=== PATIENT | female | born 1930 | race Caucasian/White ===

== ENCOUNTER → 2016-10-05 | Outpatient (CLI) | payer MEDICARE, MEDICAID ==
[~2016-10-05] MED LIST: ATRV10T PO; DABI150C5 PO; DABI75CA3 PO; DIGO125T PO; DILT60TA PO; DLT120CCR PO; DLT180CCR PO; DLT240CCR PO; ENAL20TA PO; ENAL5TAB PO; EZET10TA5 PO; FURO40TA4 PO; LVT.05T PO; LVT.088T PO; METO-272 PO; METO-333 PO; METO50TA7 PO; POTA10CA43 PO; RIVA20TA2 PO
[2016-10-05 17:17] LABS: BASOPHILS % (AUTO) 0 % (0-10); EOSINOPHILS % (AUTO) 0 % (0-10); LYMPHOCYTES # (AUTO) 3.6 X 10^3 (1.0-4.0); LYMPHOCYTES % (AUTO) 20 % (12-44); MEAN CORPUSCULAR HEMOGLOBIN 32 PG (25-34); MEAN CORPUSCULAR HGB CONC 34 G/DL (32-36); MEAN CORPUSCULAR VOLUME 95 FL (80-99); MEAN PLATELET VOLUME 10.5 FL (7.4-10.4); MONOCYTES # (AUTO) 2.1 X 10^3 (0.0-1.0); MONOCYTES % (AUTO) 12 % (0-12); NEUTROPHILS % (AUTO) 68 % (42-75); PLATELET COUNT 252 10^3/uL (130-400); RED BLOOD COUNT 4.32 10^6/uL (4.35-5.85); RED CELL DISTRIBUTION WIDTH 13.4 % (10.0-14.5); WHITE BLOOD COUNT 17.7 10^3/uL (4.3-11.0)
[2016-10-05 17:40] LABS: BAND NEUTROPHILS 0 %; BASOPHILS % (MANUAL) 0 %; EOSINOPHILS % (MANUAL) 1 %; LYMPHOCYTES % (MANUAL) 34 %; NEUTROPHILS % (MANUAL) 65 %
[2016-10-05 17:43] LABS: ANION GAP 8 MMOL/L (5-14); BLOOD UREA NITROGEN 22 MG/DL (7-18); BUN/CREATININE RATIO 25; CALCIUM 8.6 MG/DL (8.5-10.1); CARBON DIOXIDE 23 MMOL/L (21-32); CHLORIDE 105 MMOL/L (98-107); CREATININE SERUM 0.88 MG/DL (0.60-1.30); GFR ESTIMATED > 60; GLUCOSE 71 MG/DL (70-105); POTASSIUM 4.3 MMOL/L (3.6-5.0); SODIUM 136 MMOL/L (135-145)
[2016-10-05 17:50] LABS: DIGOXIN 0.49 NG/ML (0.80-2.00)
== END ==
LOC: HH 17:10
PROVIDERS: ATTEND Family Medicine
DX: I50.9 Heart failure, unspecified (principal); I10 Essential (primary) hypertension
CPT/HCPCS: 80048; 80162; 85007; 85027

== ENCOUNTER 2016-12-06 09:05 | Outpatient (CLI) | payer MEDICARE, MEDICAID ==
[~2016-12-06] VITALS: Ht 154.9 cm; Wt 70.0 kg
[2016-12-06 09:09] VITALS: BP 128/73
[2016-12-06] MEDS ORDERED: FURO40TA4 PO (09:45)
[2016-12-06] MEDS ORDERED: RIVA20TA PO (09:45)
[2016-12-06] MEDS ORDERED: EZET10TA27 PO (09:45)
[2016-12-06] MEDS ORDERED: ATOR10TA66 PO (09:45)
[2016-12-06] MEDS ORDERED: DIGO125T PO (09:45)
[2016-12-06] MEDS ORDERED: LEVO88TA54 PO (09:45)
[2016-12-06] MEDS ORDERED: POTA10TA10 PO (09:45)
[2016-12-06] MEDS ORDERED: CLIN300C11 PO (09:48)
[2016-12-06] MEDS ORDERED: DILT120C53 PO (09:48)
[2016-12-06] MEDS ORDERED: ACID1TAB5 PO (09:48)
[2016-12-06] MEDS ORDERED: METO-270 PO (09:48)
[2016-12-06] MEDS ORDERED: RANI150T15 PO (09:48)
[2016-12-06 10:10] LABS: CALCIUM 9.6 MG/DL (8.5-10.1); CREATININE SERUM 1.09 MG/DL (0.60-1.30); POTASSIUM 4.5 MMOL/L (3.6-5.0)
[2016-12-06 10:18] LABS: DIGOXIN 1.67 NG/ML (0.80-2.00)
== END 2016-12-06 09:35 | disposition home or self-care (01) ==
LOC: PREOP 09:05
PROVIDERS: ATTEND Specialist
DX: Z01.812 Encounter for preprocedural laboratory examination (principal); K04.7 Periapical abscess without sinus
CPT/HCPCS: 36415; 80048; 80162; 87081

== ENCOUNTER 2021-02-11 10:49 | Emergency (ER) | payer MEDICARE, MEDICAID ==
[~2021-02-11] VITALS: Ht 162 cm; Wt 68.0 kg
[~2021-02-11 10:49] MED LIST changes: +ACID1TAB5 PO; +ATOR10TA66 PO; +CLIN-144 PO; +DIGO125T3 PO; +DILT120C53 PO; +EZET10TA49 PO; +LEVO88TA54 PO; +MTP25TSR PO; +POTA10TA10 PO; +RANI-613 PO
--- NOTE | 2021-02-11 11:04 | ED General ---
General Stated Complaint: GENERLIZED PROBLEMS Source of Information: EMS, Family Exam Limitations: No Limitations History of Present Illness Date Seen by Provider: Feb 11, 2021 Time Seen by Provider: 11:00 Initial Comments To ER by EMS from [facility] with reports of transient hypotension, increased ankle edema, and of unknown significance staff reports that she slept in her bed rather than recliner last night for the first time in 8 years. 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 Hx CHF & a-fib on digoxin, cardizem, xarelto, lasix. DNR status Timing/Duration: 12-24 Hours Severity: Moderate Associated Systoms: Denies Symptoms Allergies and Home Medications Allergies Coded Allergies: Penicillins (Unverified Allergy, Unknown, 06/04/14) codeine (Unverified Adverse Reaction, Unknown, NAUSEA, 09/29/10) Patient Home Medication List Home Medication List Reviewed: Yes Atorvastatin Calcium (Atorvastatin Calcium) 10 Mg Tablet, 10 MG PO HS, (Reported) Entered as Reported by: EVY ROBLERO on 12/06/16944 Clindamycin HCl (Clindamycin HCl) 300 Mg Capsule, 300 MG PO TID, (Reported) Entered as Reported by: EVY ROBLERO on 12/06/16947 Digoxin (Digoxin) 125 Mcg Tablet, 125 MCG PO DAILY, (Reported) Entered as Reported by: EVY ROBLERO on 12/06/16944 Diltiazem HCl (Cartia Xt) 120 Mg Cap.er.24h, 120 MG PO HS, (Reported) Entered as Reported by: EVY ROBLERO on 12/06/16947 Ezetimibe (Ezetimibe) 10 Mg Tablet, 10 MG PO DAILY, (Reported) Entered as Reported by: EVY ROBLERO on 12/06/16944 Furosemide (Furosemide) 40 Mg Tablet, 40 MG PO DAILY, (Reported) Entered as Reported by: EVY ROBLERO on 12/06/16944 L. Acidophilus/Bulgaricus (Lactinex Chewable Tablet) 1 Each Tab.chew, 1 EACH PO QID, (Reported) Entered as Reported by: EVY ROBLERO on 12/06/16947 Levothyroxine Sodium (Levothyroxine Sodium) 88 Mcg Tablet, 88 MCG PO DAILY, (Reported) Entered as Reported by: EVY ROBLERO on 12/06/16944 Metoprolol Succinate (Metoprolol Succinate) 25 Mg Tab.er.24h, 12.5 MG PO DAILY, (Reported) Entered as Reported by: EVY ROBLERO on 12/06/16947 Potassium Chloride (Potassium Chloride) 10 Meq Tablet.er, 10 MEQ PO DAILY, (Reported) Entered as Reported by: EVY ROBLERO on 12/06/16944 Ranitidine HCl (Zantac) 150 Mg Tablet, 150 MG PO DAILY, (Reported) Entered as Reported by: EVY ROBLERO on 12/06/16947 Rivaroxaban (Xarelto Tablet) 20 Mg Tablet, 20 MG PO HS, (Reported) Entered as Reported by: EVY ROBLERO on 12/06/16944 Review of Systems Review of Systems Constitutional: see HPI; No chills, No fever, No malaise EENTM: see HPI Respiratory: no symptoms reported; No cough, No dyspnea on exertion, No hemoptysis, No orthopnea, No phlegm, No short of breath Cardiovascular: see HPI, edema Genitourinary: no symptoms reported Musculoskeletal: no symptoms reported Skin: no symptoms reported Psychiatric/Neurological: No Symptoms Reported Hematologic/Lymphatic: No Symptoms Reported Immunological/Allergic: no symptoms reported Past Bdjixdh-Pigxki-Buafcp Hx Seasonal Allergies Seasonal Allergies: No Past Medical History Hysterectomy COPD Atrial Fibrillation, Hypertension Stroke Reproductive Disorders: 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 5.0oz. 69.094104kt; 29.2 BMI Method: General Appearance: No Apparent Distress, WD/WN, Chronically ill, Other (alert hemodynamically stable with HR a fib 70s-80s and BP for EMS on arrival of 112/80 and for us 116/75. ) Eyes: Bilateral Eye Normal Inspection, Bilateral Eye PERRL HEENT: PERRL/EOMI, TMs Normal Neck: Full Range of Motion, Normal Inspection Respiratory: No Accessory Muscle Use, No Respiratory Distress, Other (crackles LLL) Cardiovascular: Normal Peripheral Pulses, Irregularly Irregular Gastrointestinal: Normal Bowel Sounds, Non Tender, Soft Extremity: Normal Capillary Refill, No Calf Tenderness, Other (3+ pitting edema up to mid tibia bilat. ) Neurologic/Psychiatric: Alert Skin: Normal Color, Warm/Dry Focused Exam Lactate Level 02/11/21 11:30: Lactic Acid Level 1.07 Lactic Acid Level Laboratory Tests Test 02/11/21 11:30 Lactic Acid Level 1.07 MMOL/L (0.50-2.00) Progress/Results/Core Measures Suspected Sepsis SIRS Temperature: Pulse: Respiratory Rate: Laboratory Tests 02/11/21 11:05: White Blood Count 9.3 Blood Pressure / Mean: 02/11/21 11:30: Lactic Acid Level 1.07 Laboratory Tests 02/11/21 11:05: Creatinine 1.55H, INR Comment 1.8H, Platelet Count 225, Total Bilirubin 0.7 Results/Orders Lab Results Laboratory Tests Test 02/11/21 11:05 02/11/21 11:30 02/11/21 14:03 Range/Units White Blood Count 9.3 4.3-11.0 10^3/uL Red Blood Count 3.59 L 3.80-5.11 10^6/uL Hemoglobin 11.8 11.5-16.0 g/dL Hematocrit 36 35-52 % Mean Corpuscular Volume 101 H 80-99 fL Mean Corpuscular Hemoglobin 33 25-34 pg Mean Corpuscular Hemoglobin Concent 33 32-36 g/dL Red Cell Distribution Width 13.2 10.0-14.5 % Platelet Count 225 130-400 10^3/uL Mean Platelet Volume 10.4 9.0-12.2 fL Immature Granulocyte % (Auto) 0 % Neutrophils (%) (Auto) 54 42-75 % Lymphocytes (%) (Auto) 34 12-44 % Monocytes (%) (Auto) 10 0-12 % Eosinophils (%) (Auto) 2 0-10 % Basophils (%) (Auto) 1 0-10 % Neutrophils # (Auto) 5.0 1.8-7.8 10^3/uL Lymphocytes # (Auto) 3.1 1.0-4.0 10^3/uL Monocytes # (Auto) 0.9 0.0-1.0 10^3/uL Eosinophils # (Auto) 0.2 0.0-0.3 10^3/uL Basophils # (Auto) 0.1 0.0-0.1 10^3/uL Immature Granulocyte # (Auto) 0.0 0.0-0.1 10^3/uL Prothrombin Time 20.9 H 12.2-14.7 SEC INR Comment 1.8 H 0.8-1.4 Activated Partial Thromboplast Time 32 24-35 SEC Sodium Level 145 135-145 MMOL/L Potassium Level 4.9 3.6-5.0 MMOL/L Chloride Level 110 H 98-107 MMOL/L Carbon Dioxide Level 25 21-32 MMOL/L Anion Gap 10 5-14 MMOL/L Blood Urea Nitrogen 26 H 7-18 MG/DL Creatinine 1.55 H 0.60-1.30 MG/DL Estimat Glomerular Filtration Rate 32 BUN/Creatinine Ratio 17 Glucose Level 93 70-105 MG/DL Calcium Level 9.8 8.5-10.1 MG/DL Corrected Calcium 10.0 8.5-10.1 MG/DL Total Bilirubin 0.7 0.1-1.0 MG/DL Aspartate Amino Transf (AST/SGOT) 13 5-34 U/L Alanine Aminotransferase (ALT/SGPT) 7 0-55 U/L Alkaline Phosphatase 75 40-136 U/L B-Type Natriuretic Peptide 247.5 H <100.0 PG/ML Total Protein 8.1 6.4-8.2 GM/DL Albumin 3.7 3.2-4.5 GM/DL Procalcitonin 0.10 H <0.10 NG/ML Digoxin Level 1.83 0.80-2.00 NG/ML Lactic Acid Level 1.07 0.50-2.00 MMOL/L Urine Color YELLOW Urine Clarity CLEAR Urine pH 5.5 5-9 Urine Specific [place] 1.020 1.016-1.022 Urine Protein NEGATIVE NEGATIVE Urine Glucose (UA) NEGATIVE NEGATIVE Urine Ketones NEGATIVE NEGATIVE Urine Nitrite NEGATIVE NEGATIVE Urine Bilirubin NEGATIVE NEGATIVE Urine Urobilinogen 0.2 < = 1.0 MG/DL Urine Leukocyte Esterase NEGATIVE NEGATIVE Urine RBC (Auto) NEGATIVE NEGATIVE Urine RBC NONE /HPF Urine WBC NONE /HPF Urine Squamous Epithelial Cells 0-2 /HPF Urine Crystals PRESENT H /LPF Urine Amorphous Sediment MOD TAMIKO URATES H /LPF Urine Bacteria NEGATIVE /HPF Urine Casts NONE /LPF Urine Mucus NEGATIVE /LPF Urine Culture Indicated NO My Orders Orders - PHILIPPE HIDALGO APRN Cbc With Automated Diff (02/11/21 10:59) Comprehensive Metabolic Panel (02/11/21 10:59) Blood Culture (02/11/21 10:59) Sputum Culture (02/11/21 10:59) Urinalysis (02/11/21 10:59) Urine Culture (02/11/21 10:59) Protime With Inr (02/11/21 10:59) Partial Thromboplastin Time (02/11/21 10:59) Chest 1 View, Ap/Pa Only (02/11/21 10:59) Ed Iv/Invasive Line Start (02/11/21 10:59) Vital Signs Adult Sepsis Patie Q15M (02/11/21 10:59) O2 (02/11/21 10:59) Remove Rings In Anticipation O (02/11/21 10:59) Lactic Acid Analyzer (02/11/21 10:59) BNP (02/11/21 10:59) Straight Cath (Urinary) (02/11/21 10:59) Ct Chest Wo (02/11/21 12:08) Procalcitonin (Pct) (02/11/21 12:09) Ns Iv 500 Ml (Sodium Chloride 0.9%) (02/11/21 14:00) Digoxin (02/11/21 14:36) Vital Signs/I&O 02/11/21 10:49 Temp 36.3 Pulse 84 Resp 12 B/P (MAP) 116/64 (81) Pulse Ox 97 O2 Delivery Room Air Capillary Refill : Diagnostic Imaging Diagonstic Imaging: CT Comments NAME: [facility] REC#: [id number] PT STATUS: REG ER : 1930 PHYSICIAN: PHILIPPE HIDALGO APRN ADMIT DATE: 02/11/21/ER Draft Date of Exam:02/11/21 CT CHEST WO EXAMINATION: CT chest without contrast. TECHNIQUE: Multiple contiguous axial images were obtained through the chest without the use of intravenous contrast. All CT scans use one or more of the following dose optimizing techniques: automated exposure control, MA and/or KvP adjustment based on patient size and exam type or iterative reconstruction. HISTORY: pneumothorax COMPARISON: 02/11/2021. FINDINGS: Thyroid: There is asymmetric enlargement of the right lobe of the thyroid gland. Mediastinum: Heart size is enlarged with a small pericardial effusion. Calcifications of the aorta and coronary vessels. Thoracic aorta is normal in caliber. No suspicious lymphadenopathy. Lungs and airways: There is mild biapical scarring. Linear scarring or atelectasis is seen within the lingula and left lower lobe. No pleural effusion, pneumothorax, or consolidation. No suspicious pulmonary lesion. The airways are normal. Upper abdomen: There is a hyperdense right renal sinus lesion measuring up to 1.5 cm. Musculoskeletal: Compression fracture of the T11 vertebral body. Multilevel degenerative changes of the spine. No suspicious osseous lesion. IMPRESSION: 1. No pneumothorax. Finding on prior radiograph may represent artifact from patient positioning or external device. 2. Asymmetric enlargement of the right lobe of the thyroid gland. Consider thyroid ultrasound for baseline characterization. 3. Hyperdense right renal sinus lesion measuring up to 1.5 cm. Consider follow-up with renal ultrasound. 4. Age-indeterminate compression fracture of the T11 vertebral body. 4. Cardiomegaly with small pericardial effusion. Dictated on workstation # [id number] Dict: 02/11/21 1320 Trans: 02/11/21 1334 [id number] [id number] Interpreted by: DEL PEREA DO Electronically signed by: Departure Communication (Admissions) Family Conversation 1407-blood pressure 93/60. We will give 500 mL normal saline. 1535-blood pressure 107/63. Normal saline bolus still infusing. Plan to transfer back to the detention. Given the dry mucous membranes, the elevated BUN and creatinine suspect she may be a little dry from her Lasix use. NAME: [facility] REC#: [id number] PT STATUS: REG ER : 1930 PHYSICIAN: PHILIPPE HIDALGO APRN ADMIT DATE: 02/11/21/ER Draft Date of Exam:02/11/21 CHEST 1 VIEW, AP/PA ONLY INDICATION: Sepsis. COMPARISON: 02/20/2012. FINDINGS: There is blunting of the left costophrenic angle. Increased interstitial infiltrates are noted throughout both lungs. A small pneumothorax has developed on the left. The heart is enlarged. Pulmonary vasculature does not appear increased. IMPRESSION: 1. There is a small pneumothorax now present on the left. 2. There is left basilar pleural effusion. Interstitial infiltrates throughout suggest some pulmonary edema. Dictated on workstation # [id number] Dict: 02/11/21 1132 Trans: 02/11/21 1135 CV [id number] Interpreted by: MARVIN OSBORN MD Electronically signed by: Impression Primary Impression: Hypotension Disposition: ADMITTED INPATIENT Condition: Stable Departure-Patient Inst. Decision time for Depature: 15:34 Referrals: CARTER KINNEY MD (PCP/Family) Primary Care Physician Patient Instructions: Low Blood Pressure (DC) Add. Discharge Instructions: . Follow-up with Dr. Kinney next week 2. Return ER for any concerns. PHILIPPE HIDALGO WRAPPER SIZER Feb 11, 2021 11:04
[2021-02-11 11:13] LABS: BASOPHILS # (AUTO) 0.1 10^3/uL (0.0-0.1); BASOPHILS % (AUTO) 1 % (0-10); EOSINOPHILS # (AUTO) 0.2 10^3/uL (0.0-0.3); EOSINOPHILS % (AUTO) 2 % (0-10); HEMATOCRIT 36 % (35-52); HEMOGLOBIN 11.8 g/dL (11.5-16.0); LYMPHOCYTES # (AUTO) 3.1 10^3/uL (1.0-4.0); LYMPHOCYTES % (AUTO) 34 % (12-44); MEAN CORPUSCULAR HEMOGLOBIN 33 pg (25-34); MEAN CORPUSCULAR HGB CONC 33 g/dL (32-36); MEAN CORPUSCULAR VOLUME 101 fL (80-99); MEAN PLATELET VOLUME 10.4 fL (9.0-12.2); MONOCYTES # (AUTO) 0.9 10^3/uL (0.0-1.0); MONOCYTES % (AUTO) 10 % (0-12); NEUTROPHILS % (AUTO) 54 % (42-75); PLATELET COUNT 225 10^3/uL (130-400); WHITE BLOOD COUNT 9.3 10^3/uL (4.3-11.0)
[2021-02-11 11:28] LABS: ALBUMIN 3.7 GM/DL (3.2-4.5); INR 1.8 (0.8-1.4); POTASSIUM 4.9 MMOL/L (3.6-5.0); PROTHROMBIN TIME PATIENT 20.9 SEC (12.2-14.7)
[2021-02-11 11:30] LABS: CALCIUM 9.8 MG/DL (8.5-10.1)
[2021-02-11 11:31] LABS: TOTAL PROTEIN 8.1 GM/DL (6.4-8.2)
[2021-02-11 11:33] LABS: BILIRUBIN,TOTAL 0.7 MG/DL (0.1-1.0)
[2021-02-11 11:34] LABS: CREATININE SERUM 1.55 MG/DL (0.60-1.30)
--- NOTE | 2021-02-11 11:35 | Diagnostic Imaging Report ---
INDICATION: Sepsis. COMPARISON: 02/20/2012. FINDINGS: There is blunting of the left costophrenic angle. Increased interstitial infiltrates are noted throughout both lungs. A small pneumothorax has developed on the left. The heart is enlarged. Pulmonary vasculature does not appear increased. IMPRESSION: 1. There is a small pneumothorax now present on the left. 2. There is left basilar pleural effusion. Interstitial infiltrates throughout suggest some pulmonary edema. Dictated by: Dictated on workstation # [id number]
--- NOTE | 2021-02-11 13:34 | Diagnostic Imaging Report ---
EXAMINATION: CT chest without contrast. TECHNIQUE: Multiple contiguous axial images were obtained through the chest without the use of intravenous contrast. All CT scans use one or more of the following dose optimizing techniques: automated exposure control, MA and/or KvP adjustment based on patient size and exam type or iterative reconstruction. HISTORY: pneumothorax COMPARISON: 02/11/2021. FINDINGS: Thyroid: There is asymmetric enlargement of the right lobe of the thyroid gland. Mediastinum: Heart size is enlarged with a small pericardial effusion. Calcifications of the aorta and coronary vessels. Thoracic aorta is normal in caliber. No suspicious lymphadenopathy. Lungs and airways: There is mild biapical scarring. Linear scarring or atelectasis is seen within the lingula and left lower lobe. No pleural effusion, pneumothorax, or consolidation. No suspicious pulmonary lesion. The airways are normal. Upper abdomen: There is a hyperdense right renal sinus lesion measuring up to 1.5 cm. Musculoskeletal: Compression fracture of the T11 vertebral body. Multilevel degenerative changes of the spine. No suspicious osseous lesion. IMPRESSION: 1. No pneumothorax. Finding on prior radiograph may represent artifact from patient positioning or external device. 2. Asymmetric enlargement of the right lobe of the thyroid gland. Consider thyroid ultrasound for baseline characterization. 3. Hyperdense right renal sinus lesion measuring up to 1.5 cm. Consider follow-up with renal ultrasound. 4. Age-indeterminate compression fracture of the T11 vertebral body. 4. Cardiomegaly with small pericardial effusion. Dictated by: Dictated on workstation # [id number]
[2021-02-11] MEDS ORDERED: NS IV 500 ML 500 ML IV SCH (14:00)
[2021-02-11 14:11] LABS: BILIRUBIN,URINE NEGATIVE (NEGATIVE); CLARITY,URINE CLEAR; COLOR,URINE YELLOW; GLUCOSE, URINE (UA) NEGATIVE (NEGATIVE); KETONES,URINE NEGATIVE (NEGATIVE); LEUKOCYTE ESTERASE ,URINE NEGATIVE (NEGATIVE); NITRITE,URINE NEGATIVE (NEGATIVE); PH,URINE 5.5 (5-9); PROTEIN,URINE NEGATIVE (NEGATIVE)
[2021-02-11 14:25] LABS: AMORPHOUS SEDIMENT,UR MOD AMOR URATES /LPF; BACTERIA,URINE NEGATIVE /HPF; SQUAMOUS EPITHELIAL CELL,UR 0-2 /HPF
[2021-02-11 16:31] VITALS: BP 107/71
== END 2021-02-11 15:55 | disposition other institution (70) ==
LOC: EDUNIT# 10:49 → ER 10:50
DX: I95.9 Hypotension, unspecified (principal); J44.9 Chronic obstructive pulmonary disease, unspecified; I10 Essential (primary) hypertension; K21.9 Gastro-esophageal reflux disease without esophagitis; I48.91 Unspecified atrial fibrillation; Z86.73 Personal history of transient ischemic attack (TIA), and cerebral infarction without residual deficits; Z79.01 Long term (current) use of anticoagulants; Z79.899 Other long term (current) drug therapy
CPT/HCPCS: 36415; 71045; 71250; 80053; 80162; 81000; 83605; 83880; 84145; 85025; 85610; 85730; 87040; 87088

== ENCOUNTER 2022-05-26 05:38 | Outpatient (CLI) | payer MEDICARE, MEDICAID ==
[~2022-05-26] VITALS: Ht 152.4 cm; Wt 61.1 kg
[2022-05-31] MEDS ORDERED: FURO20TA4 PO ×2 (09:19)
[2022-05-31] MEDS ORDERED: NYST15PO4 TP (09:19)
[2022-05-31] MEDS ORDERED: CHOL125C7 PO (09:19)
[2022-05-31] MEDS ORDERED: LACTINEX PO (09:19)
[2022-05-31] MEDS ORDERED: NYST15CR35 TP (09:19)
[2022-05-31] MEDS ORDERED: FAMO-144 PO (09:19)
[2022-05-31] MEDS ORDERED: MECO10005 PO (09:19)
[2022-05-31] MEDS ORDERED: COLE1TAB PO (09:19)
== END 2022-05-31 15:55 | disposition home or self-care (01) ==
LOC: PREOP 05:38
PROVIDERS: ATTEND Surgery
DX: Z01.818 Encounter for other preprocedural examination (principal)

== ENCOUNTER 2022-06-02 11:00 | Day surgery (SDC) | payer MEDICARE, MEDICAID ==
[2022-06-02] VITALS (11 sets, daily range): BP systolic 119–133; BP diastolic 56–86
[~2022-06-02] VITALS: Ht 152 cm; Wt 61.1 kg
[~2022-06-02 11:00] MED LIST changes: +CHOL125C7 PO; +COLE1TAB PO; +FAMO-144 PO; +FURO20TA4 PO; +LACTINEX PO; +MECO10005 PO; +NYST15CR35 TP; +NYST15PO4 TP
[2022-06-02] MEDS ORDERED: CLINDAMYCIN 600 MG/50 ML IVPB 50 ML IV ONE (11:15)
[2022-06-02] MEDS ORDERED: LACTATED RINGERS 1,000 ML IV PRN (11:15)
[2022-06-02] MEDS ORDERED: proPOfol 200 MG/20 ML (DIPRIVAN) VIAL IV ONE (11:43)
[2022-06-02] MEDS ORDERED: ONDANSETRON 4 MG/2 ML (SDV) Z0FRAN ONE (11:43)
[2022-06-02] MEDS ORDERED: LIDOCAINE PF 2% 5 ML (XYLOCAINE) VIAL ONE (11:43)
[2022-06-02] MEDS ORDERED: SEVOFLURANE (ULTANE) 15 ML INHAL SOLN ONE ×2 (11:43→12:34)
[2022-06-02] MEDS ORDERED: fentaNYL INJ 100 MCG/2 ML AMP ONE (11:43)
--- NOTE | 2022-06-02 11:47 | Progress Note-Pre Operative ---
Pre-Operative Progress Note Date H&P Reviewed: Jun 02, 2022 Time H&P Reviewed: 11:46 History & Physical: H&P Reviewed, Patient Examed, No changes noted Pre-Operative Diagnosis: left skin lesion AMANDA STEVEN DO Jun 02, 2022 11:47
[2022-06-02] MEDS ORDERED: PHENYLEPHRINE 100 MCG/ML 10 ML (ANESTHESIA) SYR ONE (12:13)
[2022-06-02] MEDS ORDERED: BUP/EPI 0.5% 1:200,000 (SENSORCAINE) 30 ML VIAL INJ ONE (12:29)
--- NOTE | 2022-06-02 12:42 | Anesthesia-General Post-Op ---
General Patient Condition Mental Status/LOC: Same as Preop Cardiovascular: Satisfactory Nausea/Vomiting: Absent Respiratory: Satisfactory Pain: Controlled Complications: Absent Post Op Complications Complications None Follow Up Care/Instructions Patient Instructions None needed. Anesthesia/Patient Condition Patient Condition Patient is doing well, no complaints, stable vital signs, no apparent adverse anesthesia problems. No complications reported per nursing. GEOVANNA FORD CRNA Jun 02, 2022 12:41
[2022-06-02] MEDS ORDERED: fentaNYL INJ 100 MCG/2 ML AMP IVP ONE (12:45)
[2022-06-02] MEDS ORDERED: MEPERIDINE (DEMEROL) INJ 50 MG/ML IVP ONE (12:45)
[2022-06-02] MEDS ORDERED: ONDANSETRON 4 MG/2 ML (SDV) Z0FRAN IVP PRN (12:45)
--- NOTE | 2022-06-02 12:52 | Discharge Inst-Simple/Standard ---
Discharge Inst-Standard Patient Instructions/Follow Up Plan of Care/Instructions/FU: 1 WEEK MAURIZIO Activity as Tolerated: No Discharge Diet: Regular Diet Other Inst to Patient Follow up Appt: Make appointment for 1 week. Instructions: No lifting greater than 10 pounds. No strenuous activity. May shower in 24 hours, no tub bath or soaking. Use incentive spirometer at home as directed. No Smoking Skin/Wound Care: DRESSING CHANGES NEED TO BE DONE DAILY AND IF DRESSING IS SATURATED. REMOVE OLD DRESSING, IRRIGATE WITH STERILE WATER OR SALINE, PAT DRY, PACK WOUND TO LEFT LEG WITH KERLEX AND WRAP THEN SECURE DRESSING. Symptoms to Report: Appetite Changes, Extremity Discoloration, Numbness/Tingling, Swelling Increased, Bleeding Excessive, Eyesight Changes, Pain Increased, Urine Color Change, Constipation(Persistent), Fever over 101 degree F, Pain/Pressure in chest, Urinating Difficulty, Cough Up/Vomit Blood, Heart Beat Irreg/Pounding, Pain/Pressure in jaw, Vaginal Bleeding Increase, Cramps in feet or legs, Lightheadedness, Pain/Pressure in shoulder, Diarrhea(Persistent), Memory Changes Suddenly, Questions/Concerns, Weight gain consecutive days, Dizziness/Fainting, Nausea/Vomiting, Shortness of Breath, Weight gain over 2 pounds If questions or concerns contact your physician Or seek help at emergency department. AMANDA STEVEN DO Jun 02, 2022 12:51
--- NOTE | 2022-06-02 12:53 | Progress Note-Post Operative ---
Post-Operative Progess Note Surgeon (s)/Software Engineer Mobile (s) Surgeon AMANDA STEVEN DO Software Engineer Mobile: NA Pre-Operative Diagnosis left skin lesion Post-Operative Diagnosis SAME Procedure & Operative Findings Date of Procedure 06/02/22 Procedure Performed/Findings EXCISION OF SKIN LESION LEFT LOWER EXTREMITY 5.5X4CM. Anesthesia Type GENERAL Estimated Blood Loss Estimated blood loss (mL): MINIMAL Specimens/Packing Specimens Removed LEFT LOWER LEG EXTREMITY. Packing: KERLEX AMANAD STEVEN DO Jun 02, 2022 12:53
[2022-06-02] MEDS ORDERED: APIX2.5T PO (13:19)
--- NOTE | 2022-06-04 00:23 | OPERATIVE REPORT ---
DATE OF SERVICE: 06/02/2022 PREOPERATIVE DIAGNOSIS: Left leg skin lesion. POSTOPERATIVE DIAGNOSIS: Left leg skin lesion. PROCEDURE: Excision of left leg skin lesion, 5.5 x 4 cm. SURGEON: Amanda Parker DO ANESTHESIA: General. ESTIMATED BLOOD LOSS: Minimal. COMPLICATIONS: None. INDICATIONS: The patient is an 89-year-old female with a growing mass to the left lower extremity. Her and family wished to have it removed. They understand the need to keep this open due to the size and location and will have the healing from the bottom out, which may be more complicated due to her lower extremity swelling. They understand and wished to proceed. Consent was signed in the chart. DESCRIPTION OF PROCEDURE: The patient was taken to the operating suite. She was prepped and draped in sterile fashion. Timeout was performed. Local anesthetic was infiltrated around the lesion. A circular incision was made around the lesion measuring 5.5 x 4 cm. Skin and subcutaneous tissue was then removed using cautery. Hemostasis was achieved. Lots of edema throughout the tissue. The specimen was labeled long suture lateral, short suture superiorly. The wound was then packed with Kerlix and sterile bandage was applied. The patient tolerated the procedure well without complications, taken to recovery room in stable condition. Job ID: [id number] DocumentID: [id number] Dictated Date: 06/03/2022 22:01:29 Grounds Maintenance Supervisor Date: 06/04/2022 00:21:00 Dictated By: AMANDA PARKER DO
== END 2022-06-02 14:50 ==
LOC: SDC 11:00
PROVIDERS: ATTEND Surgery
DX: C44.712 Basal cell carcinoma of skin of right lower limb, including hip (principal); Z87.891 Personal history of nicotine dependence
CPT/HCPCS: 87081

== ENCOUNTER 2022-06-04 11:27 | Emergency (ER) | payer MEDICARE, MEDICAID ==
[~2022-06-04] VITALS: Ht 157.5 cm; Wt 50.0 kg
[~2022-06-04 11:27] MED LIST changes: +APIX2.5T PO
[2022-06-04] MEDS ORDERED: ACETAMINOPHEN 500 MG TAB (TYLENOL) PO ONE (11:45)
--- NOTE | 2022-06-04 11:56 | ED Integumentary General ---
General Chief Complaint: Skin/Wound Problems Stated Complaint: LEG WOUND Nursing Triage Note: PT TO ED BY EMS FROM [facility] WITH C/O L LEG WOUND. EMS REPORTS PT HAD BASAL CELL CARCINOMA REMOVED FROM LLE ON MONDAY BY DR. STEVEN. [facility] STAFF CALLED EMS BECAUSE THEY WERE CONCERNED ABOUT REMOVING THE GAUZE BECAUSE PT IS ON BLOOD THINNER. REDNESS NOTED AROUND WOUND. Source: family Exam Limitations: no limitations History of Present Illness Date Seen by Provider: Jun 04, 2022 Time Seen by Provider: 11:35 Initial Comments 89-year-old female presents to ER via EMS from assisted living. Patient unable to contribute to assessment. History obtained from daughter. Daughter states that patient had a basal cell carcinoma removed from her right lower leg on . States that she is post to do daily dressing changes, and today she was unable to pull the dressing off due to it being stuck to the wound, states she was concerned about pulling it off due to blood thinners. Daughter also reports new redness around the wound that was not there yesterday. Denies fevers. Allergies and Home Medications Allergies Coded Allergies: Penicillins (Verified Allergy, Unknown, 06/02/22) codeine (Verified Adverse Reaction, Unknown, NAUSEA, 06/02/22) Patient Home Medication List Home Medication List Reviewed: Yes Apixaban (Eliquis) Unknown Strength Tablet, Unknown Dose PO BID, (Reported) Entered as Reported by: MICAH SMITH on 06/02/22 1319 Atorvastatin Calcium (Atorvastatin Calcium) 10 Mg Tablet, 10 MG PO HS, (Reported) Entered as Reported by: EVY ROBLERO on 12/06/16944 Cholecalciferol (Vitamin D3) (D3-5000) 125 Mcg (5000 Unit) Capsule, 125 MCG PO WEEK, (Reported) Entered as Reported by: Sosa Tolbert on 05/31/22918 Colestipol HCl (Colestipol HCl) 1 Gram Tablet, 1 GM PO HS, (Reported) Entered as Reported by: Sosa Tolbert on 05/31/22918 Digoxin (Digoxin) 125 Mcg Tablet, 125 MCG PO DAILY, (Reported) Entered as Reported by: EVY ROBLERO on 12/06/16944 Diltiazem HCl (Cartia Xt) 120 Mg Cap.er.24h, 120 MG PO HS, (Reported) Entered as Reported by: EVY ROBLERO on 12/06/16947 Famotidine (Acid Vp Respiratory (FAMOTIDINE)) 10 Mg Tablet, 10 MG PO BID, (Reported) Entered as Reported by: Sosa Tolbert on 05/31/22918 Furosemide (Furosemide) 20 Mg Tablet, 20 MG PO DAILY, (Reported) Entered as Reported by: Sosa Tolbert on 05/31/22918 Furosemide (Furosemide) 20 Mg Tablet, 20 MG PO NOON PRN for SBP>115, (Reported) Entered as Reported by: Sosa Tolbert on 05/31/22918 Levothyroxine Sodium (Levothyroxine Sodium) 88 Mcg Tablet, 88 MCG PO DAILY, (Reported) Entered as Reported by: EVY ROBLERO on 12/06/16944 Mecobalamin (B12 Active) 1,000 Mcg Tab.chew, 500 MCG PO DAILY, (Reported) Entered as Reported by: Sosa Tolbert on 05/31/22918 Metoprolol Succinate (Metoprolol Succinate) 25 Mg Tab.er.24h, 12.5 MG PO DAILY, (Reported) Entered as Reported by: EVY ROBLERO on 12/06/16947 Nystatin (Nystatin) 100,000 Unit/Gram Cream..g., 15 GM TP BID, (Reported) Entered as Reported by: Sosa Tolbert on 05/31/22918 Nystatin (Nystatin) 100,000 Unit/Gram Powder, 15 GM TP BID, (Reported) Entered as Reported by: Sosa Tolbert on 05/31/22918 Rivaroxaban (Xarelto Tablet) 20 Mg Tablet, 20 MG PO HS, (Reported) Entered as Reported by: EVY ROBLERO on 12/06/16944 [Lactinex] , 1 TAB PO BID, (Reported) Entered as Reported by: Sosa Tolbert on 05/31/22918 Discontinued Medications Clindamycin HCl (Clindamycin HCl) 300 Mg Capsule, 300 MG PO TID, (Reported) Discontinued Reason: No Longer Taking Entered as Reported by: EVY ROBLERO on 12/06/16947 Ezetimibe (Ezetimibe) 10 Mg Tablet, 10 MG PO DAILY, (Reported) Discontinued Reason: No Longer Taking Entered as Reported by: EVY ROBLERO on 12/06/16 0945 Furosemide (Furosemide) 40 Mg Tablet, 40 MG PO DAILY, (Reported) Discontinued Reason: New Order Entered as Reported by: EVY ROBLERO on 12/06/16 0945 L. Acidophilus/Bulgaricus (Lactinex Chewable Tablet) 1 Each Tab.chew, 1 EACH PO QID, (Reported) Discontinued Reason: No Longer Taking Entered as Reported by: EVY ROBLERO on 12/06/16 0948 Potassium Chloride (Potassium Chloride) 10 Meq Tablet.er, 10 MEQ PO DAILY, (Reported) Discontinued Reason: No Longer Taking Entered as Reported by: EVY ROBLERO on 12/06/1645 Ranitidine HCl (Zantac) 150 Mg Tablet, 150 MG PO DAILY, (Reported) Discontinued Reason: No Longer Taking Entered as Reported by: EVY ROBLERO on 12/06/1648 Review of Systems Review of Systems Constitutional: no symptoms reported Respiratory: no symptoms reported Cardiovascular: no symptoms reported Skin: change in color, other (Surgical wound, erythema) Past [id number]-[id number]-[id number] Hx Patient Social History Tobacco Use?: No Smoking Status: Former Smoker Use of E-Cig and/or Vaping dev: No Substance use?: No Alcohol Use?: No Pt feels they are or have been: No Immunizations Up To Date Tetanus Booster (TDap): Unknown Influenza Vaccine Up-to-Date: Yes; Up-to-Date First/Initial COVID19 Vaccinat: X4 Second COVID19 Vaccination Sonu: X4 Third COVID19 Vaccination Date: X4 Seasonal Allergies Seasonal Allergies: Yes Past Medical History Surgery/Hospitalization HX: COPD, CHF, DYSPHASIA AND APHASIA R/T STROKE Surgeries: Yes (SKIN CANCER) Hysterectomy Respiratory: Yes COPD Currently Using CPAP: No Currently Using BIPAP: No Cardiac: Yes Atrial Fibrillation, Hypertension Neurological: Yes Dementia, Stroke Reproductive Disorders: No [employer] History: Hysterectomy Sexually Transmitted Disease: No Genitourinary: No Gastrointestinal: No Gastroesophageal Reflux, Diverticulosis, Chronic Diarrhea Musculoskeletal: Yes Osteoporosis, Rheumatoid Arthritis Endocrine: No HEENT: Yes Cataract Loss of Vision: Right Hearing Impairment: Hard of Hearing Cancer: Yes Skin Did You Recieve Any Treatments: Yes What Type of Treatment Did You: Surgical Intervention Psychosocial: No Integumentary: No Blood Disorders: No Adverse Reaction/Blood Tranf: No Physical Exam Vital Signs Vital Signs - First Documented 06/04/22 11:30 Pulse 116 Resp 16 B/P (MAP) 107/87 (94) Pulse Ox 98 O2 Delivery Room Air Capillary Refill : General Appearance: WD/WN, no apparent distress Neck: supple, normal inspection Cardiovascular: no gallop, no JVD, no murmur, irregularly irregular, other (Pitting edema in bilateral lower extremities) Respiratory: lungs clear, normal breath sounds, no respiratory distress, no accessory muscle use Extremities: pedal edema, other (Wound to left lower leg) Neurologic/Psychiatric: alert, disoriented x 3 Skin Problem Location: lower extremities (Left lower leg) Skin Problem Character: erythema, other (Surgical wound, areas of granulation, areas of slough, surrounding erythema to the skin ) Progress/Results/Core Measures Results/Orders Lab Results Laboratory Tests Test 06/04/22 12:05 Range/Units White Blood Count 9.4 4.3-11.0 10^3/uL Red Blood Count 3.33 L 3.80-5.11 10^6/uL Hemoglobin 10.7 L 11.5-16.0 g/dL Hematocrit 33 L 35-52 % Mean Corpuscular Volume 99 80-99 fL Mean Corpuscular Hemoglobin 32 25-34 pg Mean Corpuscular Hemoglobin Concent 33 32-36 g/dL Red Cell Distribution Width 13.2 10.0-14.5 % Platelet Count 203 130-400 10^3/uL Mean Platelet Volume 10.2 9.0-12.2 fL Immature Granulocyte % (Auto) 0 % Neutrophils (%) (Auto) 66 42-75 % Lymphocytes (%) (Auto) 23 12-44 % Monocytes (%) (Auto) 10 0-12 % Eosinophils (%) (Auto) 1 0-10 % Basophils (%) (Auto) 0 0-10 % Neutrophils # (Auto) 6.2 1.8-7.8 10^3/uL Lymphocytes # (Auto) 2.1 1.0-4.0 10^3/uL Monocytes # (Auto) 0.9 0.0-1.0 10^3/uL Eosinophils # (Auto) 0.1 0.0-0.3 10^3/uL Basophils # (Auto) 0.0 0.0-0.1 10^3/uL Immature Granulocyte # (Auto) 0.0 0.0-0.1 10^3/uL Prothrombin Time 27.6 H 12.2-14.7 SEC INR Comment 2.5 H 0.8-1.4 Activated Partial Thromboplast Time 38 H 24-35 SEC Sodium Level 140 135-145 MMOL/L Potassium Level 3.8 3.6-5.0 MMOL/L Chloride Level 105 98-107 MMOL/L Carbon Dioxide Level 26 21-32 MMOL/L Anion Gap 9 5-14 MMOL/L Blood Urea Nitrogen 21 H 7-18 MG/DL Creatinine 1.56 H 0.60-1.30 MG/DL Estimat Glomerular Filtration Rate 32 BUN/Creatinine Ratio 13 Glucose Level 102 70-105 MG/DL Lactic Acid Level 1.04 0.50-2.00 MMOL/L Calcium Level 9.3 8.5-10.1 MG/DL Corrected Calcium 9.5 8.5-10.1 MG/DL Total Bilirubin 0.5 0.1-1.0 MG/DL Aspartate Amino Transf (AST/SGOT) 11 5-34 U/L Alanine Aminotransferase (ALT/SGPT) 6 0-55 U/L Alkaline Phosphatase 76 40-136 U/L Total Protein 8.9 H 6.4-8.2 GM/DL Albumin 3.7 3.2-4.5 GM/DL My Orders Orders - XAVIER DOYLE APRN Acetaminophen Tablet (Tylenol Tablet) (06/04/22 11:45) Cbc With Automated Diff (06/04/22 11:45) Comprehensive Metabolic Panel (06/04/22 11:45) Blood Culture (06/04/22 11:45) Protime With Inr (06/04/22 11:45) Partial Thromboplastin Time (06/04/22 11:45) Ed Iv/Invasive Line Start (06/04/22 11:45) Vital Signs Adult Sepsis Patie Q15M (06/04/22 11:45) Remove Rings In Anticipation O (06/04/22 11:45) Lactic Acid Analyzer (06/04/22 11:45) Ekg Tracing (06/04/22 11:46) Ns Iv 1000 Ml (Sodium Chloride 0.9%) (06/04/22 12:00) Wound Culture (06/04/22 12:03) Medications Given in ED Current Medications Medications Dose Ordered Sig/Kiki Route Start Time Stop Time Status Last Admin Dose Admin Acetaminophen 1,000 mg ONCE ONCE PO 06/04/22 11:45 06/04/22 11:46 DC 06/04/22 12:14 1,000 MG Vital Signs/I&O 06/04/22 11:30 Pulse 116 Resp 16 B/P (MAP) 107/87 (94) Pulse Ox 98 O2 Delivery Room Air Blood Pressure Mean: 94 Progress Progress Note #1: Time: 12:01 Progress Note Patient seen and evaluated, resting comfortably bed, no acute distress. Based on exam and symptoms, concern for sepsis due to wound of left lower leg. Also concern for A-fib RVR, currently takes metoprolol 12.5 mg daily, digoxin 125 mcg daily, diltiazem ER 120 mg daily, and Xarelto 20 mg daily. Work-up initiated including CBC, CMP, coags, lactic acid, blood cultures x2, wound culture. Tylenol and fluids ordered. We will only order 1 L of fluid at this time due to bilateral lower extremity edema and patient takes Lasix. Progress Note #2: Time: 12:49 Progress Note Labs reviewed. CBC shows normal WBC 9.4, decreased RBC 3.33, decreased hemoglobin 10.7, decreased hematocrit 33. CMP shows elevated BUN 21, elevated creatinine 1.56, decreased GFR 32, similar to previous labs. Lactic acid normal 1.04. Coags show elevated PT 27.6, elevated INR 2.5, elevated APTT 38. Heart rate ranging from low 100s to mid 120s, mostly staying in the 100-teens. Will finish out bolus of IV fluids and reevaluate. Progress Note #3: Time: 13:14 Progress Note Heart rate improved to the low 100s to mid 100-teens after IV fluids. Will have nurse dressed wound with Xeroform and provide Xeroform to daughter for dressing changes. Instructed to have patient follow-up with Dr. Steven as scheduled on June 13. Discharge instructions and return precautions provided. Initial ECG Impression Date: Jun 04, 2022 Initial ECG Impression Time: 12:13 Initial ECG Rate: 119 Initial ECG Rhythm: A Fib/Flutter Initial ECG Intervals: Normal Initial ECG Impression: Atrial Fibrillation w/RVR Initial ECG Comparisson: Unchanged Departure Communication (Admissions) Time/Spoke to Consulting Phy: 12:20 Dr. Hendrickson in the ED at this time. He saw patient. He does not think the wound appears infected. Impression Primary Impression: Encounter for evaluation of wound Disposition: HOME, SELF-CARE Condition: Stable Departure-Patient Inst. Decision time for Depature: 13:15 Referrals: CARTER KINNEY MD (PCP/Family) Primary Care Physician Patient Instructions: Wound Care (DC) Add. Discharge Instructions: Continue daily dressing changes, use Xeroform to help prevent dressing from sticking and prevent bacterial infection. The wound has been cultured, if bacteria grows, an antibiotic will be prescribed at that time. Follow-up with Dr. Steven as scheduled on June 13. Return for worsening pain, fever, increased redness, discolored odorous drainage, or any other new, concerning, or worsening symptoms. All discharge instructions reviewed with patient and/or family. Voiced understanding. XAVIER DOYLE APRN Jun 04, 2022 11:56
[2022-06-04] MEDS ORDERED: NS IV 1000 ML 1,000 ML IV SCH (12:00)
[2022-06-04 12:19] LABS: BASOPHILS % (AUTO) 0 % (0-10); EOSINOPHILS # (AUTO) 0.1 10^3/uL (0.0-0.3); EOSINOPHILS % (AUTO) 1 % (0-10); HEMATOCRIT 33 % (35-52); HEMOGLOBIN 10.7 g/dL (11.5-16.0); LYMPHOCYTES # (AUTO) 2.1 10^3/uL (1.0-4.0); LYMPHOCYTES % (AUTO) 23 % (12-44); MEAN CORPUSCULAR HEMOGLOBIN 32 pg (25-34); MEAN CORPUSCULAR HGB CONC 33 g/dL (32-36); MEAN CORPUSCULAR VOLUME 99 fL (80-99); MEAN PLATELET VOLUME 10.2 fL (9.0-12.2); MONOCYTES # (AUTO) 0.9 10^3/uL (0.0-1.0); MONOCYTES % (AUTO) 10 % (0-12); NEUTROPHILS # (AUTO) 6.2 10^3/uL (1.8-7.8); NEUTROPHILS % (AUTO) 66 % (42-75); PLATELET COUNT 203 10^3/uL (130-400); WHITE BLOOD COUNT 9.4 10^3/uL (4.3-11.0)
[2022-06-04 12:29] LABS: ALBUMIN 3.7 GM/DL (3.2-4.5); POTASSIUM 3.8 MMOL/L (3.6-5.0)
[2022-06-04 12:30] LABS: CALCIUM 9.3 MG/DL (8.5-10.1)
[2022-06-04 12:31] LABS: INR 2.5 (0.8-1.4); PROTHROMBIN TIME PATIENT 27.6 SEC (12.2-14.7); TOTAL PROTEIN 8.9 GM/DL (6.4-8.2)
[2022-06-04 12:33] LABS: BILIRUBIN,TOTAL 0.5 MG/DL (0.1-1.0)
[2022-06-04 12:35] LABS: CREATININE SERUM 1.56 MG/DL (0.60-1.30)
[2022-06-04 13:42] VITALS: BP 106/72
== END 2022-06-04 13:42 | disposition home or self-care (01) ==
LOC: EDUNIT# 11:27 → ER 11:30
DX: Z48.01 Encounter for change or removal of surgical wound dressing (principal); I48.91 Unspecified atrial fibrillation; D64.9 Anemia, unspecified; Z79.01 Long term (current) use of anticoagulants; Z79.899 Other long term (current) drug therapy; Z87.891 Personal history of nicotine dependence; Z90.49 Acquired absence of other specified parts of digestive tract
CPT/HCPCS: 36415; 80053; 83605; 85025; 85610; 85730; 87040; 87070; 87077; 87186; 87205; 93005

== ENCOUNTER → 2022-06-16 | Outpatient (CLI) | payer MEDICARE, MEDICAID | LOC: WOUNDCARE 09:19 | PROVIDERS: ATTEND Family Medicine | DX: T81.31XA Disruption of external operation (surgical) wound, not elsewhere classified, initial encounter (principal); I89.0 Lymphedema, not elsewhere classified; I25.10 Atherosclerotic heart disease of native coronary artery without angina pectoris; D51.9 Vitamin B12 deficiency anemia, unspecified; E55.9 Vitamin D deficiency, unspecified; N18.30 Chronic kidney disease, stage 3 unspecified; I69.920 Aphasia following unspecified cerebrovascular disease; B96.5 Pseudomonas (aeruginosa) (mallei) (pseudomallei) as the cause of diseases classified elsewhere; Z79.01 Long term (current) use of anticoagulants | CPT/HCPCS: 87070; 87077; 87186; 87205; 97597; 97598; A6197; G0463 ==

== ENCOUNTER → 2022-06-22 | Outpatient (CLI) | payer MEDICARE, MEDICAID | LOC: WOUNDCARE 10:26 | PROVIDERS: ATTEND Family Medicine | DX: T81.31XA Disruption of external operation (surgical) wound, not elsewhere classified, initial encounter (principal); I89.0 Lymphedema, not elsewhere classified; I25.10 Atherosclerotic heart disease of native coronary artery without angina pectoris; D51.9 Vitamin B12 deficiency anemia, unspecified; E55.9 Vitamin D deficiency, unspecified; E11.22 Type 2 diabetes mellitus with diabetic chronic kidney disease; N18.30 Chronic kidney disease, stage 3 unspecified; Z79.01 Long term (current) use of anticoagulants; I69.920 Aphasia following unspecified cerebrovascular disease; Z22.322 Carrier or suspected carrier of Methicillin resistant Staphylococcus aureus; E11.52 Type 2 diabetes mellitus with diabetic peripheral angiopathy with gangrene; I96 Gangrene, not elsewhere classified | CPT/HCPCS: 11042; 11045; G0463 ==

== ENCOUNTER → 2022-06-29 | Outpatient (CLI) | payer MEDICARE, MEDICAID | LOC: WOUNDCARE 10:20 | PROVIDERS: ATTEND Family Medicine | DX: T81.31XA Disruption of external operation (surgical) wound, not elsewhere classified, initial encounter (principal); I89.0 Lymphedema, not elsewhere classified; I25.10 Atherosclerotic heart disease of native coronary artery without angina pectoris; D51.9 Vitamin B12 deficiency anemia, unspecified; E55.9 Vitamin D deficiency, unspecified; N18.30 Chronic kidney disease, stage 3 unspecified; D63.1 Anemia in chronic kidney disease; I69.920 Aphasia following unspecified cerebrovascular disease; B95.62 Methicillin resistant Staphylococcus aureus infection as the cause of diseases classified elsewhere; I96 Gangrene, not elsewhere classified; Z79.01 Long term (current) use of anticoagulants | CPT/HCPCS: 11042; G0463 ==

== ENCOUNTER → 2022-07-06 | Outpatient (CLI) | payer MEDICARE, MEDICAID | LOC: WOUNDCARE 10:23 | PROVIDERS: ATTEND Family Medicine | DX: T81.31XA Disruption of external operation (surgical) wound, not elsewhere classified, initial encounter (principal); I89.0 Lymphedema, not elsewhere classified; I25.10 Atherosclerotic heart disease of native coronary artery without angina pectoris; E55.9 Vitamin D deficiency, unspecified; N18.30 Chronic kidney disease, stage 3 unspecified; Z79.01 Long term (current) use of anticoagulants; D51.9 Vitamin B12 deficiency anemia, unspecified; I69.820 Aphasia following other cerebrovascular disease; I96 Gangrene, not elsewhere classified | CPT/HCPCS: 11042; G0463 ==

== ENCOUNTER → 2022-07-13 | Outpatient (CLI) | payer MEDICARE, MEDICAID | LOC: WOUNDCARE 10:13 | PROVIDERS: ATTEND Family Medicine | DX: T81.31XA Disruption of external operation (surgical) wound, not elsewhere classified, initial encounter (principal); I89.0 Lymphedema, not elsewhere classified; I25.10 Atherosclerotic heart disease of native coronary artery without angina pectoris; D51.9 Vitamin B12 deficiency anemia, unspecified; E55.9 Vitamin D deficiency, unspecified; N18.30 Chronic kidney disease, stage 3 unspecified; Z79.01 Long term (current) use of anticoagulants; I69.920 Aphasia following unspecified cerebrovascular disease; I96 Gangrene, not elsewhere classified | CPT/HCPCS: 11042; G0463 ==

== ENCOUNTER → 2022-07-20 | Outpatient (CLI) | payer MEDICARE, MEDICAID | LOC: WOUNDCARE 10:20 | PROVIDERS: ATTEND Family Medicine | DX: T81.31XA Disruption of external operation (surgical) wound, not elsewhere classified, initial encounter (principal); I89.0 Lymphedema, not elsewhere classified; I25.10 Atherosclerotic heart disease of native coronary artery without angina pectoris; D51.9 Vitamin B12 deficiency anemia, unspecified; N18.30 Chronic kidney disease, stage 3 unspecified; Z79.01 Long term (current) use of anticoagulants; I69.320 Aphasia following cerebral infarction; I96 Gangrene, not elsewhere classified | CPT/HCPCS: 11042; G0463 ==

== ENCOUNTER → 2022-07-27 | Outpatient (CLI) | payer MEDICARE, MEDICAID | LOC: WOUNDCARE 14:42 | PROVIDERS: ATTEND Family Medicine | DX: T81.31XA Disruption of external operation (surgical) wound, not elsewhere classified, initial encounter (principal); I96 Gangrene, not elsewhere classified; I69.920 Aphasia following unspecified cerebrovascular disease; I25.10 Atherosclerotic heart disease of native coronary artery without angina pectoris; I89.0 Lymphedema, not elsewhere classified; D51.9 Vitamin B12 deficiency anemia, unspecified; E55.9 Vitamin D deficiency, unspecified; N18.30 Chronic kidney disease, stage 3 unspecified; Z79.01 Long term (current) use of anticoagulants | CPT/HCPCS: 11042; G0463 ==

== ENCOUNTER → 2022-08-03 | Outpatient (CLI) | payer MEDICARE, MEDICAID | LOC: WOUNDCARE 10:21 | PROVIDERS: ATTEND Family Medicine | DX: T81.31XA Disruption of external operation (surgical) wound, not elsewhere classified, initial encounter (principal); I96 Gangrene, not elsewhere classified; I89.0 Lymphedema, not elsewhere classified; I25.10 Atherosclerotic heart disease of native coronary artery without angina pectoris; D51.9 Vitamin B12 deficiency anemia, unspecified; E55.9 Vitamin D deficiency, unspecified; N18.30 Chronic kidney disease, stage 3 unspecified; I69.920 Aphasia following unspecified cerebrovascular disease; Z79.01 Long term (current) use of anticoagulants | CPT/HCPCS: 11042; G0463 ==

== ENCOUNTER → 2022-08-10 | Outpatient (CLI) | payer MEDICARE, MEDICAID | LOC: WOUNDCARE 10:21 | PROVIDERS: ATTEND Family Medicine | DX: T81.31XA Disruption of external operation (surgical) wound, not elsewhere classified, initial encounter (principal); I89.0 Lymphedema, not elsewhere classified; I25.10 Atherosclerotic heart disease of native coronary artery without angina pectoris; D51.9 Vitamin B12 deficiency anemia, unspecified; E55.9 Vitamin D deficiency, unspecified; N18.30 Chronic kidney disease, stage 3 unspecified; Z79.01 Long term (current) use of anticoagulants; I69.820 Aphasia following other cerebrovascular disease; I96 Gangrene, not elsewhere classified | CPT/HCPCS: 11042; A6021; A6212; G0463 ==

== ENCOUNTER → 2022-08-17 | Outpatient (CLI) | payer MEDICARE, MEDICAID | LOC: WOUNDCARE 10:15 | PROVIDERS: ATTEND Family Medicine | DX: T81.31XA Disruption of external operation (surgical) wound, not elsewhere classified, initial encounter (principal); I89.0 Lymphedema, not elsewhere classified; I25.10 Atherosclerotic heart disease of native coronary artery without angina pectoris; D51.9 Vitamin B12 deficiency anemia, unspecified; E55.9 Vitamin D deficiency, unspecified; N18.30 Chronic kidney disease, stage 3 unspecified; Z79.01 Long term (current) use of anticoagulants; I69.920 Aphasia following unspecified cerebrovascular disease | CPT/HCPCS: 99213 ==

== ENCOUNTER 2022-08-20 17:49 | Inpatient (IN) | payer MEDICARE, MEDICAID ==
[~2022-08-20] VITALS: Ht 154 cm; Wt 63.8 kg
[2022-08-20] MEDS ORDERED: NS IV 1000 ML 1,000 ML IV SCH (18:00)
[2022-08-20] MEDS ORDERED: LIDOCAINE UROJET 2% GEL 10 ML PKG TOP ONE (18:00)
[2022-08-20] MEDS ORDERED: ACETAMINOPHEN 500 MG TAB (TYLENOL) PO PRN (18:00)
[2022-08-20] MEDS ORDERED: RT-ALBUTEROL/IPRATROPIUM 3 ML (DUONEB) VIAL INH ONE (18:00)
[2022-08-20] MEDS ORDERED: CEFEPIME INJECTION 1,000 MG in NS (IVPB) 50 ML IV ONE (18:00)
--- NOTE | 2022-08-20 18:10 | ED General ---
General Chief Complaint: Respiratory Problems Stated Complaint: FEVER Nursing Triage Note: PT PRESSENTS TO ED VIA EMS FROM [facility] WITH COMPLAINTS OF FEVER, COUGH, CHEST CONGESTION. Source of Information: Patient (POOR HISTORIAN, UNABLE TO ANSWER MOST QUESTIONS), Prison Records History of Present Illness Date Seen by Provider: August 20, 2022 Time Seen by Provider: 17:50 Initial Comments PT ARRIVES VIA EMS FROM [facility] PT HAS BEEN SICK SINCE MONDAY WITH FEVER, COUGH AND CONGESTION NO OTHER INFORMATION IS KNOWN AT THIS TIME PT ANSWERS A FEW QUESTIONS WITH "I DON'T KNOW" SOME QUESTIONS SHE SIMPLY DOES NOT GIVE ANY REPLY ONCE WHEN ASKED IF HER CHEST HURT, SHE BRIEFLY SHAKES HER HEAD NO UNABLE TO OBTAIN ANY OTHER INFORMATION THAN THAT PER OLD RECORDS, 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 EMS REPORT PT WAS HYPOXIC IN THE 80'S ON THEIR ARRIVAL O2 SATS IN MID 70'S ON O2 AT 5L/NC ON ARRIVAL. PT IS DNR PCP: DR. KINNEY Allergies and Home Medications Allergies Coded Allergies: Penicillins (Verified Allergy, Unknown, 06/02/22) codeine (Verified Adverse Reaction, Unknown, NAUSEA, 06/02/22) Patient Home Medication List Home Medication List Reviewed: Yes Apixaban (Eliquis) Unknown Strength Tablet, Unknown Dose PO BID, (Reported) Entered as Reported by: MICAH SMITH on 06/02/22 1319 Atorvastatin Calcium (Atorvastatin Calcium) 10 Mg Tablet, 10 MG PO HS, (Reported) Entered as Reported by: EVY ROBLERO on 12/06/16944 Cholecalciferol (Vitamin D3) (D3-5000) 125 Mcg (5000 Unit) Capsule, 125 MCG PO WEEK, (Reported) Entered as Reported by: Sosa Tolbert on 05/31/22918 Colestipol HCl (Colestipol HCl) 1 Gram Tablet, 1 GM PO HS, (Reported) Entered as Reported by: Sosa Tolbert on 05/31/22918 Digoxin (Digoxin) 125 Mcg Tablet, 125 MCG PO DAILY, (Reported) Entered as Reported by: EVY ROBLERO on 12/06/16944 Diltiazem HCl (Cartia Xt) 120 Mg Cap.er.24h, 120 MG PO HS, (Reported) Entered as Reported by: EVY ROBLERO on 12/06/16947 Famotidine (Acid Domestic Cleaner (FAMOTIDINE)) 10 Mg Tablet, 10 MG PO BID, (Reported) Entered as Reported by: Sosa Tolbert on 05/31/22918 Furosemide (Furosemide) 20 Mg Tablet, 20 MG PO DAILY, (Reported) Entered as Reported by: Sosa Tolbert on 05/31/22918 Furosemide (Furosemide) 20 Mg Tablet, 20 MG PO NOON PRN for SBP>115, (Reported) Entered as Reported by: Sosa Tolbert on 05/31/22918 Levothyroxine Sodium (Levothyroxine Sodium) 88 Mcg Tablet, 88 MCG PO DAILY, (Reported) Entered as Reported by: EVY ROBLERO on 12/06/16944 Mecobalamin (B12 Active) 1,000 Mcg Tab.chew, 500 MCG PO DAILY, (Reported) Entered as Reported by: Sosa Tolbert on 05/31/22918 Metoprolol Succinate (Metoprolol Succinate) 25 Mg Tab.er.24h, 12.5 MG PO DAILY, (Reported) Entered as Reported by: EVY ROBLERO on 12/06/16947 Nystatin (Nystatin) 100,000 Unit/Gram Cream..g., 15 GM TP BID, (Reported) Entered as Reported by: Sosa Tolbert on 05/31/22918 Nystatin (Nystatin) 100,000 Unit/Gram Powder, 15 GM TP BID, (Reported) Entered as Reported by: Sosa Tolbert on 05/31/22918 Rivaroxaban (Xarelto Tablet) 20 Mg Tablet, 20 MG PO HS, (Reported) Entered as Reported by: EVY ROBLERO on 12/06/16944 [Lactinex] , 1 TAB PO BID, (Reported) Entered as Reported by: Sosa Tolbert on 05/31/22918 Review of Systems Review of Systems Constitutional: see HPI Respiratory: see HPI Past Hoxrsfj-Ymekho-Oduxqa Hx Patient Social History Tobacco Use?: No Substance use?: No Alcohol Use?: No Pt feels they are or have been: No Immunizations Up To Date Tetanus Booster (TDap): Unknown First/Initial COVID19 Vaccinat: X4 Second COVID19 Vaccination Sonu: X4 Third COVID19 Vaccination Date: X4 Seasonal Allergies Seasonal Allergies: Yes Past Medical History Surgery/Hospitalization HX: COPD, CHF, DYSPHASIA AND APHASIA R/T STROKE Surgeries: Yes (SKIN CANCER REMOVED LEFT LOWER LEG; COLONOSCOPY) Hysterectomy Respiratory: Yes COPD Currently Using CPAP: No Currently Using BIPAP: No Cardiac: Yes (CHF) Atrial Fibrillation, Chronic Edema/Swelling, Hypertension Neurological: Yes (APHASIA AND DYSPHAGIA) Dementia, Stroke Reproductive Disorders: Yes INSIDE METER TESTER History: Hysterectomy Sexually Transmitted Disease: No Genitourinary: No Gastrointestinal: Yes Gastroesophageal Reflux, Diverticulosis, Chronic Diarrhea Musculoskeletal: Yes Osteoporosis, Rheumatoid Arthritis Endocrine: No HEENT: Yes Cataract Loss of Vision: Right Hearing Impairment: Hard of Hearing Cancer: Yes Skin Did You Recieve Any Treatments: Yes What Type of Treatment Did You: Surgical Intervention Psychosocial: No Integumentary: No Blood Disorders: No Adverse Reaction/Blood Tranf: No Physical Exam Vital Signs Vital Signs - First Documented 08/20/22 08/20/22 08/20/22 17:58 17:59 18:15 Temp 36.9 Pulse 98 Resp 30 Pulse Ox 92 O2 Delivery OxyMask O2 Flow Rate 10.00 FiO2 60 Capillary Refill : Height, Weight, BMI Height: 5'1.00" Weight: 154lbs. 5.0oz. 69.128253cf; 24.00 BMI Method: General Appearance: WD/WN, Mild Distress (DYSPNEIC ON ARRIVAL WITH AUDIBLE RHON CHI / UPPER AIRWAY NOISE), Other (LETHARGIC; DYSPNEIC) HEENT: PERRL/EOMI Neck: JVD Respiratory: Accessory Muscle Use, Decreased Breath Sounds, Rales, Respiratory Distress (MILD), Rhonci, Other (AUDIBLE RHONCHI, DECREASED AERATION IN ALL LUNG DIAZ, FAINT EXPIRATORY WHEEZING ON RIGHT) Cardiovascular: Irregularly Irregular, JVD, Tachycardia Gastrointestinal: Other (LARGE VENTRAL HERNIA THAT INVOLVES MOST OF ABDOMEN) Genital/Rectal: Other (RIGHT LABIA WITH WHAT APPEARS TO BE A BARTHOLIN'S CYST, OVERLYING SKIN IS NOT INFLAMED, THERE IS NO POINTING OR DRAINAGE. THE AREA DOES NOT APPEAR TO BE TENDER ON PALPATION. ) Back: Other (KYPHOSIS) Extremity: Normal Capillary Refill, Pedal Edema (4+ EDEMA WITH CHRONIC VENOUS STASIS CHANGES, GOOD CAPILLARY REFILL. NO OVERT CELLULITIS) Neurologic/Psychiatric: Alert, Other (MENTATION AND VERBAL RESPONSE NOTED. SHE IS NOT FOLLOWING COMMANDS. MENTATION IS NORMAL FOR PT, PER DAUGHTER. RESTING HAND TREMORS. ) Skin: Normal Color, Warm/Dry Focused Exam Sepsis Stage: Sepsis Possible Source: Pulmonary Lactate Level Time of Focused Exam: 18:50 Respiratory: Other (INCREASED AERATION, DECREASED RHONCHI AND WHEEZING IS RESOLVED) Cardiovascular: Irregularly Irregular, Tachycardia (110'S) Capillary Refill: Less Than 3 Seconds Skin: normal color, warm/dry Lactic Acid Level Laboratory Tests Test 08/20/22 01:52 08/20/22 18:00 08/20/22 20:18 Lactic Acid Level 2.62 MMOL/L (0.50-2.00) *H 2.88 MMOL/L (0.50-2.00) *H 2.66 MMOL/L (0.50-2.00) *H Within 3hrs of presentation: Admin fluids (BUT NOT BOLUSED DUE TO CHF/FLUID OVERLOAD), Admin ABX, Blood cultures prior to ABX's, Focus exam, Lactate level Progress/Results/Core Measures Suspected Sepsis SIRS Temperature: Pulse: 98 Respiratory Rate: 30 Laboratory Tests 08/20/22 18:00: White Blood Count 13.0H Blood Pressure / Mean: Laboratory Tests 08/20/22 18:00: Creatinine 2.10H, INR Comment 1.8H, Platelet Count 226, Total Bilirubin 0.4 Results/Orders Lab Results Laboratory Tests Test 08/20/22 01:52 08/20/22 18:00 08/20/22 18:08 08/20/22 18:30 Range/Units Lactic Acid Level 2.62 *H 2.88 *H 0.50-2.00 MMOL/L White Blood Count 13.0 H 4.3-11.0 10^3/uL Red Blood Count 3.02 L 3.80-5.11 10^6/uL Hemoglobin 9.6 L 11.5-16.0 g/dL Hematocrit 30 L 35-52 % Mean Corpuscular Volume 99 80-99 fL Mean Corpuscular Hemoglobin 32 25-34 pg Mean Corpuscular Hemoglobin Concent 32 32-36 g/dL Red Cell Distribution Width 15.0 H 10.0-14.5 % Platelet Count 226 130-400 10^3/uL Mean Platelet Volume 9.8 9.0-12.2 fL Immature Granulocyte % (Auto) 1 % Neutrophils (%) (Auto) 77 H 42-75 % Lymphocytes (%) (Auto) 15 12-44 % Monocytes (%) (Auto) 7 0-12 % Eosinophils (%) (Auto) 0 0-10 % Basophils (%) (Auto) 0 0-10 % Neutrophils # (Auto) 10.1 H 1.8-7.8 10^3/uL Lymphocytes # (Auto) 1.9 1.0-4.0 10^3/uL Monocytes # (Auto) 0.9 0.0-1.0 10^3/uL Eosinophils # (Auto) 0.0 0.0-0.3 10^3/uL Basophils # (Auto) 0.0 0.0-0.1 10^3/uL Immature Granulocyte # (Auto) 0.1 0.0-0.1 10^3/uL Prothrombin Time 21.0 H 12.2-14.7 SEC INR Comment 1.8 H 0.8-1.4 Activated Partial Thromboplast Time 33 24-35 SEC Sodium Level 141 135-145 MMOL/L Potassium Level 4.1 3.6-5.0 MMOL/L Chloride Level 106 98-107 MMOL/L Carbon Dioxide Level 22 21-32 MMOL/L Anion Gap 13 5-14 MMOL/L Blood Urea Nitrogen 25 H 7-18 MG/DL Creatinine 2.10 H 0.60-1.30 MG/DL Estimat Glomerular Filtration Rate 22 BUN/Creatinine Ratio 12 Glucose Level 184 H 70-105 MG/DL Calcium Level 9.3 8.5-10.1 MG/DL Corrected Calcium 9.8 8.5-10.1 MG/DL Magnesium Level 1.7 1.6-2.4 MG/DL Total Bilirubin 0.4 0.1-1.0 MG/DL Aspartate Amino Transf (AST/SGOT) 13 5-34 U/L Alanine Aminotransferase (ALT/SGPT) 9 0-55 U/L Alkaline Phosphatase 93 40-136 U/L Total Creatine Kinase 37 29-168 U/L Creatine Kinase MB 1.4 <6.6 NG/ML Myoglobin 82.3 10.0-92.0 NG/ML Troponin I < 0.028 <0.028 NG/ML C-Reactive Protein High Sensitivity 0.91 H 0.00-0.50 MG/DL B-Type Natriuretic Peptide 363.4 H <100.0 PG/ML Total Protein 8.9 H 6.4-8.2 GM/DL Albumin 3.4 3.2-4.5 GM/DL TSH [place] Testing 2.37 0.35-4.94 UIU/ML Digoxin Level 1.14 0.80-2.00 NG/ML Blood Gas Puncture Site LEFT WRIST Blood Gas Patient Temperature 36.8 Arterial Blood pH 7.38 7.37-7.43 Arterial Blood Partial Pressure CO2 45 35-45 MMHG Arterial Blood Partial Pressure O2 44 L 79-93 MMHG Arterial Blood HCO3 26 23-27 MMOL/L Arterial Blood Total CO2 27.7 21.0-31.0 MMOL/L Arterial Blood Oxygen Saturation 79 L 94-100 % Arterial Blood Base Excess 1.7 -2.5-2.5 MMOL/L Miguel Test YES-POS Blood Gas Ventilator Setting NO Blood Gas Inspired Oxygen 60% Influenza Type A (RT-PCR) Not Detected Not Detecte Influenza Type B (RT-PCR) Not Detected Not Detecte SARS-CoV-2 RNA (RT-PCR) Not Detected Not Detecte Urine Color YELLOW Urine Clarity CLOUDY Urine pH 5.5 5-9 Urine Specific [place] 1.015 L 1.016-1.022 Urine Protein 1+ H NEGATIVE Urine Glucose (UA) NEGATIVE NEGATIVE Urine Ketones NEGATIVE NEGATIVE Urine Nitrite POSITIVE H NEGATIVE Urine Bilirubin NEGATIVE NEGATIVE Urine Urobilinogen 0.2 < = 1.0 MG/DL Urine Leukocyte Esterase 3+ H NEGATIVE Urine RBC (Auto) 1+ H NEGATIVE Urine RBC 0-2 /HPF Urine WBC >100 H /HPF Urine Crystals NONE /LPF Urine Bacteria LARGE H /HPF Urine Casts NONE /LPF Urine Mucus SMALL H /LPF Urine Culture Indicated YES Test 08/20/22 18:52 08/20/22 20:18 Range/Units Erythrocyte Sedimentation Rate 85 H 0-30 MM/HR Lactic Acid Level 2.66 *H 0.50-2.00 MMOL/L My Orders Orders - CARTER HDEZ DO Ed Iv/Invasive Line Start (08/20/22 17:51) Monitor-Rhythm Ecg Trace Only (08/20/22 17:51) Chest 1 View, Ap/Pa Only (08/20/22 17:51) Magnesium (08/20/22 17:51) Covid 19 Inhouse Test (08/20/22 17:51) Cbc With Automated Diff (08/20/22 17:51) Comprehensive Metabolic Panel (08/20/22 17:51) Blood Culture (08/20/22 17:51) Urinalysis (08/20/22 17:51) Protime With Inr (08/20/22 17:51) Partial Thromboplastin Time (08/20/22 17:51) Acetaminophen Tablet (Tylenol Tablet) (08/20/22 18:00) Ed Iv/Invasive Line Start (08/20/22 17:51) Ed Iv/Invasive Line Start (08/20/22 17:51) O2 (08/20/22 17:51) Remove Rings In Anticipation O (08/20/22 17:51) Lactic Acid Analyzer (08/20/22 17:51) Cefepime Injection (Maxipime Injection) (08/20/22 18:00) Lidocaine 2% (Urojet) (Xylocaine Urojet) (08/20/22 18:00) Influenza A And B By Pcr (08/20/22 17:51) Isolation Central Supply Req (08/20/22 17:51) Ed Iv/Invasive Line Start (08/20/22 17:51) Ns Iv 1000 Ml (Sodium Chloride 0.9%) (08/20/22 18:00) Albuterol/Ipra Inhalation Soln (Duoneb I (08/20/22 18:00) Rt Request For Service (08/20/22 17:57) Dexamethasone Injection (Decadron Inje (08/20/22 18:00) Svn Small Volume Nebulizer (08/20/22 17:57) Arterial Blood Gas (08/20/22 17:57) Bnp Yates (08/20/22 17:57) Creatine Kinase (08/20/22 17:57) Creatine Kinase Mb (08/20/22 17:57) Hs C Reactive Protein (08/20/22 17:57) Thyroid Analyzer (08/20/22 17:57) Myoglobin Serum (08/20/22 17:57) Troponin I Vera (08/20/22 17:57) Digoxin (08/20/22 17:59) Erythrocyte Sedimentation Rate (08/20/22 18:23) Furosemide Injection (Lasix Injection) (08/20/22 18:45) Ekg Tracing (08/20/22 18:42) Urine Culture (08/20/22 18:30) Ed Admission (Communication) (08/20/22 18:58) Medications Given in ED Vital Signs/I&O 08/20/22 08/20/22 08/20/22 08/20/22 17:58 17:59 18:15 18:18 Temp 36.9 Pulse 98 98 Resp 30 32 B/P (MAP) Pulse Ox 92 97 O2 Delivery OxyMask OxyMask NIV Bilevel O2 Flow Rate 10.00 10.00 60.00 FiO2 60 08/21/22 00:00 Intake Total 1000 ml Balance 1000 ml Capillary Refill : Progress Note : Progress Note PPE WORN COVID AND FLU TESTING DONE SEPSIS PROTOCOL INITIATED LAB INCLUDING CBC, CMP, LACTIC ACID, BLOOD CULTURES, UA, TROPONIN, BNP, PT/PTT ORDERED, IN ADDITION TO EKG AND CXR. PERTINENT LAB FINDINGS: -WBC 13.0, HGB 9.6 -BUN / CR / GFR 25/ 2.1 / 22 -GLUCOSE 184 -LACTIC ACID 2.62 -UA WITH > 100 WBC, LARGE BACTERIA, 3+ LEUKOCYTES, + NITRITES TROPONIN IS NEGATIVE, BNP ELEVATED AT 363--BUT PT WITH ELEVATED CREATININE. EKG SHOWS RATE CONTROLLED ATRIAL FIB ( PT HAS CHRONIC ATRIAL FIB ) . NO STEMI. CXR SHOWS LIKELY MIXED INFILTRATES ALONG WITH SOME EDEMA/CHF GIVEN: -IV FLUIDS--GENTLY DUE TO PRESENCE OF CHF/FLUID OVERLOAD -DECADRON IV -CEFEPIME -NEB TREATMENTS -TYLENOL -LASIX O2 SATS IN MID 70'S ON O2 AT 5L/NC ON ARRIVAL PLACED ON OXIMASK AT 10 L--SATS UP TO THE 80'S PLACED ON BIPAP SHORTLY AFTER ARRIVAL, SATS UP TO 96-98-100%, AND PT IS TOLERA TING THE DEVICE AND NOT TRYING TO TAKE IT OFF, ETC. PT IS MORE ALERT, HOLDING HEAD UP, AND APPEARS LESS LETHARGIC, AFTER BEING PLACED ON BIPAP DAUGHTER IS LATER IN ROOM WITH PT, AND SHE AGREES THAT PT LOOKS MUCH BETTER AND MORE ALERT THAN SHE DID PRIOR TO ARRIVAL, AND IS AT NORMAL BASELINE MENTALLY. DAUGHTER STATES THAT PT HAD LAST APPOINTMENT WITH WOUND CARE ( FOR WOUND TO LEFT LOWER LEG / [place] AREA ) ON MONDAY, AND TEMP WAS 99 AT THAT VISIT. DAUGHTER STATES THAT PT WAS RELEASED FROM WOUND CARE AT THAT VISIT, THE WOUND APPEARS TO BE COMPLETELY HEALED NOW. DISCUSSED WITH DAUGHTER PT'S VERY FRAGILE CONDITION DUE TO MULTIPLE CO- MORBIDITIES DAUGHTER VERIFIED THAT PT IS DNR / DNI DISCUSSED TEST RESULTS, NEED FOR ADMIT, AND DAUGHTER IS AGREEABLE TO PLAN. REVIEWED PRISON RECORDS, PRIOR VISITS INCLUDING ER VISITS, ADMITS/H&P'S/CONSULTS/DISCHARGE SUMMARIES, TESTS/ PROCEDURES ECG Initial ECG Impression Date: August 20, 2022 Initial ECG Impression Time: 18:46 Initial ECG Rate: 108 Initial ECG Rhythm: A Fib/Flutter Initial ECG Impression: Nonspecific Changes, Atrial Fibrillation w/RVR Initial ECG Comparisson: Unchanged Diagnostic Imaging Comments CXR--PER RADIOLOGIST REPORT AT 1829 COMPARISON: Study of 02/11/2021. FINDINGS: There is generalized cardiomegaly and pulmonary venous congestion. There is probable mild perihilar edema and/or pneumonitis with blunting of the left costophrenic sulcus. No pneumothorax is identified. IMPRESSION: Cardiomegaly with probable mild perihilar edema and/or pneumonitis. There is associated mild left pleural fluid or thickening. Reviewed: Reviewed by Me Departure Communication (Admissions) 1851--SPOKE WITH DR. JHA, HOSPITALIST. ACCEPTS PT FOR ADMIT. HE WILL DO ADMIT ORDERS Impression Primary Impression: Acute respiratory failure with hypoxia Additional Impressions: Sepsis Acute CHF Acute kidney injury superimposed on chronic kidney disease Dementia UTI (urinary tract infection) Disposition: ADMITTED INPATIENT Condition: Improved Admissions Decision to Admit Reason: Admit from ER (General) Decision to Admit/Date: August 20, 2022 Time/Decision to Admit Time: 18:55 Departure-Patient Inst. Referrals: CARTER KINNEY MD (PCP/Family) Primary Care Physician CARTER HDEZ DO August 20, 2022 18:10
[2022-08-20 18:11] LABS: BASOPHILS % (AUTO) 0 % (0-10); EOSINOPHILS % (AUTO) 0 % (0-10); HEMATOCRIT 30 % (35-52); HEMOGLOBIN 9.6 g/dL (11.5-16.0); LYMPHOCYTES # (AUTO) 1.9 10^3/uL (1.0-4.0); LYMPHOCYTES % (AUTO) 15 % (12-44); MEAN CORPUSCULAR HEMOGLOBIN 32 pg (25-34); MEAN CORPUSCULAR HGB CONC 32 g/dL (32-36); MEAN CORPUSCULAR VOLUME 99 fL (80-99); MEAN PLATELET VOLUME 9.8 fL (9.0-12.2); MONOCYTES # (AUTO) 0.9 10^3/uL (0.0-1.0); MONOCYTES % (AUTO) 7 % (0-12); NEUTROPHILS # (AUTO) 10.1 10^3/uL (1.8-7.8); NEUTROPHILS % (AUTO) 77 % (42-75); PLATELET COUNT 226 10^3/uL (130-400)
[2022-08-20 18:18] VITALS: BP 114/79
[2022-08-20 18:23] LABS: ALBUMIN 3.4 GM/DL (3.2-4.5); CHLORIDE 106 MMOL/L (98-107); POTASSIUM 4.1 MMOL/L (3.6-5.0); SODIUM 141 MMOL/L (135-145)
[2022-08-20 18:24] LABS: INR 1.8 (0.8-1.4)
[2022-08-20 18:25] LABS: CALCIUM 9.3 MG/DL (8.5-10.1)
--- NOTE | 2022-08-20 18:25 | Diagnostic Imaging Report ---
INDICATION: Fever. EXAMINATION: AP view of the chest was obtained. COMPARISON: Study of 02/11/2021. FINDINGS: There is generalized cardiomegaly and pulmonary venous congestion. There is probable mild perihilar edema and/or pneumonitis with blunting of the left costophrenic sulcus. No pneumothorax is identified. IMPRESSION: Cardiomegaly with probable mild perihilar edema and/or pneumonitis. There is associated mild left pleural fluid or thickening. Dictated by: Dictated on workstation # [id number]
[2022-08-20 18:26] LABS: GLUCOSE 184 MG/DL (70-105); TOTAL PROTEIN 8.9 GM/DL (6.4-8.2)
[2022-08-20 18:27] LABS: CARBON DIOXIDE 22 MMOL/L (21-32)
[2022-08-20 18:27] LABS: ABG BASE EXCESS 1.7 MMOL/L (-2.5-2.5); ABG OXYGEN SATURATION 79 % (94-100); ABG PCO2 45 MMHG (35-45); ABG PH 7.38 (7.37-7.43); ABG PO2 44 MMHG (79-93); ABG TCO2 27.7 MMOL/L (21.0-31.0); ALLENS TEST YES-POS; INSPIRED O2 60%; PATIENT TEMP 36.8; VENTILATOR NO
[2022-08-20 18:28] LABS: BILIRUBIN,TOTAL 0.4 MG/DL (0.1-1.0)
[2022-08-20 18:29] LABS: ALKALINE PHOSPHATASE 93 U/L (40-136)
[2022-08-20 18:30] LABS: GFR ESTIMATED 22
[2022-08-20 18:31] LABS: BUN/CREATININE RATIO 12
[2022-08-20 18:32] LABS: ALANINE AMINOTRANSFERASE 9 U/L (0-55); MAGNESIUM 1.7 MG/DL (1.6-2.4)
[2022-08-20 18:33] LABS: CREATINE KINASE 37 U/L (29-168)
[2022-08-20 18:35] LABS: BILIRUBIN,URINE NEGATIVE (NEGATIVE); CLARITY,URINE CLOUDY; COLOR,URINE YELLOW; GLUCOSE, URINE (UA) NEGATIVE (NEGATIVE); KETONES,URINE NEGATIVE (NEGATIVE); LEUKOCYTE ESTERASE ,URINE 3+ (NEGATIVE); NITRITE,URINE POSITIVE (NEGATIVE); PH,URINE 5.5 (5-9); PROTEIN,URINE 1+ (NEGATIVE)
[2022-08-20 18:40] LABS: CREATINE KINASE MB 1.4 NG/ML (<6.6)
[2022-08-20] MEDS ORDERED: FUROSEMIDE 40 MG/4 ML INJ (LASIX) IVP ONE (18:45)
[2022-08-20 18:48] LABS: RBC,URINE 0-2 /HPF
[2022-08-20 18:49] LABS: BACTERIA,URINE LARGE /HPF; WBC,URINE >100 /HPF
[2022-08-20 18:52] LABS: TSH (THYROID ANALYZER) 2.37 UIU/ML (0.35-4.94)
[2022-08-20] MEDS ORDERED: ONDANSETRON 4 MG (ZOFRAN) ORAL DISSOLVE TAB PO PRN (20:30)
[2022-08-20] MEDS ORDERED: BISACODYL 10 MG SUPP (DULCOLAX) PR PRN (20:30)
[2022-08-20] MEDS ORDERED: ACETAMINOPHEN 325 MG TABLET PO PRN (20:30)
[2022-08-20] MEDS ORDERED: MILK OF MAGNESIA 400 MG/5 ML 30 ML UDC PO PRN (20:30)
[2022-08-20] MEDS ORDERED: MELATONIN 3 MG TABLET PO PRN (20:30)
[2022-08-20] MEDS ORDERED: polyethylene glycoL POWDER 17 GM (MIRALAX) PACK PO PRN (20:30)
[2022-08-20] MEDS ORDERED: ONDANSETRON 4 MG/2 ML (SDV) Z0FRAN IV PRN (20:30)
[2022-08-20] MEDS ORDERED: CALCIUM CARBONATE 500 MG (TUMS) TAB.CHEW PO PRN (20:30)
[2022-08-20] MEDS ORDERED: ANTACID SUSP 30 ML UDC (MYLANTA) PO PRN (20:30)
[2022-08-20] MEDS ORDERED: LACTULOSE SYRUP 10GM/15ML (ENULOSE) 30ML UDC PO PRN (20:30)
[2022-08-20 20:45] VITALS: BP 144/80
[2022-08-20 21:00] VITALS: BP 129/70
[2022-08-20] MEDS: SENNOSIDES 8.6 MG (SENOKOT) TAB PO SCH (21:00)
[2022-08-20] MEDS: AtorvaSTATin TABLET 10 MG TABLET PO SCH (21:00)
[2022-08-20] MEDS: DOCUSATE SODIUM 100 MG (COLACE) CAP PO SCH (21:00)
[2022-08-20 21:15] VITALS: BP 122/77
[2022-08-20] MEDS ORDERED: RT-ALBUTEROL/IPRATROPIUM 3 ML (DUONEB) VIAL INH PRN (21:30)
[2022-08-20] MEDS ORDERED: inSUlin ASPART (NovoLOG) 1 UNIT/0.01 ML (CHARGE PER UNIT) SC SCH (21:45)
--- NOTE | 2022-08-20 21:57 | Tele-ICU Progress Note ---
Progress Note 81F with CHF, COPD, aphasia, dysphagia, afib, CVA, dementia admitted with Sent from [facility]ter for fever, cough, congestion since monday. Patient is a poor historian, no additional info available. Per EMS, SpO2 in the 80s. On arrival to ED was 70s on 5L NC. Improved to 80s on 10L and 98-100% on BiPap. Also given gentle IVF, decadron, cefepime, nebs, APAP, BiPap and lasix. She was more alert and interactive after BiPap initiated. A/P: - ARF: hypoxic resp insufficiency, improved with NIPPV support. No hypercapnia on ABG. Some questionable perihilar fullness on CXR, but probably similar to last CXR when taking rotational artifact into account (by my interpretation). Reported history of CHF but only evidence of acute exacerbation is nonspecific LE edema. No discrete pna, but with upper resp symptoms. PE less likely given home xarelto, but would still consider given primary hypoxia without clear etiology. Will treat for sepsis and pneumonia vs tracheobronchitis, but even if present hypoxia would be out of proportion to infiltrate. V/Q in AM. - sepsis: meets criteria for sepsis without clear source. Broad spectrum abx initiated, cultures pending. Trend lactic. Add azithro for atypicals. - [place]: creatinine at 2.1, up from recent baseline 1.5. Continue gentle hydration. Monitor renal function. Avoid nephrotoxins. - hyperglycemia: not fasting, unsure whether before or after steroids. 184 on BMP. Will order low dose sliding scale. Patient assessed via real time audiovisual communication system CCT 20 min Focused Exam Lactate Level 08/20/22 18:00: Lactic Acid Level 2.88*H 08/20/22 20:18: Lactic Acid Level 2.66*H Height, Weight, BMI Height: 5'1.00" Weight: 154lbs. 5.0oz. 69.480279je; 28.41 BMI Method: Time of Focused Exam: 18:50 Lactic Acid Level Laboratory Tests Test 08/20/22 18:00 08/20/22 20:18 Lactic Acid Level 2.88 MMOL/L (0.50-2.00) *H 2.66 MMOL/L (0.50-2.00) *H KARIN ARRINGTON MD August 20, 2022 21:57
[2022-08-20] MEDS: RT-ALBUTEROL/IPRATROPIUM 3 ML (DUONEB) VIAL INH SCH (22:23)
[2022-08-20] MEDS: cefTRIAXone IV/IM 1,000 MG in NS (IVPB) 50 ML IV SCH (23:44)
[2022-08-21] MEDS: AZITHROMYCIN INJECTION 500 MG in NS (IVPB) 250 ML IV SCH ×2 (00:32→21:51)
[2022-08-21] MEDS: inSUlin ASPART (NovoLOG) 1 UNIT/0.01 ML (CHARGE PER UNIT) SC SCH ×4 (00:39→17:40)
[2022-08-21] MEDS: RT-ALBUTEROL/IPRATROPIUM 3 ML (DUONEB) VIAL INH SCH ×6 (02:16→21:19)
[2022-08-21 04:07] LABS: BASOPHILS % (AUTO) 0 % (0-10); EOSINOPHILS % (AUTO) 0 % (0-10); HEMATOCRIT 28 % (35-52); HEMOGLOBIN 8.9 g/dL (11.5-16.0); LYMPHOCYTES # (AUTO) 0.9 10^3/uL (1.0-4.0); LYMPHOCYTES % (AUTO) 4 % (12-44); MEAN CORPUSCULAR HEMOGLOBIN 31 pg (25-34); MEAN CORPUSCULAR HGB CONC 32 g/dL (32-36); MEAN CORPUSCULAR VOLUME 98 fL (80-99); MEAN PLATELET VOLUME 9.9 fL (9.0-12.2); MONOCYTES # (AUTO) 1.1 10^3/uL (0.0-1.0); MONOCYTES % (AUTO) 6 % (0-12); NEUTROPHILS # (AUTO) 17.3 10^3/uL (1.8-7.8); NEUTROPHILS % (AUTO) 90 % (42-75); PLATELET COUNT 202 10^3/uL (130-400); WHITE BLOOD COUNT 19.4 10^3/uL (4.3-11.0)
[2022-08-21 04:14] LABS: ALBUMIN 3.1 GM/DL (3.2-4.5)
[2022-08-21 04:15] LABS: POTASSIUM 4.1 MMOL/L (3.6-5.0)
[2022-08-21 04:16] LABS: CALCIUM 8.7 MG/DL (8.5-10.1)
[2022-08-21 04:17] LABS: TOTAL PROTEIN 7.8 GM/DL (6.4-8.2)
[2022-08-21 04:19] LABS: BILIRUBIN,TOTAL 0.3 MG/DL (0.1-1.0)
[2022-08-21 04:21] LABS: CREATININE SERUM 2.03 MG/DL (0.60-1.30)
[2022-08-21 04:36] LABS: LYMPHOCYTES % (MANUAL) 6 %; MONOCYTES % (MANUAL) 4 %; NEUTROPHILS % (MANUAL) 90 %; RBC MORPH NORMAL
[2022-08-21] MEDS: MAGNESIUM 1 GM/100 ML IVPB 100 ML IV SCH ×5 (05:48→08:15)
[2022-08-21] MEDS: POTASSIUM CL 10MEQ/50ML IVPB 50 ML IV SCH (05:49)
[2022-08-21] MEDS: KCL 20 MEQ TAB (K-DUR) PO SCH (05:49)
[2022-08-21] MEDS ORDERED: NS IV 500 ML 500 ML IV PRN (06:00)
[2022-08-21] MEDS: LEVOTHYROXINE 100 MCG (LEVOTHROID) TAB PO SCH (06:30)
--- NOTE | 2022-08-21 07:35 | Tele-ICU Progress Note ---
Subjective Date Seen by a Provider: August 21, 2022 Subjective/Events-last exam Admitted for sepsis, hypoxia, was on BiPAP 09/09, now on 4 lpm SpO2 93%, CXR from yesterday looks congested, Still on IV Rocephin and azithromycicn UA showing > 100 WBC, I don't see a urine culture Pt is DNR/DNI WBC has gone up to 19k, LA about same, was 2.77, now 2.63, will continue with present management, get urine culture Sepsis Event Evaluation Height, Weight, BMI Height: 5'1.00" Weight: 154lbs. 5.0oz. 69.493924qi; 28.16 BMI Method: Focused Exam Lactate Level 08/20/22 23:33: Lactic Acid Level 2.56*H 08/21/22 03:55: Lactic Acid Level 2.77*H 08/21/22 06:00: Lactic Acid Level 2.63*H Time of Focused Exam: 18:50 Lactic Acid Level Laboratory Tests Test 08/21/22 03:55 08/21/22 06:00 Lactic Acid Level 2.77 MMOL/L (0.50-2.00) *H 2.63 MMOL/L (0.50-2.00) *H Exam Exam Patient acknowledged, consented, and participated in this virtual visit which was conducted using real time audio/video Vital Signs Date Time Temp Pulse Resp B/P (MAP) Pulse Ox O2 Delivery O2 Flow Rate FiO2 08/21/22 06:39 91 25 99 40.00 08/21/22 06:00 101 24 132/74 (93) 99 NIV Bilevel 50.00 08/21/22 05:00 88 11 125/82 (96) 100 NIV Bilevel 50.00 08/21/22 04:00 98 27 126/69 (88) 100 NIV Bilevel 50.00 08/21/22 04:00 100 NIV Bilevel 50 08/21/22 03:10 36.6 08/21/22 03:00 106 25 116/77 (90) 95 NIV Bilevel 50.00 08/21/22 02:16 83 19 100 40.00 08/21/22 02:00 86 24 119/67 (84) 100 NIV Bilevel 50.00 08/21/22 01:00 91 21 123/78 (93) 100 NIV Bilevel 50.00 08/21/22 00:00 101 20 126/70 (88) 100 NIV Bilevel 50.00 08/21/22 00:00 101 08/20/22 23:59 99 NIV Bilevel 50 08/20/22 23:14 36.4 08/20/22 23:00 96 12 126/77 (93) 100 NIV Bilevel 50.00 08/20/22 22:23 86 20 100 50.00 08/20/22 22:15 93 21 121/67 (85) 98 NIV Bilevel 50.00 08/20/22 22:00 93 23 132/77 (95) 97 NIV Bilevel 50.00 08/20/22 21:45 100 24 120/63 (82) 97 NIV Bilevel 50.00 08/20/22 21:30 85 21 128/62 (84) 96 NIV Bilevel 50.00 08/20/22 21:18 36.9 98 96 60 08/20/22 21:15 92 20 122/77 (92) 94 NIV Bilevel 50.00 08/20/22 21:15 92 20 122/77 (92) 94 NIV Bilevel 50.00 08/20/22 21:00 103 25 129/70 (89) 94 NIV Bilevel 50.00 08/20/22 21:00 103 25 129/70 (89) 94 NIV Bilevel 50.00 08/20/22 20:52 98 08/20/22 20:50 96 NIV Bilevel 50 08/20/22 20:45 113 26 144/80 (101) 95 NIV Bilevel 50.00 08/20/22 20:45 113 26 144/80 (101) 95 NIV Bilevel 50.00 08/20/22 20:36 98 28 94 50.00 08/20/22 20:27 110 19 133/69 99 NIV Bilevel 08/20/22 18:18 98 32 97 60.00 08/20/22 18:15 NIV Bilevel 60 08/20/22 17:59 36.9 98 30 92 OxyMask 10.00 08/20/22 17:58 OxyMask 10.00 I & O 08/21/22 07:00 Intake Total 1400 ml Output Total 1800 ml Balance -400 ml Height & Weight Height: 5'1.00" Weight: 154lbs. 5.0oz. 69.839675pi; 28.16 BMI Method: General Appearance: WD/WN, Mild Distress (DYSPNEIC ON ARRIVAL WITH AUDIBLE RHONCHI / UPPER AIRWAY NOISE), Other (LETHARGIC; DYSPNEIC) HEENT: PERRL/EOMI Neck: JVD Respiratory: Other (INCREASED AERATION, DECREASED RHONCHI AND WHEEZING IS RESOLVED) Cardiovascular: Irregularly Irregular, Tachycardia (110'S), Other (V rate is in 80's) Capillary Refill: Less Than 3 Seconds Gastrointestinal: normal bowel sounds, non tender Extremity: Normal Capillary Refill, Pedal Edema (4+ EDEMA WITH CHRONIC VENOUS STASIS CHANGES, GOOD CAPILLARY REFILL. NO OVERT CELLULITIS) Neurologic/Psychiatric: Alert, Other (MENTATION AND VERBAL RESPONSE NOTED. SHE IS NOT FOLLOWING COMMANDS. MENTATION IS NORMAL FOR PT, PER DAUGHTER. RESTING HAND TREMORS. ) Skin: Normal Color, Warm/Dry Results Lab Laboratory Tests 08/20/22 18:00 08/21/22 03:55 Assessment/Plan Assessment/Plan Probable urosepsis, hypoxia is improved, keep on 4 lpm NC, some improvement in oxygenation, will continue abx,, pt is DNR Critical Care: Critically Ill Patient Time spent with patient (mins): 25 DEBBIE WILCOX MD August 21, 2022 07:35
[2022-08-21] MEDS: dilTIAZem120 MG (CARDIZEM CD) CAP PO SCH (08:43)
[2022-08-21] MEDS: DIGOXIN 0.125 MG (LANOXIN) TAB PO SCH (08:44)
[2022-08-21] MEDS: DOCUSATE SODIUM 100 MG (COLACE) CAP PO SCH ×2 (08:44→21:00)
[2022-08-21] MEDS: FAMOTIDINE 20 MG (PEPCID) TABLET PO SCH (08:44)
[2022-08-21] MEDS: SENNOSIDES 8.6 MG (SENOKOT) TAB PO SCH ×2 (08:44→21:00)
[2022-08-21] MEDS: dilTIAZem DRIP PRE-MIX 125 ML IV SCH (11:10)
--- NOTE | 2022-08-21 13:06 | History & Physical-Hospitalist ---
[facility] 08/21/22 1306: History of Present Illness HPI/Chief Complaint 89y F with PMH of Afib, CHF, COPD, CVA, dementia who arrived to ED via EMS from long-term facility presenting with 4 days of fever, cough, congestion. EMS reported O2 sats in the 80s, sats improved with BiPap. Patient is a poor historian and no family members are present at this time. Source: RN/MD Date Seen 08/21/22 Time Seen by a Provider: 09:20 Attending Physician Eileen Farmer MD PCP Admitting Physician: Rayo Jha MD Attending Physician: Rayo Jha MD Referring Physician Date of Admission August 20, 2022 at 20:26 Home Medications & Allergies Home Medications Reviewed patient Home Medication Reconciliation performed by pharmacy medication reconciliations cable installation technician and/or nursing. Patients Allergies have been reviewed. Allergies Allergies Coded Allergies Penicillins (Verified Allergy, Unknown, 06/02/22) codeine (Verified Adverse Reaction, Unknown, NAUSEA, 06/02/22) Past Ttsmjxa-Ppgbda-Rmertq Hx Patient Social History Tobacco Use?: No Substance use?: No Alcohol Use?: No Pt feels they are or have been: No Immunizations Up To Date Date of Influenza Vaccine: Jan 14, 2022 First/Initial COVID19 Vaccinat: X4 Second COVID19 Vaccination Sonu: X4 Tetanus Booster (TDap): Unknown Seasonal Allergies Seasonal Allergies: Yes Current Status Advance Directives: Yes Primary Language: [place] Citizen Preferred Spoken Language: [place] Citizen Past Medical History Surgeries: Hysterectomy COPD Currently Using CPAP: No Currently Using BIPAP: No Atrial Fibrillation, Chronic Edema/Swelling, Hypertension Dementia, 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 Sexually Transmitted Disease: No Gastroesophageal Reflux, Diverticulosis, Chronic Diarrhea Osteoporosis, Rheumatoid Arthritis Cataract Loss of Vision: Right Hearing Impairment: Hard of Hearing Skin Did You Recieve Any Treatments: Yes What Type of Treatment Did You: Surgical Intervention Blood Disorders: No Adverse Reaction/Blood Tranf: No Review of Systems ROS-Unable to Obtain: 2/2 pt condition Physical Exam Physical Exam Vital Signs Vital Signs - First Documented 08/20/22 08/20/22 08/20/22 08/20/22 17:58 17:59 18:15 20:27 Temp 36.9 Pulse 98 Resp 30 B/P (MAP) 133/69 Pulse Ox 92 O2 Delivery OxyMask O2 Flow Rate 10.00 FiO2 60 Capillary Refill : Less Than 3 Seconds Height, Weight, BMI Height: 5'1.00" Weight: 154lbs. 5.0oz. 69.640465zd; 28.16 BMI Method: General Appearance: No Apparent Distress, WD/WN Respiratory: Lungs Clear, Normal Breath Sounds, No Respiratory Distress Cardiovascular: Irregularly Irregular, Tachycardia Gastrointestinal: Normal Bowel Sounds, Soft Extremity: Normal Capillary Refill, Pedal Edema, Swelling Neurologic/Psychiatric: Alert, Disoriented Skin: Normal Color, Warm/Dry Results Results/Procedures Labs Laboratory Tests 08/20/22 18:00 08/21/22 03:55 Patient resulted labs reviewed. Imaging: Reviewed Imaging Films, Reviewed Imaging Report Assessment/Plan Admission Diagnosis Acute respiratory failure Sepsis [place] Admission Status: Inpatient Order (span 2 midnights) Reason for Inpatient Admission: IV antibiotics, oxygen supplementation Assessment and Plan Acute respiratory failure with hypoxia Severe sepsis Acute on chronic heart failure UTI [place] on CKD Afib with RVR CXR with pulmonary venous congestion, no discrete infiltrate Started on broad spectrum antibiotics, fluids held 2/2 acute CHF Lactic acid trending down UA with >100 wbc and +nitrites/leukocyte esterase, UClx preliminary gram negative likely e.coli Patient with chronic Afib, newly with RVR on exam - consulted cardio and pt was started on IV cardizem, plan to obtain echo Continue IV abx Continue to wean oxygen as tolerated RAYO JHA MD 08/21/22 1724: History of Present Illness Source: RN/MD Exam Limitations: clinical condition Time Seen by a Provider: 10:40 Past Qkiuiit-Knmnhg-Qdrxby Hx Family Medical History No Pertinent Family Hx Review of Systems Constitutional: see HPI Assessment/Plan Admission Diagnosis Severe sepsis due to UTI Admission Status: Inpatient Order (span 2 midnights) Reason for Inpatient Admission: IV antbiotics Assessment and Plan Admitted with severe sepsis due to UTI. Fluid bolus withheld due to hypervolemia, possible CHF. Started on antibiotics. Also found to be in AFib with RVR. Cardiology consulted, started on Cardizem gtt. Poor historian due to previous stroke with residual deficits and dementia. Prognosis guarded. Critical Care Critically Ill Patient Diagnosis/Problems Diagnosis/Problems (1) Severe sepsis Status: Acute (2) UTI (urinary tract infection) Status: Acute Qualifiers: Urinary tract infection type: acute cystitis Hematuria presence: without hematuria Qualified Codes: N30.00 - Acute cystitis without hematuria (3) Lactic acidosis Status: Acute (4) Atrial fibrillation with RVR Status: Acute (5) Acute kidney injury superimposed on chronic kidney disease Status: Acute (6) Acute respiratory failure with hypoxia Status: Acute (7) Dementia Status: Chronic (8) History of CVA with residual deficit Status: Chronic (9) Severe pulmonary hypertension Status: Acute Supervisory-Addendum Brief Verification & Attestation Participated in pt care: history, MDM, physical Personally performed: exam, history, MDM, supervision of care Care discussed with: Medical Student Procedures: n/a A medical student performed and documented this service in my presence. I reviewed and verified all information documented by the medical student and made modifications to such information, when appropriate. I personally performed the physical exam and medical decision making. SERJIO WINTERS August 21, 2022 13:06 RAYO JHA MD August 21, 2022 17:24
[2022-08-21] MEDS: ENOXAPARIN 80 MG/0.8 ML (LOVENOX) SYR SC SCH (15:57)
[2022-08-21] MEDS ORDERED: RIVAROXABAN 15 MG TABLET (XARELTO) PO SCH (17:00)
[2022-08-21] MEDS: cefTRIAXone IV/IM 1,000 MG in NS (IVPB) 50 ML IV SCH (20:57)
[2022-08-21] MEDS: AtorvaSTATin TABLET 10 MG TABLET PO SCH (21:00)
[2022-08-22] MEDS: dilTIAZem DRIP PRE-MIX 125 ML IV SCH (01:27)
[2022-08-22] MEDS: RT-ALBUTEROL/IPRATROPIUM 3 ML (DUONEB) VIAL INH SCH ×6 (02:16→18:12)
[2022-08-22 05:15] LABS: BASOPHILS % (AUTO) 0 % (0-10); EOSINOPHILS % (AUTO) 0 % (0-10); HEMATOCRIT 27 % (35-52); HEMOGLOBIN 8.6 g/dL (11.5-16.0); LYMPHOCYTES # (AUTO) 1.6 10^3/uL (1.0-4.0); LYMPHOCYTES % (AUTO) 8 % (12-44); MEAN CORPUSCULAR HEMOGLOBIN 32 pg (25-34); MEAN CORPUSCULAR HGB CONC 33 g/dL (32-36); MEAN CORPUSCULAR VOLUME 97 fL (80-99); MEAN PLATELET VOLUME 10.2 fL (9.0-12.2); MONOCYTES # (AUTO) 1.5 10^3/uL (0.0-1.0); MONOCYTES % (AUTO) 7 % (0-12); NEUTROPHILS # (AUTO) 17.5 10^3/uL (1.8-7.8); NEUTROPHILS % (AUTO) 84 % (42-75); PLATELET COUNT 215 10^3/uL (130-400); WHITE BLOOD COUNT 20.8 10^3/uL (4.3-11.0)
[2022-08-22 05:34] LABS: ALBUMIN 2.8 GM/DL (3.2-4.5); POTASSIUM 4.2 MMOL/L (3.6-5.0)
[2022-08-22 05:35] LABS: CALCIUM 8.6 MG/DL (8.5-10.1)
[2022-08-22 05:36] LABS: TOTAL PROTEIN 7.2 GM/DL (6.4-8.2)
[2022-08-22 05:38] LABS: BILIRUBIN,TOTAL 0.3 MG/DL (0.1-1.0)
[2022-08-22 05:40] LABS: CREATININE SERUM 2.04 MG/DL (0.60-1.30)
[2022-08-22 05:43] LABS: MAGNESIUM 2.6 MG/DL (1.6-2.4)
[2022-08-22] MEDS: MAGNESIUM 1 GM/100 ML IVPB 100 ML IV SCH (05:56)
[2022-08-22] MEDS: KCL 20 MEQ TAB (K-DUR) PO SCH (05:56)
[2022-08-22] MEDS: POTASSIUM CL 10MEQ/50ML IVPB 50 ML IV SCH (05:56)
[2022-08-22] MEDS: inSUlin ASPART (NovoLOG) 1 UNIT/0.01 ML (CHARGE PER UNIT) SC SCH ×5 (05:56→23:34)
[2022-08-22] MEDS: LEVOTHYROXINE 100 MCG (LEVOTHROID) TAB PO SCH (05:56)
--- NOTE | 2022-08-22 07:39 | Tele-ICU Progress Note ---
Subjective Date Seen by a Provider: August 22, 2022 Time Seen by a Provider: 07:34 Subjective/Events-last exam (Tele-ICU Physician , Progress Note ) Service provided via interactive audio and video telecommunications E-CARE system to a patient admitted to ICU bed in [facility]. Patient is seen today due to persistent need of ICU care Available chart/ vitals / labs / Images reviewed Video assessment done using teleICU camera, rest of exam as per RN Discussed with RN Continue on IV Rocephin and Azithromycin, WBC about same at 20.8 blood culture is growing gpc in clusters-await coagulase test, urine growing gram negative bacillus, has been afebrile, Cr 2.04 To have swallow test today, In a fib, went from po to IV Cardizem @ 5, V rate now 70-80 On 2-4 lpm NC with SpO2 93-96% Sepsis Event Evaluation Height, Weight, BMI Height: 5'1.00" Weight: 154lbs. 5.0oz. 69.820990ki; 28.20 BMI Method: Focused Exam Lactate Level 08/21/22 08:14: Lactic Acid Level 2.15*H 08/21/22 10:13: Lactic Acid Level 2.11*H 08/21/22 12:06: Lactic Acid Level 2.45*H Time of Focused Exam: 18:50 Exam Exam Patient acknowledged, consented, and participated in this virtual visit which was conducted using real time audio/video Vital Signs Date Time Temp Pulse Resp B/P (MAP) Pulse Ox O2 Delivery O2 Flow Rate FiO2 08/22/22 06:42 92 OxyMask 2.50 08/22/22 06:00 70 22 107/55 (72) 90 OxyMask 2.50 08/22/22 05:46 62 21 90 OxyMask 2.50 08/22/22 05:00 70 16 116/58 (87) 89 OxyMask 2.00 08/22/22 04:00 90 OxyMask 2.00 08/22/22 04:00 68 22 104/58 (74) 90 OxyMask 2.00 08/22/22 04:00 35.9 08/22/22 03:00 68 22 102/62 (72) 92 OxyMask 2.00 08/22/22 02:16 91 OxyMask 2.00 08/22/22 02:00 76 23 99/52 (71) 89 OxyMask 2.00 08/22/22 01:27 85 116/64 08/22/22 01:00 82 08/22/22 01:00 82 21 108/59 (72) 91 OxyMask 2.00 08/22/22 00:00 104 19 116/64 (81) 90 OxyMask 2.00 08/21/22 23:59 92 OxyMask 2.00 08/21/22 22:00 94 22 108/60 (81) 92 OxyMask 2.00 08/21/22 21:20 92 OxyMask 2.00 08/21/22 21:00 75 24 94/55 (65) 92 OxyMask 2.00 08/21/22 20:00 94 OxyMask 2.00 08/21/22 20:00 73 25 89/46 (64) 92 OxyMask 2.00 08/21/22 19:55 36.0 08/21/22 19:00 90 25 92/47 (62) 94 OxyMask 2.00 08/21/22 19:00 90 08/21/22 18:32 91 OxyMask 2.00 08/21/22 18:00 76 28 98/47 (67) 95 OxyMask 2.00 08/21/22 17:52 OxyMask 2.00 08/21/22 17:00 89 12 81/68 (76) 90 Nasal Cannula 4.00 08/21/22 16:00 97 Nasal Cannula 4.00 08/21/22 16:00 87 24 98/60 (68) 93 Nasal Cannula 4.00 08/21/22 15:03 36.3 08/21/22 15:00 89 22 106/55 (69) 90 Nasal Cannula 4.00 08/21/22 14:40 96 Nasal Cannula 4.00 08/21/22 14:00 89 25 105/54 (65) 90 Nasal Cannula 4.00 08/21/22 13:00 92 24 107/54 (72) 91 Nasal Cannula 4.00 08/21/22 12:46 104 08/21/22 12:00 105 15 126/70 (85) 92 Nasal Cannula 4.00 08/21/22 12:00 94 Nasal Cannula 4.00 08/21/22 11:58 36.2 5/28/23 11:10 105 130/66 08/21/22 11:10 105 130/66 08/21/22 11:00 105 26 130/66 (89) 91 Nasal Cannula 4.00 08/21/22 10:00 101 19 119/64 (83) 96 Nasal Cannula 4.00 08/21/22 09:25 Nasal Cannula 4.00 08/21/22 09:13 94 22 95 40.00 08/21/22 09:00 93 29 128/71 (91) 100 NIV Bilevel 50.00 08/21/22 08:00 97 22 125/64 (82) 100 NIV Bilevel 50.00 08/21/22 08:00 97 NIV Bilevel 50 I & O 08/22/22 07:00 Intake Total 175 ml Output Total 760 ml Balance -585 ml Height & Weight Height: 5'1.00" Weight: 154lbs. 5.0oz. 69.437625kx; 28.20 BMI Method: General Appearance: No Apparent Distress, WD/WN HEENT: PERRL/EOMI Neck: JVD Respiratory: Lungs Clear, Normal Breath Sounds, No Respiratory Distress, Decreased Breath Sounds Cardiovascular: Irregularly Irregular, Tachycardia Capillary Refill: Less Than 3 Seconds Gastrointestinal: normal bowel sounds, non tender Extremity: Normal Capillary Refill, Pedal Edema (still +4 edema in legs), Swel ling Neurologic/Psychiatric: Alert, Disoriented, Other (pt has global aphasia, can protect airway) Skin: Normal Color, Warm/Dry Results Lab Laboratory Tests 08/20/22 18:00 08/21/22 03:55 08/22/22 04:57 Assessment/Plan Assessment/Plan probable urine sepsis, will continue on same abx would give one dose of IV Vanco until + BC is ID'd To have swallow exam, I would keep HOB up Pt is DNR/DNI Critical Care: Critically Ill Patient Time spent with patient (mins): 25 DEBBIE WILCOX MD August 22, 2022 07:39
[2022-08-22] MEDS: dilTIAZem120 MG (CARDIZEM CD) CAP PO SCH (09:24)
[2022-08-22] MEDS: DOCUSATE SODIUM 100 MG (COLACE) CAP PO SCH ×2 (09:24→21:16)
[2022-08-22] MEDS: DIGOXIN 0.125 MG (LANOXIN) TAB PO SCH (09:25)
[2022-08-22] MEDS: SENNOSIDES 8.6 MG (SENOKOT) TAB PO SCH ×2 (09:25→21:17)
[2022-08-22] MEDS: FAMOTIDINE 20 MG (PEPCID) TABLET PO SCH (09:25)
[2022-08-22] MEDS ORDERED: VANCOMYCIN INJECTION 0.1 MG in NS (IVPB) 250 ML IV SCH (09:45)
[2022-08-22] MEDS ORDERED: VANCOMYCIN 1250 MG/NS 250 ML PREMIX IV SCH (10:30)
[2022-08-22] MEDS ORDERED: CATHETER FLUSH 10 ML SYR IVP PRN (11:00)
--- NOTE | 2022-08-22 11:49 | Diagnostic Imaging Report ---
INDICATION: 89-year-old female, acute respiratory failure CORRELATION STUDY: Chest radiograph 08/20/2022 FINDINGS: Ventilation imaging not obtained. 5.33 mCi of technetium-99m MAA injected right hand for perfusion imaging. Limited perfusion imaging obtained in the anterior and posterior projection only. Cardiac enlargement prominent mediastinum. There is overall diminished perfusion left lung base which corresponds to chest radiograph. No large perfusion defect suggested. IMPRESSION: 1. Limited perfusion lung scan demonstrates no large perfusion defects to suggest pulmonary embolism. Dictated by: Dictated on workstation # [id number]
[2022-08-22] MEDS: ENOXAPARIN 80 MG/0.8 ML (LOVENOX) SYR SC SCH (15:33)
--- NOTE | 2022-08-22 15:33 | Consultation-Cardiology ---
HPI-Cardiology Cardiology Consultation: Date of Consultation 08/22/22 Date of Admission Attending Physician Eileen Farmer MD Admitting Physician Admitting Physician: Criss Gary MD Attending Physician: Criss Gary MD Consulting Physician Yee DECKER MD HPI: Time Seen by a Provider: 14:00 Chief Complaint: Tachycardia This is a 89-year-old lady who is DNR/DNI. She has previous history of stroke. COPD, history of congestive heart failure and permanent atrial fibrillation. Cardiology is consulted for atrial fibrillation with RVR. Patient presented with hypoxia, desaturation. Review of Systems-Cardiology Review of Systems Constitutional: no symptoms reported Eyes: no symptoms reported Ears/Nose/Throat: no symptoms reported Respiratory: SOB with excertion Cardiovascular: irregular heart rate Gastrointestinal: no symptoms reported EYI-Qclxfj-Xbpbud Hx Patient Social History 2nd Hand Smoke Exposure: Yes Alcohol Use?: No Pt feels they are or have been: No Immunizations Up To Date Tetanus Booster (TDap): Unknown Date of Influenza Vaccine: Jan 14, 2022 Past Medical History PMH As described under Assessment. Allergies and Home Medications Allergies Coded Allergies: Penicillins (Verified Allergy, Unknown, 06/02/22) codeine (Verified Adverse Reaction, Unknown, NAUSEA, 06/02/22) Patient Home Medication List Home Medication List Reviewed: Yes Apixaban (Eliquis) Unknown Strength Tablet, Unknown Dose PO BID, (Reported) Entered as Reported by: MICAH SMITH on 06/02/22 1319 Atorvastatin Calcium (Atorvastatin Calcium) 10 Mg Tablet, 10 MG PO HS, (Reported) Entered as Reported by: EVY ROBLERO on 12/06/16944 Cholecalciferol (Vitamin D3) (D3-5000) 125 Mcg (5000 Unit) Capsule, 125 MCG PO WEEK, (Reported) Entered as Reported by: Sosa Tolbert on 05/31/22918 Colestipol HCl (Colestipol HCl) 1 Gram Tablet, 1 GM PO HS, (Reported) Entered as Reported by: Sosa Tolbert on 05/31/22918 Digoxin (Digoxin) 125 Mcg Tablet, 125 MCG PO DAILY, (Reported) Entered as Reported by: EVY ROBLERO on 12/06/16 09 Diltiazem HCl (Cartia Xt) 120 Mg Cap.er.24h, 120 MG PO HS, (Reported) Entered as Reported by: EVY ROBLERO on 12/06/16947 Famotidine (Acid Medical Referral Coordinator (FAMOTIDINE)) 10 Mg Tablet, 10 MG PO BID, (Reported) Entered as Reported by: Sosa Tolbert on 05/31/22918 Furosemide (Furosemide) 20 Mg Tablet, 20 MG PO DAILY, (Reported) Entered as Reported by: Sosa Tolbert on 05/31/22918 Furosemide (Furosemide) 20 Mg Tablet, 20 MG PO NOON PRN for SBP>115, (Reported) Entered as Reported by: Sosa Tolbert on 05/31/22918 Levothyroxine Sodium (Levothyroxine Sodium) 88 Mcg Tablet, 88 MCG PO DAILY, (Reported) Entered as Reported by: EVY ROBLERO on 12/06/16944 Mecobalamin (B12 Active) 1,000 Mcg Tab.chew, 500 MCG PO DAILY, (Reported) Entered as Reported by: Sosa Tolbert on 05/31/22918 Metoprolol Succinate (Metoprolol Succinate) 25 Mg Tab.er.24h, 12.5 MG PO DAILY, (Reported) Entered as Reported by: EVY ROBLERO on 12/06/16947 Nystatin (Nystatin) 100,000 Unit/Gram Cream..g., 15 GM TP BID, (Reported) Entered as Reported by: Sosa Tolbert on 05/31/22918 Nystatin (Nystatin) 100,000 Unit/Gram Powder, 15 GM TP BID, (Reported) Entered as Reported by: Sosa Tolbert on 05/31/22918 Rivaroxaban (Xarelto Tablet) 20 Mg Tablet, 20 MG PO HS, (Reported) Entered as Reported by: EVY ROBLERO on 12/06/16944 [Lactinex] , 1 TAB PO BID, (Reported) Entered as Reported by: Sosa Tolbert on 05/31/22918 Exam Vital Signs Vital Signs Date Time Temp Pulse Resp B/P (MAP) Pulse Ox O2 Delivery O2 Flow Rate FiO2 08/22/22 15:29 89 OxyMask 4.00 08/22/22 15:00 70 22 126/73 (90) 08/22/22 12:00 36.7 08/22/22 12:00 60 Physical Exam Constitutional examination: No respiratory distress. Chest examination: Clear bilaterally. CVS: Irregular rhythm. No pedal edema Labs Laboratory Tests Test 08/21/22 17:21 08/22/22 00:00 08/22/22 04:57 08/22/22 11:55 Range/Units Glucometer 132 H 138 H 106 70-110 MG/DL White Blood Count 20.8 H 4.3-11.0 10^3/uL Red Blood Count 2.72 L 3.80-5.11 10^6/uL Hemoglobin 8.6 L 11.5-16.0 g/dL Hematocrit 27 L 35-52 % Mean Corpuscular Volume 97 80-99 fL Mean Corpuscular Hemoglobin 32 25-34 pg Mean Corpuscular Hemoglobin Concent 33 32-36 g/dL Red Cell Distribution Width 15.5 H 10.0-14.5 % Platelet Count 215 130-400 10^3/uL Mean Platelet Volume 10.2 9.0-12.2 fL Immature Granulocyte % (Auto) 1 % Neutrophils (%) (Auto) 84 H 42-75 % Lymphocytes (%) (Auto) 8 L 12-44 % Monocytes (%) (Auto) 7 0-12 % Eosinophils (%) (Auto) 0 0-10 % Basophils (%) (Auto) 0 0-10 % Neutrophils # (Auto) 17.5 H 1.8-7.8 10^3/uL Lymphocytes # (Auto) 1.6 1.0-4.0 10^3/uL Monocytes # (Auto) 1.5 H 0.0-1.0 10^3/uL Eosinophils # (Auto) 0.0 0.0-0.3 10^3/uL Basophils # (Auto) 0.0 0.0-0.1 10^3/uL Immature Granulocyte # (Auto) 0.2 H 0.0-0.1 10^3/uL Sodium Level 141 135-145 MMOL/L Potassium Level 4.2 3.6-5.0 MMOL/L Chloride Level 106 98-107 MMOL/L Carbon Dioxide Level 25 21-32 MMOL/L Anion Gap 10 5-14 MMOL/L Blood Urea Nitrogen 32 H 7-18 MG/DL Creatinine 2.04 H 0.60-1.30 MG/DL Estimat Glomerular Filtration Rate 23 BUN/Creatinine Ratio 16 Glucose Level 125 H 70-105 MG/DL Calcium Level 8.6 8.5-10.1 MG/DL Corrected Calcium 9.6 8.5-10.1 MG/DL Magnesium Level 2.6 H 1.6-2.4 MG/DL Total Bilirubin 0.3 0.1-1.0 MG/DL Aspartate Amino Transf (AST/SGOT) 9 5-34 U/L Alanine Aminotransferase (ALT/SGPT) 10 0-55 U/L Alkaline Phosphatase 69 40-136 U/L Total Protein 7.2 6.4-8.2 GM/DL Albumin 2.8 L 3.2-4.5 GM/DL ECG Impression ECG Initial ECG Rhythm: A Fib/Flutter A/P-Cardiology Assessment/Admission Diagnosis UTI sepsis. Acute kidney injury. Permanent atrial fibrillation, COPD, Hypertension, Previous stroke. Plan UTI sepsis. Antibiotics. Acute kidney injury. Permanent atrial fibrillation, patient was previously on oral anticoagulation however there is concern about swallowing therefore we will give appropriate dose Lovenox. Patient is on Cardizem infusion. Once cleared for swallowing we can change to p.o. Cardizem. For now continue Cardizem IV infusion at 5 mg. COPD, on BiPAP Hypertension, gradually add home medications. Previous stroke. Swallowing evaluation. Yee DECKER MD August 22, 2022 15:33
[2022-08-22] MEDS: cefTRIAXone IV/IM 1,000 MG in NS (IVPB) 50 ML IV SCH (20:26)
[2022-08-22] MEDS: AZITHROMYCIN INJECTION 500 MG in NS (IVPB) 250 ML IV SCH (20:27)
[2022-08-22] MEDS: AtorvaSTATin TABLET 10 MG TABLET PO SCH (21:17)
[2022-08-22 21:52] VITALS: BP 117/75
[2022-08-23] MEDS: dilTIAZem DRIP PRE-MIX 125 ML IV SCH (03:06)
[2022-08-23 05:33] LABS: BASOPHILS % (AUTO) 0 % (0-10); EOSINOPHILS % (AUTO) 0 % (0-10); HEMATOCRIT 28 % (35-52); HEMOGLOBIN 8.8 g/dL (11.5-16.0); LYMPHOCYTES # (AUTO) 1.6 10^3/uL (1.0-4.0); LYMPHOCYTES % (AUTO) 10 % (12-44); MEAN CORPUSCULAR HEMOGLOBIN 31 pg (25-34); MEAN CORPUSCULAR HGB CONC 31 g/dL (32-36); MEAN CORPUSCULAR VOLUME 99 fL (80-99); MEAN PLATELET VOLUME 10.2 fL (9.0-12.2); MONOCYTES # (AUTO) 1.5 10^3/uL (0.0-1.0); MONOCYTES % (AUTO) 9 % (0-12); NEUTROPHILS # (AUTO) 13.7 10^3/uL (1.8-7.8); NEUTROPHILS % (AUTO) 80 % (42-75); PLATELET COUNT 217 10^3/uL (130-400); WHITE BLOOD COUNT 17.1 10^3/uL (4.3-11.0)
[2022-08-23 06:05] LABS: ALBUMIN 2.8 GM/DL (3.2-4.5); BILIRUBIN,TOTAL 0.5 MG/DL (0.1-1.0); CALCIUM 8.4 MG/DL (8.5-10.1); CREATININE SERUM 1.85 MG/DL (0.60-1.30); MAGNESIUM 2.5 MG/DL (1.6-2.4); TOTAL PROTEIN 7.4 GM/DL (6.4-8.2)
[2022-08-23] MEDS: MAGNESIUM 1 GM/100 ML IVPB 100 ML IV SCH (06:24)
[2022-08-23] MEDS: LEVOTHYROXINE 100 MCG (LEVOTHROID) TAB PO SCH (06:24)
[2022-08-23] MEDS: inSUlin ASPART (NovoLOG) 1 UNIT/0.01 ML (CHARGE PER UNIT) SC SCH ×4 (06:24→23:33)
[2022-08-23] MEDS: KCL 20 MEQ TAB (K-DUR) PO SCH (06:24)
[2022-08-23] MEDS: POTASSIUM CL 10MEQ/50ML IVPB 50 ML IV SCH (06:24)
[2022-08-23] MEDS: RT-ALBUTEROL/IPRATROPIUM 3 ML (DUONEB) VIAL INH SCH ×4 (07:04→18:44)
--- NOTE | 2022-08-23 08:37 | Cardiology Progress Note ---
Subjective Date Seen by Provider: August 23, 2022 Time Seen by Provider: 08:32 Subjective/Events-last exam Patient is laying down in bed, confused. Lethargic Review of Systems General: Other (Unable to provide review of system) Focused Exam Lactate Level 08/21/22 08:14: Lactic Acid Level 2.15*H 08/21/22 10:13: Lactic Acid Level 2.11*H 08/21/22 12:06: Lactic Acid Level 2.45*H Time of Focused Exam: 18:50 Objective-Cardiology Exam Last Set of Vital Signs Vital Signs 08/22/22 08/23/22 08/23/22 16:00 07:09 07:34 Temp 36.4 Pulse Ox 93 O2 Delivery Nasal Cannula O2 Flow Rate 8.50 FiO2 60 I&O Intake and Output 08/23/22 00:00 Intake Total 375 ml Output Total 835 ml Balance -460 ml Intake Oral 0 ml IV Total 375 ml Output Urine Total 835 ml General: Alert, Cooperative HEENT: Atraumatic, PERRLA Neck: Supple, No JVD Lungs: Clear to Auscultation, Normal Air Movement Heart: Regular Rate, Normal S1, Normal S2 Abdomen: Normal Bowel Sounds Extremities: No Clubbing, No Cyanosis Skin: No Breakdown Psych/Mental Status: Mood NL Results Lab Laboratory Tests 08/23/22 05:08 A/P-Cardiology Admission Diagnosis Acute change in mental status UTI Sepsis Atrial fibrillation Assessment/Plan Acute change in mental status, Probably secondary to sepsis. Managed by medical team UTI/sepsis, maintained on antibiotics. Acute renal insufficiency. Receiving IV fluid, monitor renal function Atrial fibrillation, rate is controlled Unable to take oral pills, started on low-dose Cardizem drip Receiving Lovenox, has been maintained on Xarelto as an outpatient COPD, maintained on oxygen mask. Congestive heart failure, chronic compensated left ventricular diastolic dysfunction with ejection fraction 50% Unable to tolerate JACINTO inhibitor and/or ARB due to hypotension Last echo was done in 2015. I will repeat 2D echo Coronary artery disease, Last cardiac catheterization done in 2010 reporting minor disease nonobstructive disease Conservative management is recommended Hypertension, controlled Monitor blood pressure History of CVA in the past. Scheduled for swallowing evaluation Mild bilateral carotid stenosis, continue to monitor Hyperlipidemia, continue to monitor Hypothyroidism followed and managed by primary care physician History of syncope Peripheral edema. Improved History of tobaccoism in the past. TATIANA MCKINNEY MD August 23, 2022 08:37
[2022-08-23] MEDS: SENNOSIDES 8.6 MG (SENOKOT) TAB PO SCH ×2 (09:00→20:47)
[2022-08-23] MEDS: FAMOTIDINE 20 MG (PEPCID) TABLET PO SCH (09:00)
[2022-08-23] MEDS: DIGOXIN 0.125 MG (LANOXIN) TAB PO SCH (09:00)
--- NOTE | 2022-08-23 10:14 | Diagnostic Imaging Report ---
EXAMINATION: Chest, 1 view. HISTORY: Hypoxia. Followup. COMPARISON: 08/20/2022. FINDINGS: There is stable cardiomegaly with increasing central pulmonary vascular congestion. Scattered interstitial and alveolar opacities are seen in the lungs. Increasing bilateral pleural effusions are present, right greater than left. No pneumothorax. IMPRESSION: Worsening pulmonary edema with development of bilateral pleural effusions. Dictated by: Dictated on workstation # [id number]
[2022-08-23] MEDS: DOCUSATE SODIUM 100 MG (COLACE) CAP PO SCH ×2 (11:08→20:15)
[2022-08-23] MEDS: VANCOMYCIN 500 MG/NS 100 ML IV SCH ×2 (11:23)
--- NOTE | 2022-08-23 11:52 | Progress Note - Hospitalist ---
Subjective HPI/CC On Admission Date Seen by Provider: August 22, 2022 (late entry note) Subjective/Events-last exam LATE ENTRY NOTE Patient alert but just shakes head yes and no and does not seem to be appropriate. No family at bedside. RN reports doing well on cardizem but not alert enough to try orals yet. Focused Exam Lactate Level 08/21/22 08:14: Lactic Acid Level 2.15*H 08/21/22 10:13: Lactic Acid Level 2.11*H 08/21/22 12:06: Lactic Acid Level 2.45*H Time of Focused Exam: 18:50 Objective Exam Vital Signs Vital Signs Date Time Temp Pulse Resp B/P (MAP) Pulse Ox O2 Delivery O2 Flow Rate FiO2 08/23/22 11:34 36.3 NIV Bilevel 50.00 08/23/22 11:00 92 24 137/75 (95) 92 08/23/22 08:00 60 Capillary Refill : Less Than 3 Seconds General Appearance: No Apparent Distress, Chronically ill, Thin Respiratory: Lungs Clear, No Respiratory Distress Cardiovascular: No Murmur, Irregularly Irregular Neurologic/Psychiatric: Alert, Disoriented Results/Procedures Lab Laboratory Tests 08/23/22 05:08 Patient resulted labs reviewed. Imaging: Reviewed Imaging Films, Reviewed Imaging Report Assessment/Plan Assessment and Plan Assess & Plan/Chief Complaint Acute respiratory failure with hypoxia Severe sepsis Acute on chronic heart failure UTI [place] on CKD Afib with RVR CXR with pulmonary venous congestion, no discrete infiltrate Continue IV abx E coli in urine Cardiology consulted, appreciate recs Continue cardizem gtt Speech eval tomorrow Continue to wean oxygen as tolerated Critical Care Critically Ill Patient MANDY DIA MD August 23, 2022 11:52
--- NOTE | 2022-08-23 11:58 | Progress Note - Hospitalist ---
Subjective HPI/CC On Admission Date Seen by Provider: August 23, 2022 Subjective/Events-last exam Pt more alert today. Daughters at bedside. Speech about to evaluate and patient answering yes and no questions appropriately but doesn't speak (has baseline aphasia per report). Daughters inquire about discharge planning and potential SNF need. Focused Exam Lactate Level 08/21/22 08:14: Lactic Acid Level 2.15*H 08/21/22 10:13: Lactic Acid Level 2.11*H 08/21/22 12:06: Lactic Acid Level 2.45*H Time of Focused Exam: 18:50 Objective Exam Vital Signs Vital Signs Date Time Temp Pulse Resp B/P (MAP) Pulse Ox O2 Delivery O2 Flow Rate FiO2 08/23/22 11:34 36.3 NIV Bilevel 50.00 08/23/22 11:00 92 24 137/75 (95) 92 08/23/22 08:00 60 Capillary Refill : Less Than 3 Seconds General Appearance: Chronically ill, Thin Respiratory: No Accessory Muscle Use, Decreased Breath Sounds; No Wheezing; Other (bring switched to HI for speech eval) Cardiovascular: Irregularly Irregular; No Tachycardia Extremity: No Pedal Edema Neurologic/Psychiatric: Alert, Other (answered yes/no questions appropriately) Results/Procedures Lab Laboratory Tests 08/23/22 05:08 Patient resulted labs reviewed. Imaging: Reviewed Imaging Films, Reviewed Imaging Report Assessment/Plan Assessment and Plan Assess & Plan/Chief Complaint Acute respiratory failure with hypoxia Severe sepsis Acute on chronic heart failure UTI [place] on CKD Afib with RVR CXR with pulmonary venous congestion, no discrete infiltrate Continue IV abx E coli in urine Coag negative staph in blood cultures, vanc started yesterday Cardiology consulted, appreciate recs Continue cardizem gtt until able to take orals Speech eval Continue to wean oxygen as tolerated Creatinine improving, near baseline Critical Care Critically Ill Patient MANDY DIA MD August 23, 2022 11:58
--- NOTE | 2022-08-23 12:09 | ST Dysphagia Evaluation ---
Speech Evaluation-General Medical Diagnosis Acute Respiratory Failure Onset Date: August 20, 2022 Therapy Diagnosis Therapy Diagnosis: Mild Oropharyngeal Dysphagia Precautions Precautions: Fall, Pressure Ulcer, Aspiration Precautions/Isolations: Aspiration, Fall Prevention, Pressure Ulcer Referral Referring Physician: Dr. Alfonso Reason for Referral: Evaluation/Treatment Medical History Pertinent Medical History: COPD, Dementia, Diverticulitis Reviewed History: Yes Speech PLF/Current-Dysphagia Prior Level of Function Due to the patient's baseline aphasia, the patient's family members provided past medical history. The patient consumed a regular consistency diet with thin liquids at the assisted living facility and "ate like a bird." One family member denied swallowing challenges while the other member present reported swallowing difficulties following the patient's stroke. The specific swallowing difficulties were not provided. Subjective The patient was lying in bed, awake and alert, upon entrance to her room by the clinician. The patient greeted the clinician appropriately and was agreeable to participation in the clinical bedside swallowing evaluation. The patient has two family members at bedside. The patient was on an oxi-mask and was switched to 10 liters nasal cannula by the RN. The patient's head of bed was elevated for safe swallowing. Oral Motor Skills Dentition: Natural Ability to Follow Directions: Fair Oral Expression Ability: Moderate Impairment Face Facial Symmetry: Symmetrical (Grossly symmetrical.) Oral-Facial Assessment Oral-Facial Dentition: Normal Labial Seal Description: Weak, Poor Coordination Smile: Normal Lingual Protrusion: Abnormal (Moderately declined. ) Lingual ROM: Abnormal (Moderately reduced.) Volitional Dry Swallow: No Voluntary Cough: No Can Clear Throat Volitionally: No Productive Cough: No Productive Throat Clear: No Dysphagia Evaluation Consistencies Presented: Thin Liquid (via ice chip, teaspoon, and straw.), Pureed Reduced manipulation of ice chip, with prolonged bolus formation prior to posterior transfer. Laryngeal elevation was present to palpation, however, appeared reduced. The patient demonstrated one delayed cough following one of six teaspoons of thin liquid. No s/s of suspected aspiration were displayed with the additional teaspoons of thin liquid, ice chips, single straw drinks, consecutive straw d rinks, or puree. Dietary Recommendations: Pureed Liquid Recommendations: Thin Recommendations: - Pureed consistency diet with thin liquids, as tolerated. - Fully upright and alert for P.O. intake. - Small, single bites and sips. - Full feeding assistance and meal set-up, as necessary. - Crush medication and place in puree for administration. - Monitor for s/s of suspected aspiration with P.O. intake. If demonstrated, please contact speech pathology. - Speech pathology to monitor for tolerance of the patient's diet consistency throughout acute hospitalization. The results and recommendations were provided to the patient, the patient's family, and the RN. The patient's family stated the patient must be on a special diet for diverticulosis. The information was shared with the RN following the discussion. Speech Short Term Goals Short Term Goals Short Term Goals 1. The patient, staff, and family members will demonstrate safe swallowing practices with 80% accuracy, independently. Time Frame-STG: Three Days. Speech Media Specialist Goals Custodial Goals 1. The patient will tolerate the least restrictive diet consistency without s/s of suspected aspiration. Time Frame: One Week. Speech-Plan Treatment Plan Speech Therapy Treatment Plan: Continue Plan of Care Treatment Duration: August 23, 2022 Frequency: 4 times per week Estimated Hrs Per Day: .25 hour per day Rehab Potential: Fair Pt/Family Agrees to Plan: Yes Safety Risks/Education Teaching Recipient: Patient, Family Teaching Methods: Discussion Response to Teaching: Reinforcement Needed Education Topics Provided: Results, Recommendations, Plan of Care, Safe Swallowing Strategies Time Speech Therapy Time In: 10:20 Speech Therapy Time Out: 10:50 DATE: August 23, 2022 Total Billed Time: 30 Billed Treatment Time 1HALLE DYST LOY, ELIZABETH ST August 23, 2022 12:09
[2022-08-23] MEDS ORDERED: DILT-27 PO (12:10)
[2022-08-23] MEDS ORDERED: LEVO100T7 PO (12:10)
[2022-08-23] MEDS ORDERED: ACET-2650 PO (12:10)
[2022-08-23] MEDS ORDERED: ACID1TAB PO (12:10)
[2022-08-23] MEDS ORDERED: FAMO20TA5 PO (12:10)
[2022-08-23] MEDS ORDERED: CHOL50005 PO (12:10)
[2022-08-23] MEDS ORDERED: MENT71OI TP (12:10)
[2022-08-23] MEDS ORDERED: CYAN500T8 PO (12:10)
[2022-08-23] MEDS: dilTIAZem120 MG (CARDIZEM CD) CAP PO SCH (13:02)
--- NOTE | 2022-08-23 14:21 | Physical Therapy Evaluation ---
PT Evaluation-General Medical Diagnosis Admission Date August 20, 2022 at 20:26 Medical Diagnosis: Acute Respiratory Failure Onset Date: August 20, 2022 Therapy Diagnosis Therapy Diagnosis: Acute Respiratory Failure Height/Weight Height (Feet): 5 Height (Inches): 1.00 Weight (Pounds): 154 Weight (Ounces): 5.0 Precautions Precautions/Isolations: Aspiration, Fall Prevention, Pressure Ulcer Weight Bear Status Right Lower Extremity: Right Full Weight Bearing Left Lower Extremity: Left Full Weight Bearing Referral Physician: Dr. Alfonso Reason for Referral: Evaluation/Treatment Medical History Pertinent Medical History: COPD, Dementia, Diverticulitis Reviewed History: Yes Social History Home: Skilled Nursing Entry Into Home: Level Entry Prior Prior Level of Function SCALE: Activities may be completed with or without assistive devices. 2-Xxoxsgceli-srebdee completes the activity by him/herself with no assistance from a helper. 5-Set-up or Clean-up Assistance-helper sets up or cleans up; patient completes activity. [place] assists only prior to or following the activity. 4-Supervision or Touching Assistance-helper provides verbal cues and/or touching/steadying and/or contact guard assistance as patient completes activity. Assistance may be provided throughout the activity or intermittently. 3-Partial/Moderate Assistance-helper does LESS THAN HALF the effort. [place] lifts, holds or supports trunk or limbs, but provides less than half the effort. 2-Substantial/Maximal Assistance-helper does MORE THAN HALF the effort. [place] lifts or holds trunk or limbs and provides more than half the effort. 4-Ggeowvgbf-uiombm does ALL the effort. Patient does none of the effort to complete the activity. Or, the assistance of 2 or more helpers is required for the patient to complete the activity. If activity was not attempted, code reason: 7-Patient Refused. 9-Not Applicable-not attempted and the patient did not perform the activity before the current illness, exacerbation or injury. 10-Not Attempted due to Environmental Limitations-(lack of equipment, weather restraints, etc.). 88-Not Attempted due to Medical Conditions or Safety Concerns. Bed Mobility: 2 Transfers (B,C,W/C): 2 Gait: 9 Stairs: 9 Indoor Mobility (Ambulation): Not [place] Stairs: Not [place] Prior Devices Use: Manual wheelchair PT Evaluation-Current Subjective Patient lying supine in bed upon PT arrival, agreeable to treatment. Patient aphasic from previous CVA, unable to speak and confused at this time. Shakes her head "No" when asked about pain, however voices "I don't know" when asked her name. Identity confirmed with nurse. Objective Patient Orientation: Confused, Eyes Open Attachments: Oxygen, Xavier Catheter, IV ROM/Strength ROM Lower Extremities Patient demonstrates Bilateral drop-foot, unable to obtain ankle neutral with therapists assistance. AROM unable to assess as patient cannot follow commands. Strength Lower Extremities Strength unable to assess as patient cannot follow commands. Sensory Vision: Functional Hearing: Functional Sensation Right Lower Extremit: Impaired Sensation Left Lower Extremity: Impaired Transfers Roll Left to Right (QC): 2 Sit to Lying (QC): 2 Lying to Sitting/Side of Bed(Q: 2 Gait Does the Patient Walk?: No and Walking Goal NOT indicated Mode of Locomotion: Wheelchair Anticipated Mode of Locomotion: Wheelchair Balance Sitting Static: Poor Sitting Dynamic: Poor Assessment/Needs Patient w/c bound PLOF per nursing. Assisted living patient who would benefit from transfer to long-term to better meet her care needs. Patient at baseline, no further PT at this time. Rehab Potential: Guarded PT Plan Treatment/Plan Treatment Plan: Discontinue PT Treatment Duration: August 23, 2022 Frequency: Patient and/or Family Agrees t: Yes Discharge Recommendations Target Placement Skilled Nursing Time Time In: 1330 Time Out: 1355 DATE: August 23, 2022 Total Billed Treatment Time: 25 Total Billed Treatment Visit, AYDEN ARIAS PT August 23, 2022 14:21
--- NOTE | 2022-08-23 14:35 | Tele-ICU Progress Note ---
Subjective Date Seen by a Provider: August 23, 2022 Time Seen by a Provider: 14:34 Subjective/Events-last exam (Tele-ICU Physician , Progress Note ) Service provided via interactive audio and video telecommunications [facility] s te to a patient admitted to ICU bed in [facility]. Patient is seen today due to persistent need of ICU care Available chart/ vitals / labs / Images reviewed Video assessment done using teleICU camera, rest of exam as per RN Discussed with RN HPI: 89y F with PMH of Afib, CHF, COPD, CVA, dementia who arrived to ED via EMS from [facility] presenting with 4 days of fever, cough, congestion admitted with sevre sepsis and hypoxic respiratory failure likely 2/2 CHF exacerbation requireing continuous BiPAP. UCx with gm neg likely E.coli. On antibiotics. Afib on IV cardizem Subjective. No major events overnight. Continues to have elevated leukocytosis. Receiving one dose IV Vanc in addition to Rocephin and azithromycin. Passed swallow eval A/P: Pulm: Acute respiratory failure with hypoxia -CXR with pulm edema, no infiltrate CV: Afib with RVR. Will switch to Cardizem PO ID: Ecoli UTI, coag neg staph in blood on Vanc, await final cultiures GI: NPO, Speech eval Renal: [place] resolving. Plans in collaboration with bedside consultants and IM MDs. Discussed with RN to reach out if any questions or concerns A total of 30 minutes of critical care time was devoted to this patient today, required to treat and/or prevent further deterioration of critical care condition ( as above) Sepsis Event Evaluation Height, Weight, BMI Height: 5'1.00" Weight: 154lbs. 5.0oz. [id number]; 28.20 BMI Method: Focused Exam Lactate Level 08/21/22 08:14: Lactic Acid Level 2.15*H 08/21/22 10:13: Lactic Acid Level 2.11*H 08/21/22 12:06: Lactic Acid Level 2.45*H Time of Focused Exam: 18:50 Exam Exam Patient acknowledged, consented, and participated in this virtual visit which was conducted using real time audio/video Vital Signs Date Time Temp Pulse Resp B/P (MAP) Pulse Ox O2 Delivery O2 Flow Rate FiO2 5/30/23 14:00 90 33 125/75 (92) 93 NIV Bilevel 50.00 08/23/22 13:00 92 28 136/86 (103) 95 NIV Bilevel 50.00 08/23/22 12:49 87 08/23/22 12:00 87 25 135/80 (98) 94 NIV Bilevel 50.00 08/23/22 12:00 92 High Flow N/C 8.50 60 08/23/22 11:34 36.3 NIV Bilevel 50.00 08/23/22 11:00 92 24 137/75 (95) 92 NIV Bilevel 50.00 08/23/22 10:51 NIV Bilevel 50.00 08/23/22 10:00 108 36 132/77 (95) 90 High Flow N/C 8.50 08/23/22 09:00 88 32 141/89 (106) 90 High Flow N/C 8.50 08/23/22 08:00 82 25 131/81 (98) 92 High Flow N/C 8.50 08/23/22 08:00 92 High Flow N/C 8.50 60 08/23/22 07:34 36.4 Nasal Cannula 8.50 08/23/22 07:09 93 OxyMask 6.00 08/23/22 07:00 76 22 128/71 (90) 90 High Flow N/C 8.50 08/23/22 07:00 76 08/23/22 06:00 76 24 132/70 (90) 90 OxyMask 4.00 08/23/22 05:00 80 24 124/58 (80) 90 OxyMask 4.00 08/23/22 04:00 96 OxyMask 5.00 08/23/22 04:00 85 25 122/66 (84) 89 OxyMask 4.00 08/23/22 03:49 37.4 08/23/22 03:06 91 121/69 08/23/22 03:00 83 31 124/58 (80) 89 OxyMask 4.00 08/23/22 02:00 91 27 121/69 (86) 87 OxyMask 4.00 08/23/22 01:00 85 25 122/61 (81) 93 OxyMask 4.00 08/23/22 01:00 85 08/23/22 00:00 84 24 116/57 (76) 93 OxyMask 4.00 08/22/22 23:59 96 OxyMask 4.00 08/22/22 23:33 37.3 08/22/22 23:00 82 25 107/62 (75) 93 OxyMask 4.00 08/22/22 22:21 36.7 08/22/22 22:00 112 24 114/68 (77) 90 OxyMask 4.00 08/22/22 21:52 36.7 87 62 08/22/22 21:00 87 24 117/75 (88) 89 OxyMask 4.00 08/22/22 20:32 36.7 08/22/22 20:00 96 OxyMask 4.00 08/22/22 20:00 84 26 120/57 (72) 89 OxyMask 4.00 08/22/22 19:30 36.6 08/22/22 19:00 86 24 110/57 (86) 89 OxyMask 4.00 08/22/22 19:00 86 08/22/22 18:12 87 OxyMask 5.00 08/22/22 18:00 77 24 117/63 (81) 90 OxyMask 2.50 08/22/22 17:00 75 24 123/72 (89) 91 OxyMask 2.50 08/22/22 16:00 96 OxyMask 2.50 60 08/22/22 16:00 74 25 119/66 (83) 90 OxyMask 2.50 08/22/22 15:52 36.4 08/22/22 15:29 89 OxyMask 4.00 08/22/22 15:00 70 22 126/73 (90) 89 OxyMask 2.50 I & O 08/23/22 07:00 Intake Total 250 ml Output Total 1025 ml Balance -775 ml Height & Weight Height: 5'1.00" Weight: 154lbs. 5.0oz. [id number]; 28.20 BMI Method: General Appearance: Chronically ill, Thin HEENT: PERRL/EOMI Neck: JVD Respiratory: No Accessory Muscle Use, Decreased Breath Sounds; No Wheezing; Other (bring switched to AR for speech eval) Cardiovascular: Irregularly Irregular; No Tachycardia Capillary Refill: Less Than 3 Seconds Gastrointestinal: normal bowel sounds, non tender Extremity: No Pedal Edema Neurologic/Psychiatric: Alert, Other (answered yes/no questions appropriately) Skin: Normal Color, Warm/Dry Results Lab Laboratory Tests 08/22/22 04:57 08/23/22 05:08 Assessment/Plan Assessment/Plan . FREDI RASCON MD August 23, 2022 14:35
[2022-08-23 14:48] VITALS: BP 125/75
[2022-08-23] MEDS: ENOXAPARIN 80 MG/0.8 ML (LOVENOX) SYR SC SCH (16:46)
[2022-08-23 18:44] VITALS: BP 123/71
[2022-08-23] MEDS: cefTRIAXone IV/IM 1,000 MG in NS (IVPB) 50 ML IV SCH (20:11)
[2022-08-23] MEDS: AtorvaSTATin TABLET 10 MG TABLET PO SCH (20:47)
[2022-08-23] MEDS: AZITHROMYCIN INJECTION 500 MG in NS (IVPB) 250 ML IV SCH (20:54)
[2022-08-23 22:36] VITALS: BP 106/53
[2022-08-24 03:31] VITALS: BP 117/60
[2022-08-24 04:32] LABS: BASOPHILS % (AUTO) 0 % (0-10); EOSINOPHILS % (AUTO) 0 % (0-10); HEMATOCRIT 25 % (35-52); HEMOGLOBIN 7.8 g/dL (11.5-16.0); LYMPHOCYTES # (AUTO) 1.7 10^3/uL (1.0-4.0); LYMPHOCYTES % (AUTO) 16 % (12-44); MEAN CORPUSCULAR HEMOGLOBIN 32 pg (25-34); MEAN CORPUSCULAR HGB CONC 32 g/dL (32-36); MEAN CORPUSCULAR VOLUME 100 fL (80-99); MEAN PLATELET VOLUME 10.2 fL (9.0-12.2); MONOCYTES # (AUTO) 1.1 10^3/uL (0.0-1.0); MONOCYTES % (AUTO) 10 % (0-12); NEUTROPHILS # (AUTO) 7.7 10^3/uL (1.8-7.8); NEUTROPHILS % (AUTO) 72 % (42-75); PLATELET COUNT 198 10^3/uL (130-400); WHITE BLOOD COUNT 10.8 10^3/uL (4.3-11.0)
[2022-08-24 04:55] LABS: ALBUMIN 2.6 GM/DL (3.2-4.5); BILIRUBIN,TOTAL 0.4 MG/DL (0.1-1.0); CALCIUM 8.3 MG/DL (8.5-10.1); CREATININE SERUM 1.67 MG/DL (0.60-1.30); MAGNESIUM 2.1 MG/DL (1.6-2.4); TOTAL PROTEIN 6.8 GM/DL (6.4-8.2)
--- NOTE | 2022-08-24 05:36 | Diagnostic Imaging Report ---
Indication: Respiratory failure Portable chest 5:09 AM There is cardiomegaly with pulmonary vascular congestion. There are medial basilar infiltrates. There is no appreciable effusion or pneumothorax. IMPRESSION: Cardiomegaly with pulmonary venous hypertension. There are bilateral medial basilar infiltrates that could be edema versus inflammatory. Overall aeration appears slightly improved compared to the previous day. Dictated by: Dictated on workstation # [id number]
[2022-08-24] MEDS: KCL 20 MEQ TAB (K-DUR) PO SCH (05:40)
[2022-08-24] MEDS: inSUlin ASPART (NovoLOG) 1 UNIT/0.01 ML (CHARGE PER UNIT) SC SCH ×4 (05:40→23:42)
[2022-08-24] MEDS: MAGNESIUM 1 GM/100 ML IVPB 100 ML IV SCH (05:40)
[2022-08-24] MEDS: POTASSIUM CL 10MEQ/50ML IVPB 50 ML IV SCH (05:40)
[2022-08-24] MEDS: LEVOTHYROXINE 100 MCG (LEVOTHROID) TAB PO SCH (05:51)
[2022-08-24 06:14] VITALS: BP 119/82
[2022-08-24] MEDS: RT-ALBUTEROL/IPRATROPIUM 3 ML (DUONEB) VIAL INH SCH ×4 (06:14→19:15)
[2022-08-24] MEDS ORDERED: FUROSEMIDE 40 MG/4 ML INJ (LASIX) IVP ONE (08:00)
[2022-08-24] MEDS: SENNOSIDES 8.6 MG (SENOKOT) TAB PO SCH ×2 (08:59→21:19)
[2022-08-24] MEDS: DOCUSATE SODIUM 100 MG (COLACE) CAP PO SCH (08:59)
[2022-08-24] MEDS: DIGOXIN 0.125 MG (LANOXIN) TAB PO SCH (09:00)
[2022-08-24] MEDS: meTOprolol TARTRATE 25 MG (LOPRESSOR) TABLET PO SCH ×2 (09:00→21:19)
[2022-08-24] MEDS: FAMOTIDINE 20 MG (PEPCID) TABLET PO SCH (09:01)
--- NOTE | 2022-08-24 09:41 | Cardiology Progress Note ---
Subjective Date Seen by Provider: August 24, 2022 Time Seen by Provider: 08:20 Subjective/Events-last exam Patient currently on BiPAP Focused Exam Lactate Level 08/21/22 10:13: Lactic Acid Level 2.11*H 08/21/22 12:06: Lactic Acid Level 2.45*H Time of Focused Exam: 18:50 Objective-Cardiology Exam Last Set of Vital Signs Vital Signs 08/24/22 08/24/22 08/24/22 03:44 07:42 08:00 Temp 36.4 Pulse 109 Resp 29 B/P (MAP) 126/67 (86) Pulse Ox 96 O2 Delivery NIV Bilevel O2 Flow Rate 30.00 FiO2 30 I&O Intake and Output 08/24/22 00:00 Intake Total 1725 ml Output Total 1035 ml Balance 690 ml Intake Oral 1250 ml IV Total 475 ml Output Urine Total 1035 ml General: Alert, Cooperative HEENT: Atraumatic, PERRLA Neck: Supple, No JVD Lungs: Other (rhonchi) Heart: Regular Rate, Normal S1, Normal S2 Abdomen: Normal Bowel Sounds Extremities: No Clubbing, No Cyanosis Skin: No Breakdown Psych/Mental Status: Mood NL Results Lab Laboratory Tests 08/24/22 03:44 A/P-Cardiology Admission Diagnosis Acute change in mental status UTI Sepsis Atrial fibrillation Assessment/Plan Acute change in mental status, Probably secondary to sepsis. Managed by medical team UTI/sepsis, maintained on antibiotics. Acute renal insufficiency. Receiving IV fluid, monitor renal function Atrial fibrillation, rate is controlled Unable to take oral pills, started on low-dose Cardizem drip Receiving Lovenox, has been maintained on Xarelto as an outpatient COPD, maintained on oxygen mask. Congestive heart failure, chronic compensated left ventricular diastolic dysfunction with ejection fraction 50% Unable to tolerate JACINTO inhibitor and/or ARB due to hypotension 2D Echo Coronary artery disease, Last cardiac catheterization done in 2010 reporting minor disease nonobstructive disease Conservative management is recommended Hypertension, controlled Monitor blood pressure History of CVA in the past. Mild bilateral carotid stenosis, continue to monitor Hyperlipidemia, continue to monitor Hypothyroidism followed and managed by primary care physician History of syncope Peripheral edema. Improved History of tobaccoism in the past. KRISTIE MARINELLI August 24, 2022 09:41
--- NOTE | 2022-08-24 09:51 | Cardiology Progress Note ---
Subjective Date Seen by Provider: August 24, 2022 Time Seen by Provider: 09:49 Subjective/Events-last exam Patient was seen at bedside, sitting comfortably, feeling better Review of Systems General: Other (Confused) HEENT: No Head Aches, No Visual Changes, No Eye Pain, No Ear Pain, No Dysphasia, No Sinus Congestion, No Post Nasal Drip, No Sore Throat, No Other Pulmonary: No Dyspnea, No Cough, No Pleuritic Chest Pain, No Other Cardiovascular: No: Chest Pain, Palpitations, Orthopnea, Paroxysmal Noc. Dyspnea, Edema, Lt Headedness, Other Focused Exam Lactate Level 08/21/22 10:13: Lactic Acid Level 2.11*H 08/21/22 12:06: Lactic Acid Level 2.45*H Time of Focused Exam: 18:50 Objective-Cardiology Exam Last Set of Vital Signs Vital Signs 08/24/22 08/24/22 08/24/22 07:42 08:00 09:00 Temp 36.4 Pulse 94 Resp 29 B/P (MAP) 129/73 (91) Pulse Ox 96 O2 Delivery NIV Bilevel O2 Flow Rate 30.00 FiO2 30 I&O Intake and Output 08/24/22 00:00 Intake Total 1725 ml Output Total 1035 ml Balance 690 ml Intake Oral 1250 ml IV Total 475 ml Output Urine Total 1035 ml General: Alert, Cooperative HEENT: Atraumatic, PERRLA Neck: Supple, No JVD Lungs: Clear to Auscultation, Normal Air Movement Heart: Regular Rate, Normal S1, Normal S2 Abdomen: Normal Bowel Sounds Extremities: No Clubbing, No Cyanosis Skin: No Breakdown Psych/Mental Status: Mood NL Results Lab Laboratory Tests 08/24/22 03:44 A/P-Cardiology Admission Diagnosis Acute change in mental status UTI Sepsis Atrial fibrillation Assessment/Plan Acute change in mental status, Probably secondary to sepsis. Managed by medical team UTI/sepsis, maintained on antibiotics. Improving. Managed by medical team Acute renal insufficiency. Receiving IV fluid, monitor renal function Atrial fibrillation, rate is controlled Currently on Cardizem 60 mg every 6 hours, Lopressor 12.5 mg every 12 hours, digoxin 0.125 mg daily Continue to monitor CHADVASC score 4, restart Xarelto, I will discontinue enoxaparin COPD, maintained on oxygen mask. Congestive heart failure, chronic compensated left ventricular diastolic dysfunction with ejection fraction 50% Unable to tolerate JACINTO inhibitor and/or ARB due to hypotension 2D echo was done on August 21, 2022 with normal left ventricular size and ejection fraction 55 to 60%, dilated right heart chambers with severe pulmonary hypertension with PA pressure 70 to 75 mmHg, mild mitral and tricuspid regurgitation Coronary artery disease, Last cardiac catheterization done in 2010 reporting minor disease nonobstructive disease Conservative management is recommended Hypertension, controlled Monitor blood pressure History of CVA in the past. Scheduled for swallowing evaluation Mild bilateral carotid stenosis, continue to monitor Hyperlipidemia, continue to monitor Hypothyroidism followed and managed by primary care physician History of syncope Peripheral edema. Improved History of tobaccoism in the past. TATIANA MCKINNEY MD August 24, 2022 09:51
[2022-08-24] MEDS ORDERED: TROUGH ORDER-PHARMACY XX ONE (10:00)
--- NOTE | 2022-08-24 10:43 | Progress Note - Hospitalist ---
Subjective HPI/CC On Admission Date Seen by Provider: August 24, 2022 Subjective/Events-last exam Pt on BiPAP. Awakens easily. Nods to communicate. Focused Exam Lactate Level 08/21/22 12:06: Lactic Acid Level 2.45*H Time of Focused Exam: 18:50 Objective Exam Vital Signs Vital Signs Date Time Temp Pulse Resp B/P (MAP) Pulse Ox O2 Delivery O2 Flow Rate FiO2 08/24/22 10:07 95 High Flow N/C 10.00 08/24/22 10:00 84 26 116/70 (85) 08/24/22 08:00 30 08/24/22 07:42 36.4 Capillary Refill : Less Than 3 Seconds General Appearance: No Apparent Distress Respiratory: Decreased Breath Sounds, Other (on BiPAP) Cardiovascular: No Murmur, Irregularly Irregular Gastrointestinal: Normal Bowel Sounds, Soft Neurologic/Psychiatric: Alert Results/Procedures Lab Laboratory Tests 08/24/22 03:44 Patient resulted labs reviewed. Imaging: Reviewed Imaging Films, Reviewed Imaging Report Assessment/Plan Assessment and Plan Assess & Plan/Chief Complaint Acute respiratory failure with hypoxia Severe sepsis Acute on chronic heart failure UTI [place] on CKD Afib with RVR CXR with pulmonary venous congestion, no discrete infiltrate Continue IV abx E coli in urine Coag negative staph in blood cultures,repeat them today to make sure cleared Cardiology consulted, appreciate recs Transitioned to oral cardizem and metoprolol yesterday, rate controlled Speech eval- pureed and thin liquids BiPAP yesterday PM- will repeat Lasix dose- monitor I/Os Creatinine stable PT/OT Social work consulted, will likely need SNF placement upon DC Critical Care Critically Ill Patient MANDY DIA MD August 24, 2022 10:43
[2022-08-24] MEDS: VANCOMYCIN 500 MG/NS 100 ML IV SCH ×2 (11:22)
[2022-08-24] MEDS: dilTIAZem DRIP PRE-MIX 125 ML IV SCH (11:22)
[2022-08-24] MEDS: DOCUSATE SODIUM 10 MG/ML 10 ML UDC (COLACE) PO SCH ×2 (11:40→21:19)
--- NOTE | 2022-08-24 12:37 | Tele-ICU Progress Note ---
Subjective Date Seen by a Provider: August 24, 2022 Time Seen by a Provider: 12:37 Subjective/Events-last exam (Tele-ICU Physician , Progress Note ) Service provided via interactive audio and video telecommunications E-CARE system to a patient admitted to ICU bed in [facility]. Patient is seen today due to persistent need of ICU care Available chart/ vitals / labs / Images reviewed Video assessment done using teleICU camera, rest of exam as per RN Discussed with RN Events overnight : Afebrile hemodynamically stable Respiratory - 10 L I/O = Drips: Pressors- no A/P Acute resp failure - 10 L - diuresis Acute change in mental status, Probably secondary to sepsis UTI/sepsis Ecol - cont abx [place]/ ?CKD- -improving , monitor Atrial fibrillation, rate is controlled - as per cards -Xarelto CAD - EF 55 to 60% COPD - CPM Severe pulmonary hypertension - PA pressure 70 to 75 mmHg, mild mitral and tricuspid regurgitation h/o CVA , CAD , NH resident - chair bound -swallowing evaluation - modified diet Lines : proph , (Central Line Necessity Reviewed) Xavier: + OG: Nutrition: Analgesia: Anxiety/ delirium VTE Prophylaxis: xarelto Stress Ulcer Prophylaxis: na Plans in collaboration with bedside consultants and IM MDs. Discussed with RN to reach out if any questions or concerns Case and care daily discussed on multidisciplinary rounds ( RN, PharmD, Community Education Coordinator , Respiratory Therapy, toll testboard worker ) A total of 25 minutes of critical care time was devoted to this patient today, required to treat and/or prevent further deterioration of critical care condition ( as above ) . I am remotely monitoring this patient from another state. I am unable to do the bedside exam, and history/physical and pertinent information is taken from other notes in the computer and bedside staff. Sepsis Event Evaluation Height, Weight, BMI Height: 5'1.00" Weight: 154lbs. 5.0oz. 69.249899mb; 28.20 BMI Method: Focused Exam Time of Focused Exam: 18:50 Exam Exam Patient acknowledged, consented, and participated in this virtual visit which was conducted using real time audio/video Vital Signs Date Time Temp Pulse Resp B/P (MAP) Pulse Ox O2 Delivery O2 Flow Rate FiO2 08/24/22 12:00 High Flow N/C 15.00 30 08/24/22 12:00 36.8 Nasal Cannula 8.50 08/24/22 10:07 95 High Flow N/C 10.00 08/24/22 10:00 84 26 116/70 (85) 95 NIV Bilevel 30.00 08/24/22 09:00 94 29 129/73 (91) 96 NIV Bilevel 30.00 08/24/22 08:00 109 29 126/67 (86) 96 NIV Bilevel 30.00 08/24/22 08:00 High Flow N/C 15.00 30 08/24/22 07:42 36.4 NIV Bilevel 30.00 08/24/22 07:28 104 08/24/22 07:00 105 30 119/65 (83) 96 NIV Bilevel 30.00 08/24/22 06:14 93 27 96 30.00 08/24/22 06:00 95 23 119/82 (98) 96 08/24/22 05:00 90 25 120/78 (81) 95 08/24/22 04:24 37.3 08/24/22 04:00 93 20 108/70 (82) 95 30.00 08/24/22 03:44 NIV Bilevel 30 08/24/22 03:31 100 24 97 30.00 08/24/22 03:00 87 24 117/60 (85) 97 NIV Bilevel 40.00 08/24/22 02:00 87 28 97/62 (72) 96 08/24/22 01:00 89 31 105/64 (75) 98 08/24/22 01:00 95 08/24/22 00:18 100 40.00 08/24/22 00:00 101 34 110/57 (75) 100 NIV Bilevel 50.00 08/23/22 23:44 37.2 08/23/22 23:25 NIV Bilevel 50 08/23/22 23:00 98 32 116/67 (85) 99 08/23/22 22:36 108 33 98 50.00 08/23/22 22:00 106 21 106/53 (70) 98 NIV Bilevel 50.00 08/23/22 21:00 116 32 137/67 (90) 95 08/23/22 20:00 101 24 115/70 (78) 97 08/23/22 19:25 37.5 34 NIV Bilevel 50.00 08/23/22 19:25 NIV Bilevel 50 08/23/22 19:00 101 33 122/60 (77) 96 08/23/22 19:00 111 08/23/22 18:44 90 27 96 50.00 08/23/22 18:00 100 28 123/71 (88) 98 NIV Bilevel 50.00 08/23/22 17:00 104 27 125/69 (87) 95 NIV Bilevel 50.00 08/23/22 16:00 92 High Flow N/C 8.50 60 08/23/22 16:00 99 27 122/62 (82) 95 NIV Bilevel 50.00 08/23/22 15:00 89 25 116/66 (83) 95 NIV Bilevel 50.00 08/23/22 14:48 93 29 94 50.00 08/23/22 14:00 90 33 125/75 (92) 93 NIV Bilevel 50.00 08/23/22 13:00 92 28 136/86 (103) 95 NIV Bilevel 50.00 08/23/22 12:49 87 I & O 08/24/22 07:00 Intake Total 1825 ml Output Total 810 ml Balance 1015 ml Height & Weight Height: 5'1.00" Weight: 154lbs. 5.0oz. 69.326289rh; 28.20 BMI Method: General Appearance: No Apparent Distress HEENT: PERRL/EOMI Neck: JVD Respiratory: Decreased Breath Sounds, Other (on BiPAP) Cardiovascular: No Murmur, Irregularly Irregular Capillary Refill: Less Than 3 Seconds Gastrointestinal: normal bowel sounds, non tender Extremity: No Pedal Edema Neurologic/Psychiatric: Alert Skin: Normal Color, Warm/Dry Results Lab Laboratory Tests 08/23/22 05:08 08/24/22 03:44 Assessment/Plan Assessment/Plan 1 JUAN SILVA MD August 24, 2022 12:37
--- NOTE | 2022-08-24 15:15 | Occupational Therapy Eval ---
OT Evaluation-General/PLF Medical Diagnosis Admission Date August 20, 2022 at 20:26 Medical Diagnosis: Acute Respiratory Failure Onset Date: August 20, 2022 Therapy Diagnosis Therapy Diagnosis: debility, weakness Height/Weight Height (Feet): 5 Height (Inches): 1.00 Weight (Pounds): 154 Weight (Ounces): 5.0 Precautions Precautions/Isolations: Standard Precautions Referral Physician: Dr. Alfonso Referral Reason: Evaluation/Treatment Medical History Pertinent Medical History: COPD, Dementia, Diverticulitis Additional Medical History 89y F with PMH of Afib, CHF, COPD, CVA, dementia who arrived to ED via EMS from alf facility presenting with 4 days of fever, cough, congestion. EMS reported O2 sats in the 80s, sats improved with BiPap Current History Family is present sand discussing next course of action Reviewed History: Yes Social History Home: Intermediate (NH/LTAC/DETENTION) Entry Into Home: Level Entry ADL-Prior Level of Function SCALE: Activities may be completed with or without assistive devices. 1-Kuwqgrpmzs-yucdqob completes the activity by him/herself with no assistance from a helper. 5-Set-up or Clean-up Assistance-helper sets up or cleans up; patient completes activity. Fisher assists only prior to or following the activity. 4-Supervision or Touching Assistance-helper provides verbal cues and/or touching/steadying and/or contact guard assistance as patient completes activity. Assistance may be provided throughout the activity or intermittently. 3-Partial/Moderate Assistance-helper does LESS THAN HALF the effort. Fisher lifts, holds or supports trunk or limbs, but provides less than half the effort. 2-Substantial/Maximal Assistance-helper does MORE THAN HALF the effort. Fisher lifts or holds trunk or limbs and provides more than half the effort. 1-Clnxnyhxd-zqqgpl does ALL the effort. Patient does none of the effort to complete the activity. Or, the assistance of 2 or more helpers is required for the patient to complete the activity. If activity was not attempted, code reason: 7-Patient Refused. 9-Not Applicable-not attempted and the patient did not perform the activity before the current illness, exacerbation or injury. 10-Not Attempted due to Environmental Limitations-(lack of equipment, weather restraints, etc.). 88-Not Attempted due to Medical Conditions or Safety Concerns. Self Care: Needed Some Help Functional Cognition: Needed Some Help Patient is WC bound, dependent transfer at facility, dependent ADLS, global aphasia, Requires demonstration and mirrored ROM for evaluation Drive Self: No OT Current Status Subjective Family gives consent for evaluation Pain Numeric Pain Scale: 0-No Pain Mental Status/Objective Patient Orientation: Person Identity confirmed w/ band and nurse, family in room as patient does not verbally respond to OT Current Upper Extremity ROM PROM AAROM WFLS , does not follow instruction for AROM Upper Extremity Coordination Grabs at hand bed rail, pulls on blankets Upper Extremity Strength +3/5 observed ADL-Treatment Oral Hygiene (QC): 3 Shower/Bathe Self (QC): 1 (bedbath) Upper Body Dressing (QC): 2 Lower Body Dressing (QC): 2 (rolling r/l in bed with use of hand bed rail) On/Off Footwear (QC): 7 (already on) Toileting Hygiene (QC): 2 Education OT Patient Education: Modified ADL techniques, Progress toward Goal/Update tx plan, Purpose of tx/functional activities, Reviewed precautions, Rehab process, Safety issues Teaching Recipient: Family Teaching Methods: Discussion Response to Teaching: Verbalize Understanding OT Half-Way Goals French Pastry Cook Goals 1=Demonstrate adherence to instructed precautions during ADL tasks. 2=Patient will verbalize/demonstrate understanding of assistive devices/ana fications for ADL. 3=Patient will improve strength/tolerance for activity to enable patient to perform ADL's. OT Education/Plan Discharge Recommendations Plan/Recommendations: Discontinue OT Therapy Discharge Recommendati: Post Acute OT (SNF) Treatment Plan/Plan of Care Treatment,Training & Education: Yes Patient would benefit from OT for education, treatment and training to promote independence in ADL's, mobility, safety and/or upper extremity function for ADL's. Plan of Care: Caregiver Training, Concurrent Therapy, Functional Mobility, Group Exercise/Act as Ind, UE Funct Exercise/Act Treatment Duration: August 24, 2022 Frequency: 1 time per week Estimated Hrs Per Day: .25 hour per day Rehab Potential: Fair Time Start Time: 14:50 Stop Time: 15:03 DATE: August 24, 2022 Total Time Billed (hr/min): 13 Billed Treatment Time EVL 13 WILLIAN Elizondo OT August 24, 2022 15:15
[2022-08-24] MEDS: RIVAROXABAN 15 MG TABLET (XARELTO) PO SCH (17:25)
[2022-08-24 19:16] VITALS: BP 122/77
[2022-08-24] MEDS: cefTRIAXone IV/IM 1,000 MG in NS (IVPB) 50 ML IV SCH (20:07)
[2022-08-24] MEDS ORDERED: AZITHROMYCIN 250 MG TAB (ZITHROMAX) PO SCH (21:00)
[2022-08-24] MEDS: AtorvaSTATin TABLET 10 MG TABLET PO SCH (21:19)
[2022-08-24 22:06] VITALS: BP 123/83
[2022-08-25 02:06] VITALS: BP 104/78
[2022-08-25 04:02] LABS: BASOPHILS % (AUTO) 0 % (0-10); EOSINOPHILS % (AUTO) 0 % (0-10); HEMATOCRIT 26 % (35-52); HEMOGLOBIN 8.1 g/dL (11.5-16.0); LYMPHOCYTES # (AUTO) 1.1 10^3/uL (1.0-4.0); LYMPHOCYTES % (AUTO) 12 % (12-44); MEAN CORPUSCULAR HEMOGLOBIN 31 pg (25-34); MEAN CORPUSCULAR HGB CONC 32 g/dL (32-36); MEAN CORPUSCULAR VOLUME 99 fL (80-99); MEAN PLATELET VOLUME 10.2 fL (9.0-12.2); MONOCYTES # (AUTO) 1.3 10^3/uL (0.0-1.0); MONOCYTES % (AUTO) 14 % (0-12); NEUTROPHILS # (AUTO) 6.8 10^3/uL (1.8-7.8); NEUTROPHILS % (AUTO) 72 % (42-75); PLATELET COUNT 182 10^3/uL (130-400); WHITE BLOOD COUNT 9.3 10^3/uL (4.3-11.0)
[2022-08-25 04:21] LABS: ALBUMIN 2.8 GM/DL (3.2-4.5); POTASSIUM 4.1 MMOL/L (3.6-5.0)
[2022-08-25 04:22] LABS: CALCIUM 8.6 MG/DL (8.5-10.1)
[2022-08-25 04:23] LABS: TOTAL PROTEIN 7.5 GM/DL (6.4-8.2)
[2022-08-25 04:25] LABS: BILIRUBIN,TOTAL 0.4 MG/DL (0.1-1.0)
[2022-08-25 04:27] LABS: CREATININE SERUM 1.6 MG/DL (0.60-1.30)
[2022-08-25 04:30] LABS: MAGNESIUM 1.7 MG/DL (1.6-2.4)
[2022-08-25] MEDS: KCL 20 MEQ TAB (K-DUR) PO SCH (04:31)
[2022-08-25] MEDS: POTASSIUM CL 10MEQ/50ML IVPB 50 ML IV SCH (04:31)
[2022-08-25] MEDS: inSUlin ASPART (NovoLOG) 1 UNIT/0.01 ML (CHARGE PER UNIT) SC SCH ×4 (05:46→23:32)
[2022-08-25] MEDS: MAGNESIUM 1 GM/100 ML IVPB 100 ML IV SCH ×4 (05:46→09:07)
[2022-08-25] MEDS: LEVOTHYROXINE 100 MCG (LEVOTHROID) TAB PO SCH (06:07)
[2022-08-25] MEDS: RT-ALBUTEROL/IPRATROPIUM 3 ML (DUONEB) VIAL INH SCH ×4 (06:20→19:05)
--- NOTE | 2022-08-25 08:36 | Cardiology Progress Note ---
Subjective Date Seen by Provider: Aug 25, 2022 Time Seen by Provider: 08:34 Subjective/Events-last exam Patient was seen at bedside, currently on 10 L nasal cannula alternating with BiPAP Review of Systems General: No Chills, No Night Sweats; Fatigue, Malaise; No Appetite, No Other HEENT: No Head Aches, No Visual Changes, No Eye Pain, No Ear Pain, No Dysphasia, No Sinus Congestion, No Post Nasal Drip, No Sore Throat, No Other Pulmonary: Dyspnea; No Cough, No Pleuritic Chest Pain, No Other Cardiovascular: No: Chest Pain, Palpitations, Orthopnea, Paroxysmal Noc. Dyspnea, Edema, Lt Headedness, Other Focused Exam Time of Focused Exam: 18:50 Objective-Cardiology Exam Last Set of Vital Signs Vital Signs 08/25/22 08/25/22 08/25/22 03:40 07:20 07:30 Temp 36.3 Pulse 86 FiO2 70 I&O Intake and Output 08/25/22 00:00 Intake Total 1000 ml Output Total 2475 ml Balance -1475 ml Intake Oral 950 ml IV Total 50 ml Output Urine Total 2475 ml General: Alert, Cooperative HEENT: Atraumatic, PERRLA Neck: Supple, No JVD Lungs: Other (rhonchi) Heart: Regular Rate, Normal S1, Normal S2 Abdomen: Normal Bowel Sounds Extremities: No Clubbing, No Cyanosis Skin: No Breakdown Psych/Mental Status: Mood NL Results Lab Laboratory Tests 08/25/22 03:29 A/P-Cardiology Admission Diagnosis Acute change in mental status UTI Sepsis Atrial fibrillation Assessment/Plan Acute change in mental status, Probably secondary to sepsis and hypoxemia. Managed by medical team UTI/sepsis, managed by primary care team Acute renal insufficiency. Was receiving IV fluid, received dose of Lasix. Continue to monitor renal function Atrial fibrillation, rate is controlled Unable to take oral pills, started on low-dose Cardizem drip Receiving Lovenox, has been maintained on Xarelto as an outpatient COPD, acute exacerbation, currently on BiPAP alternating with 10 L nasal cannula Congestive heart failure, chronic compensated left ventricular diastolic dysfunction with ejection fraction 50% Unable to tolerate JACINTO inhibitor and/or ARB due to hypotension 2D Echo done on August 21, 2022 with ejection fraction 65%, severe pulmonary hypertension with PA 70 to 75 mmHg, dilated right heart chambers with wide open tricuspid regurgitation Coronary artery disease, Last cardiac catheterization done in 2010 reporting minor disease nonobstructive disease Conservative management is recommended Hypertension, controlled Monitor blood pressure History of CVA in the past. Mild bilateral carotid stenosis, continue to monitor Hyperlipidemia, continue to monitor Hypothyroidism followed and managed by primary care physician History of syncope Peripheral edema. Improved History of tobaccoism in the past. TATIANA MCKINNEY MD Aug 25, 2022 08:36
[2022-08-25] MEDS: SENNOSIDES 8.6 MG (SENOKOT) TAB PO SCH ×2 (09:06→20:42)
[2022-08-25] MEDS: DIGOXIN 0.125 MG (LANOXIN) TAB PO SCH (09:06)
[2022-08-25] MEDS: DOCUSATE SODIUM 10 MG/ML 10 ML UDC (COLACE) PO SCH ×2 (09:06→20:42)
[2022-08-25] MEDS: meTOprolol TARTRATE 25 MG (LOPRESSOR) TABLET PO SCH ×2 (09:06→20:43)
[2022-08-25] MEDS: FAMOTIDINE 20 MG (PEPCID) TABLET PO SCH (09:07)
--- NOTE | 2022-08-25 09:18 | Tele-ICU Progress Note ---
Subjective Date Seen by a Provider: Aug 25, 2022 Subjective/Events-last exam This virtual visit was conducted using real time audio/video. Thank you for asking us to see this patient for respiratory insufficiency due to AECOPD/CHF and AMS. Also urosepsis, controlled afib, pulm. htn Recent events: Diuresed w lasix IV. PE: VSS. O2 sat 93% on 10 LPM. HEENT: No obvious masses, adenopathy or JVD. Chest: coarse on auscultation. CV: Irreg. S1 S2 No murmur or added sounds. Abd: Non-tender. Bowel sounds Y. : Unremarkable. 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 No obvious focal findings. Extremities: 2+ edema. Capillary refill < 3 seconds. Skin: unremarkable. Results: Elevated BUN 26, BG 118. Decreased Hb8.1. CXR: Hyperinflated, car diomeg., congestion improved. Available chart/ vitals / labs / images reviewed. Video assessment done using teleICU camera, rest of exam as per RN. A/P: Respiratory insufficiency: Continue present management with O2, PRN BiPAP, duonebs Monitor for increasing oxygenation needs. DNR. Critical Care: critically ill patient. Cont.Xarelto, abx, dig., pepcid, statin, metop., SSI. Discussed with RN Ray. Asked RN to reach out to eICU if any questions or concerns later. Time spent with patient/coordination of care with other health professionals (mins): 25 Sepsis Event Evaluation Height, Weight, BMI Height: 5'1.00" Weight: 154lbs. 5.0oz. 69.475910ss; 28.20 BMI Method: Focused Exam Time of Focused Exam: 18:50 Exam Exam Patient acknowledged, consented, and participated in this virtual visit which was conducted using real time audio/video Vital Signs Date Time Temp Pulse Resp B/P (MAP) Pulse Ox O2 Delivery O2 Flow Rate FiO2 08/25/22 09:00 92 25 118/62 (80) 92 High Flow N/C 10.00 08/25/22 08:30 92 29 136/74 (94) 90 High Flow N/C 10.00 08/25/22 08:00 83 25 93 High Flow N/C 10.00 08/25/22 07:30 36.3 08/25/22 07:20 86 08/25/22 07:00 97 27 126/65 (82) 84 High Flow N/C 10.00 08/25/22 07:00 95 9 126/65 (85) 92 High Flow N/C 10.00 08/25/22 06:24 94 High Flow N/C 10.00 08/25/22 06:00 90 28 129/78 (95) 100 NIV Bilevel 40.00 08/25/22 05:00 89 24 124/72 (88) 97 NIV Bilevel 50.00 08/25/22 04:00 96 26 125/77 (96) 97 08/25/22 03:50 37.2 08/25/22 03:40 NIV Bilevel 70 08/25/22 03:00 93 28 121/70 (81) 98 08/25/22 02:06 97 32 97 65.00 08/25/22 02:00 102 30 104/78 (87) 94 NIV Bilevel 70.00 08/25/22 01:00 96 38 136/74 (94) 97 08/25/22 01:00 109 08/25/22 00:11 121 32 126/78 (90) 94 08/25/22 00:00 NIV Bilevel 70 08/24/22 23:48 37.3 08/24/22 23:00 109 30 139/80 (111) 92 08/24/22 22:06 111 26 98 65.00 08/24/22 22:00 117 24 123/83 (101) 99 08/24/22 21:00 105 32 126/69 (88) 99 NIV Bilevel 70.00 08/24/22 20:00 126 31 127/71 (101) 93 08/24/22 19:30 37.0 08/24/22 19:25 NIV Bilevel 70.00 08/24/22 19:25 NIV Bilevel 70 08/24/22 19:16 101 33 92 70.00 08/24/22 19:00 108 08/24/22 19:00 111 33 122/77 (81) 94 08/24/22 18:00 146 23 124/109 (114) 90 High Flow N/C 8.50 08/24/22 17:00 121 26 105/88 (94) 90 High Flow N/C 8.50 08/24/22 16:00 High Flow N/C 15.00 30 08/24/22 16:00 125 33 102/78 (86) 93 High Flow N/C 8.50 08/24/22 15:15 94 High Flow N/C 10.00 08/24/22 15:00 116 32 119/84 (96) 90 High Flow N/C 8.50 08/24/22 14:00 102 25 133/86 (102) 92 High Flow N/C 8.50 08/24/22 13:03 103 08/24/22 13:00 112 28 134/81 (98) 95 NIV Bilevel 30.00 08/24/22 13:00 111 20 126/78 (94) 96 High Flow N/C 8.50 08/24/22 12:00 114 31 137/88 (104) 87 NIV Bilevel 30.00 08/24/22 12:00 High Flow N/C 15.00 30 08/24/22 12:00 36.8 Nasal Cannula 8.50 08/24/22 11:00 93 25 124/68 (86) 96 NIV Bilevel 30.00 08/24/22 10:07 95 High Flow N/C 10.00 08/24/22 10:00 84 26 116/70 (85) 95 NIV Bilevel 30.00 I & O 08/25/22 07:00 Intake Total 1000 ml Output Total 2675 ml Balance -1675 ml Height & Weight Height: 5'1.00" Weight: 154lbs. 5.0oz. 69.338920qg; 28.20 BMI Method: General Appearance: No Apparent Distress HEENT: PERRL/EOMI Neck: JVD Respiratory: Decreased Breath Sounds, Other (on BiPAP) Cardiovascular: No Murmur, Irregularly Irregular Capillary Refill: Less Than 3 Seconds Gastrointestinal: normal bowel sounds, non tender Extremity: No Pedal Edema Neurologic/Psychiatric: Alert Skin: Normal Color, Warm/Dry Results Lab Laboratory Tests 08/24/22 03:44 08/25/22 03:29 Assessment/Plan Assessment/Plan See free text. Critical Care: Critically Ill Patient SADE BUTLER MD Aug 25, 2022 09:18
--- NOTE | 2022-08-25 10:43 | Progress Note - Hospitalist ---
Subjective HPI/CC On Admission Date Seen by Provider: Aug 25, 2022 Subjective/Events-last exam Pt off BiPAP. Still just shakes head yes and no to communicate. Shakes head no when asked about pain. No family at bedside. Discussed with Dr Shah today. Focused Exam Time of Focused Exam: 18:50 Objective Exam Vital Signs Vital Signs Date Time Temp Pulse Resp B/P (MAP) Pulse Ox O2 Delivery O2 Flow Rate FiO2 08/25/22 09:00 92 25 118/62 (80) 92 High Flow N/C 10.00 08/25/22 08:00 70 08/25/22 07:30 36.3 Capillary Refill : Less Than 3 Seconds General Appearance: No Apparent Distress Respiratory: Lungs Clear, No Respiratory Distress Cardiovascular: Regular Rate, Rhythm, No Murmur Gastrointestinal: Normal Bowel Sounds, Non Tender, Soft Neurologic/Psychiatric: Alert Results/Procedures Lab Laboratory Tests 08/25/22 03:29 Patient resulted labs reviewed. Imaging: Reviewed Imaging Films, Reviewed Imaging Report Assessment/Plan Assessment and Plan Assess & Plan/Chief Complaint Acute respiratory failure with hypoxia Severe sepsis Acute on chronic heart failure UTI [place] on CKD Afib with RVR CXR with pulmonary venous congestion, no discrete infiltrate Continue IV Vanc, repeat blood cultures pending Cardiology consulted, appreciate recs Continue oral cardizem and metoprolol, rate controlled Speech eval- pureed and thin liquids BiPAP overnight- will repeat Lasix dose given good response (-1.3L yesterday) Creatinine stable PT/OT Social work consulted, will likely need SNF placement upon DC If does well off BiPAP, transfer out of ICU tomorrow Critical Care Critically Ill Patient MANDY DIA MD Aug 25, 2022 10:43
[2022-08-25] MEDS ORDERED: FUROSEMIDE 40 MG/4 ML INJ (LASIX) IVP NR (10:54)
[2022-08-25] MEDS: VANCOMYCIN 500 MG/NS 100 ML IV SCH ×2 (11:00)
[2022-08-25] MEDS: dilTIAZem DRIP PRE-MIX 125 ML IV SCH (11:15)
--- NOTE | 2022-08-25 13:03 | Speech Therapy Daily Note ---
Speech Daily Progress Note Subjective Date Seen by Provider: Aug 25, 2022 Time Seen by Provider: 12:15 The patient was seated upright in her bed, awake and alert, upon entrance to her room by the clinician. The patient greeted the patient appropriately and nodded her head "yes" to agree to participation in the skilled dysphagia therapy session. Objective The patient self-fed applesauce (via bowl), iced tea, and Ensure. The clinician provided teaspoons of pudding and saltine crackers. The patient did not display s/s of suspected aspiration with any consistency tested. Appropriate and timely mastication of the solid consistency was displayed. Per patient's RN, the patient has not experienced oropharyngeal swallowing concerns or difficulties. Recommendations: - Regular consistency diet with thin liquids, as tolerated. - Fully upright and alert for P.O. intake. - Small, single bites and sips. - Feeding assistance and meal set-up, as needed. - Crush medication and place in puree for administration. - Monitor for s/s of suspected aspiration with P.O. intake. If demonstrated, please contact speech pathology. The recommendations were provided to the patient and the RN following completion of the treatment session. Assessment Assessment Current Status: Good Progress Treatment Plan Continue Plan of Care Speech Short Term Goals Short Term Goals Short Term Goals 1. The patient, staff, and family members will demonstrate safe swallowing practices with 80% accuracy, independently. Time Frame-STG: Three Days. Speech Fpc Goals Rn Or Lpn Goals 1. The patient will tolerate the least restrictive diet consistency without s/s of suspected aspiration. Time Frame: One Week. Speech-Plan Treatment Plan Speech Therapy Treatment Plan: Continue Plan of Care Treatment Duration: August 23, 2022 Frequency: 4 times per week Estimated Hrs Per Day: .25 hour per day Rehab Potential: Fair Safety Risks/Education Teaching Recipient: Patient Teaching Methods: Discussion Response to Teaching: Reinforcement Needed Education Topics Provided: Results, Recommendations, Safe Swallowing Precautions Time Speech Therapy Time In: 12:15 Speech Therapy Time Out: 12:35 DATE: Aug 25, 2022 Total Billed Time: 20 Billed Treatment Time SEBASTIAN Patterson ELIZALITZY LUIS Aug 25, 2022 13:03
[2022-08-25 13:59] VITALS: BP 151/80
[2022-08-25] MEDS: RIVAROXABAN 15 MG TABLET (XARELTO) PO SCH (18:00)
[2022-08-25] MEDS: AtorvaSTATin TABLET 10 MG TABLET PO SCH (20:43)
[2022-08-26 02:53] VITALS: BP 107/74
[2022-08-26 04:53] LABS: BASOPHILS # (AUTO) 0.1 10^3/uL (0.0-0.1); BASOPHILS % (AUTO) 1 % (0-10); EOSINOPHILS # (AUTO) 0.1 10^3/uL (0.0-0.3); EOSINOPHILS % (AUTO) 1 % (0-10); HEMATOCRIT 26 % (35-52); HEMOGLOBIN 8.4 g/dL (11.5-16.0); LYMPHOCYTES # (AUTO) 1.7 10^3/uL (1.0-4.0); LYMPHOCYTES % (AUTO) 16 % (12-44); MEAN CORPUSCULAR HEMOGLOBIN 31 pg (25-34); MEAN CORPUSCULAR HGB CONC 32 g/dL (32-36); MEAN CORPUSCULAR VOLUME 99 fL (80-99); MONOCYTES # (AUTO) 1.2 10^3/uL (0.0-1.0); MONOCYTES % (AUTO) 12 % (0-12); NEUTROPHILS # (AUTO) 7.4 10^3/uL (1.8-7.8); NEUTROPHILS % (AUTO) 70 % (42-75); PLATELET COUNT 180 10^3/uL (130-400); WHITE BLOOD COUNT 10.6 10^3/uL (4.3-11.0)
[2022-08-26 05:07] LABS: ALBUMIN 2.8 GM/DL (3.2-4.5)
[2022-08-26 05:08] LABS: CALCIUM 8.5 MG/DL (8.5-10.1)
[2022-08-26 05:09] LABS: TOTAL PROTEIN 7.3 GM/DL (6.4-8.2)
[2022-08-26 05:11] LABS: BILIRUBIN,TOTAL 0.3 MG/DL (0.1-1.0)
[2022-08-26 05:13] LABS: CREATININE SERUM 1.42 MG/DL (0.60-1.30)
[2022-08-26 05:16] LABS: MAGNESIUM 2.2 MG/DL (1.6-2.4)
[2022-08-26] MEDS: inSUlin ASPART (NovoLOG) 1 UNIT/0.01 ML (CHARGE PER UNIT) SC SCH ×3 (06:09→17:55)
[2022-08-26] MEDS: MAGNESIUM 1 GM/100 ML IVPB 100 ML IV SCH (06:15)
[2022-08-26] MEDS: POTASSIUM CL 10MEQ/50ML IVPB 50 ML IV SCH (06:15)
[2022-08-26] MEDS: KCL 20 MEQ TAB (K-DUR) PO SCH (06:16)
[2022-08-26] MEDS: LEVOTHYROXINE 100 MCG (LEVOTHROID) TAB PO SCH (06:18)
[2022-08-26] MEDS: RT-ALBUTEROL/IPRATROPIUM 3 ML (DUONEB) VIAL INH SCH ×3 (06:46→14:37)
[2022-08-26] MEDS: FAMOTIDINE 20 MG (PEPCID) TABLET PO SCH (08:46)
[2022-08-26] MEDS: DIGOXIN 0.125 MG (LANOXIN) TAB PO SCH (08:46)
[2022-08-26] MEDS: meTOprolol TARTRATE 25 MG (LOPRESSOR) TABLET PO SCH ×2 (08:46→21:48)
[2022-08-26] MEDS: SENNOSIDES 8.6 MG (SENOKOT) TAB PO SCH ×2 (08:46→21:48)
[2022-08-26] MEDS: DOCUSATE SODIUM 10 MG/ML 10 ML UDC (COLACE) PO SCH (08:47)
--- NOTE | 2022-08-26 09:27 | Tele-ICU Progress Note ---
Subjective Date Seen by a Provider: Aug 26, 2022 Subjective/Events-last exam his virtual visit was conducted using real time audio/video. Thank you for asking us to see this patient for respiratory insufficiency due to AECOPD/CHF and AMS. Also urosepsis, controlled afib, pulm. htn PE: VSS. O2 sat 94% on 10 LPM. HEENT: No obvious masses, adenopathy or JVD. Chest: coarse on auscultation. CV: Irreg. S1 S2 No murmur or added sounds. Abd: Non-tender. Bowel sounds Y. : Unremarkable. Xavier Y. REQUIREMENTS MANAGER/psychiatric: Grossly intact. No obvious focal findings. Extremities: 1+ edema. Capillary refill < 3 seconds. Skin: unremarkable. Results: Elevated BUN 27, BG 101. Decreased Hb 8.4. CXR: Hyperinflated, cardiomeg., congestion improved. Available chart/ vitals / labs / images reviewed. Video assessment done using teleICU camera, rest of exam as per RN. A/P: Respiratory insufficiency: Continue present management with O2, PRN BiPAP, duonebs Monitor for increasing oxygenation needs. DNR. Consider lower level of care if not requiring BiPAP. Critical Care: critically ill patient. Cont.Xarelto, abx, dig., pepcid, statin, metop., SSI. Discussed with DANIE Joy. Asked RN to reach out to eICU if any questions or concerns later. Time spent with patient/coordination of care with other health professionals (mins): 24 Sepsis Event Evaluation Height, Weight, BMI Height: 5'1.00" Weight: 154lbs. 5.0oz. 69.883928ho; 28.20 BMI Method: Focused Exam Time of Focused Exam: 18:50 Exam Exam Patient acknowledged, consented, and participated in this virtual visit which was conducted using real time audio/video Vital Signs Date Time Temp Pulse Resp B/P (MAP) Pulse Ox O2 Delivery O2 Flow Rate FiO2 08/26/22 09:09 High Flow N/C 12.00 08/26/22 09:00 80 20 140/104 (116) 90 High Flow N/C 10.00 08/26/22 08:20 High Flow N/C 10.00 08/26/22 08:00 37.6 08/26/22 08:00 82 12 130/80 (97) 97 High Flow N/C 12.00 08/26/22 07:35 97 Room Air 12.00 08/26/22 07:00 80 08/26/22 07:00 85 25 127/76 (93) 90 High Flow N/C 12.00 08/26/22 07:00 High Flow N/C 12.00 08/26/22 06:46 95 High Flow N/C 12.00 08/26/22 06:00 75 26 144/77 (99) 94 NIV Bilevel 40.00 08/26/22 05:00 72 22 111/66 (85) 94 08/26/22 04:14 NIV Bilevel 40 08/26/22 04:00 36.2 81 24 117/73 (90) 93 08/26/22 04:00 86 16 117/73 (88) 91 NIV Bilevel 40.00 08/26/22 03:00 88 22 118/72 (76) 92 08/26/22 02:53 87 35 95 40.00 08/26/22 02:00 96 17 107/74 (81) 93 08/26/22 01:00 80 28 115/64 (81) 93 08/26/22 01:00 100 08/26/22 00:00 36.1 90 26 125/73 (90) 92 NIV Bilevel 40.00 08/25/22 23:36 NIV Bilevel 40 08/25/22 23:00 105 28 134/75 (94) 90 08/25/22 22:00 97 26 118/67 (75) 96 08/25/22 21:00 96 23 140/86 (92) 96 High Flow N/C 10.00 08/25/22 20:00 85 17 139/72 (79) 91 08/25/22 19:30 High Flow N/C 10.00 08/25/22 19:05 96 High Flow N/C 15.00 08/25/22 19:00 112 08/25/22 19:00 98 30 140/98 (111) 100 High Flow N/C 10.00 08/25/22 18:00 102 30 144/65 (91) 93 High Flow N/C 10.00 08/25/22 17:00 92 17 118/74 (89) 94 High Flow N/C 10.00 08/25/22 16:00 77 33 124/68 (86) 92 High Flow N/C 10.00 08/25/22 16:00 NIV Bilevel 70 08/25/22 15:00 99 26 120/77 (91) 91 High Flow N/C 10.00 08/25/22 14:00 79 30 137/77 (94) 93 High Flow N/C 10.00 08/25/22 13:59 84 33 94 40.00 08/25/22 13:00 75 28 159/95 (116) 94 High Flow N/C 10.00 08/25/22 12:28 68 08/25/22 12:00 77 33 124/68 (86) 92 High Flow N/C 10.00 08/25/22 12:00 NIV Bilevel 70 08/25/22 11:23 36.5 08/25/22 11:00 70 29 128/75 (92) 90 High Flow N/C 10.00 08/25/22 10:00 82 21 128/68 (88) 92 High Flow N/C 10.00 I & O 08/26/22 07:00 Intake Total 1410 ml Output Total 3025 ml Balance -1615 ml Height & Weight Height: 5'1.00" Weight: 154lbs. 5.0oz. 69.475498qd; 28.20 BMI Method: General Appearance: No Apparent Distress HEENT: PERRL/EOMI Neck: JVD Respiratory: Lungs Clear, No Respiratory Distress Cardiovascular: Regular Rate, Rhythm, No Murmur Capillary Refill: Less Than 3 Seconds Gastrointestinal: normal bowel sounds, non tender Extremity: No Pedal Edema Neurologic/Psychiatric: Alert Skin: Normal Color, Warm/Dry Results Lab Laboratory Tests 08/25/22 03:29 08/26/22 04:18 Assessment/Plan Assessment/Plan See free text. Critical Care: Critically Ill Patient SADE BUTLER MD Aug 26, 2022 09:27
--- NOTE | 2022-08-26 11:11 | Progress Note - Hospitalist ---
Subjective HPI/CC On Admission Date Seen by Provider: Aug 26, 2022 Subjective/Events-last exam Pt reports doing well. Remains alert. Denies any needs. Focused Exam Time of Focused Exam: 18:50 Objective Exam Vital Signs Vital Signs Date Time Temp Pulse Resp B/P (MAP) Pulse Ox O2 Delivery O2 Flow Rate FiO2 08/26/22 10:52 95 High Flow N/C 3.00 08/26/22 10:00 96 24 132/117 (122) 08/26/22 08:00 37.6 08/26/22 04:14 40 Capillary Refill : Less Than 3 Seconds General Appearance: No Apparent Distress, Chronically ill Respiratory: No Accessory Muscle Use, Other (on HFNC) Cardiovascular: No Murmur, Irregularly Irregular Gastrointestinal: Normal Bowel Sounds, Non Tender, Soft Neurologic/Psychiatric: Alert, Other (seems oriented when asked yes or no questions) Results/Procedures Lab Laboratory Tests 08/26/22 04:18 Patient resulted labs reviewed. Imaging: Reviewed Imaging Films, Reviewed Imaging Report Assessment/Plan Assessment and Plan Assess & Plan/Chief Complaint Acute respiratory failure with hypoxia Severe sepsis Acute on chronic heart failure UTI [place] on CKD Afib with RVR CXR with pulmonary venous congestion, no discrete infiltrate Continue IV Vancomycin as has cleared bacteremia Cardiology consulted, appreciate recs Continue oral cardizem and metoprolol, rate controlled Speech eval- regular diet BiPAP overnight again, repeat Lasix Creatinine improving PT/OT Social work consulted, will likely need SNF placement upon DC Consider swing bed for IV abx Critical Care Critically Ill Patient MANDY DIA MD Aug 26, 2022 11:11
[2022-08-26] MEDS ORDERED: FUROSEMIDE 40 MG/4 ML INJ (LASIX) IVP NR (11:14)
[2022-08-26] MEDS: dilTIAZem DRIP PRE-MIX 125 ML IV SCH (11:29)
[2022-08-26] MEDS: VANCOMYCIN 500 MG/NS 100 ML IV SCH ×2 (11:37)
--- NOTE | 2022-08-26 13:25 | Progress Note - Cardiology ---
Cardiology SOAP Progress Note Subjective: Sitting up in bed Does not answer questions No visible signs of distress Objective: I&O/Vital Signs 08/29/22 08/29/22 08/30/22 08/30/22 22:03 23:27 02:37 03:00 Temp 36.6 36.6 Pulse 94 94 Resp 16 B/P (MAP) 125/69 (87) Pulse Ox 92 92 90 92 O2 Delivery High Flow N/C High Flow N/C High Flow N/C O2 Flow Rate 4.00 4.00 4.00 4.00 FiO2 36 08/30/22 08/30/22 08/30/22 03:27 06:40 07:43 Temp 36.6 36.4 Pulse 94 88 Resp 16 18 B/P (MAP) 123/68 (86) 119/62 (81) Pulse Ox 90 95 95 O2 Delivery High Flow N/C High Flow N/C High Flow N/C O2 Flow Rate 4.50 4.00 4.00 08/30/22 00:00 Intake Total 880 ml Output Total 750 ml Balance 130 ml Weight (Pounds): 154 Weight (Ounces): 5.0 Weight (Calculated Kilograms): 69.081676 Constitutional: other (responds to name when called; unable to assess otherwise as she does provide any information) Respiratory: No accessory muscle use, No respiratory distress; chest expansion is symmetric, chest is bilaterally symmetric, other (diminished lower lobes bilat) Cardiovascular: irregularly irregular; No JVD; S1 and S2 Gastrointestional: No tender; soft; No guarding; audible bowel sounds Extremities: no lower extremity edema bilateral Neurologic/Psychiatric: other (moves all extremities) Skin: normal color, warm/dry Results/Procedures: Labs Laboratory Tests 08/29/22 15:49: Glucometer 252H 08/29/22 21:20: Glucometer 96 08/30/22 05:11: White Blood Count 11.2H, Red Blood Count 2.59L, Hemoglobin 8.0L, Hematocrit 25L, Mean Corpuscular Volume 97, Mean Corpuscular Hemoglobin 31, Mean Corpuscular Hemoglobin Concent 32, Red Cell Distribution Width 14.6H, Platelet Count 254, Mean Platelet Volume 9.6, Immature Granulocyte % (Auto) 1, Neutrophils (%) (Auto) 75, Lymphocytes (%) (Auto) 16, Monocytes (%) (Auto) 7, Eosinophils (%) (Auto) 1, Basophils (%) (Auto) 0, Neutrophils # (Auto) 8.4H, Lymphocytes # (Auto) 1.8, Monocytes # (Auto) 0.8, Eosinophils # (Auto) 0.2, Basophils # (Auto) 0.0, Immature Granulocyte # (Auto) 0.1, Sodium Level 135, Potassium Level 4.5, Chloride Level 104, Carbon Dioxide Level 24, Anion Gap 7, Blood Urea Nitrogen 32H, Creatinine 1.43H, Estimat Glomerular Filtration Rate 35, BUN/Creatinine Ratio 22, Glucose Level 94, Calcium Level 8.7, Corrected Calcium 9.7, Magnesium Level 2.1, Total Bilirubin 0.5, Aspartate Amino Transf (AST/SGOT) 18, Alanine Aminotransferase (ALT/SGPT) 23, Alkaline Phosphatase 76, Total Protein 7.4, Albumin 2.8L 08/30/22 05:22: Glucometer 94 Microbiology 08/24/22 Blood Culture - Final, Complete No growth 08/20/22 Urine Culture - Final, Complete Escherichia coli Procedures NAME: [facility] REC#: [id number] PT STATUS: ADM IN : [id number] PHYSICIAN: WALLY POPE MD ADMIT DATE: 08/20/22/ICU Signed Date of Exam:08/24/22 CHEST 1 VIEW, AP/PA ONLY Indication: Respiratory failure Portable chest 5:09 AM There is cardiomegaly with pulmonary vascular congestion. There are medial basilar infiltrates. There is no appreciable effusion or pneumothorax. IMPRESSION: Cardiomegaly with pulmonary venous hypertension. There are bilateral medial basilar infiltrates that could be edema versus inflammatory. Overall aeration appears slightly improved compared to the previous day. Dictated by: Dictated on workstation # [id number] Dict: 08/24/22 0533 Trans: 08/24/2235 [facility] [id number] Interpreted by: CHHAYA PEREA MD Electronically signed by: CHHAYA PEREA MD 08/24/2235 A/P: Assessment: Acute change in mental status, - Probably secondary to sepsis and hypoxemia - Managed by medical team UTI/sepsis - managed by primary care team Acute renal insufficiency - improving Atrial fibrillation, rate is controlled - Continue Cardizem and dig - Change to Xarelto COPD - acute exacerbation Congestive heart failure, chronic compensated left ventricular diastolic dysfunction with ejection fraction 50% Unable to tolerate JACINTO inhibitor and/or ARB due to hypotension 2D Echo done on August 21, 2022 with ejection fraction 65%, severe pulmonary hypertension with PA 70 to 75 mmHg, dilated right heart chambers with wide open tricuspid regurgitation Pulmonary HTN - Echo of 08-21-[address] Shah showed PASP 70-75 mmHg Coronary artery disease, Last cardiac catheterization done in 2010 reporting minor disease nonobstructive disease Conservative management is recommended Hypertension, controlled Monitor blood pressure History of CVA in the past. Mild bilateral carotid stenosis Hyperlipidemia Hypothyroidism followed and managed by primary care physician History of syncope Peripheral edema History of tobaccoism in the past. Plan: Management of UTI with sepsis per medical services Mental status change managed by medical services A-fib with controlled rate - continue current dose of Dig and Cardizem - check dig level - continue xarelto for stroke prophylaxis Monitor lab Replace electrolytes as indicated Dr. Shah's notes have been reviewed FRANCESCA OSEGUERA Aug 26, 2022 13:25
[2022-08-26 15:12] VITALS: BP 134/74
[2022-08-26] MEDS: RIVAROXABAN 15 MG TABLET (XARELTO) PO SCH (17:55)
--- NOTE | 2022-08-26 18:36 | Progress Note - Cardiology ---
Cardiology SOAP Progress Note Subjective: She is poorly communicative. As far as we can determine, she reports the following: No cp or palp or syncope No shortness of breath at rest No n/v/d No focal weakness Gen weakness and malaise present Objective: I&O/Vital Signs 08/26/22 08/26/22 08/26/22 08/26/22 06:46 07:00 07:00 07:00 Pulse 85 80 Resp 25 B/P (MAP) 127/76 (93) Pulse Ox 95 90 O2 Delivery High Flow N/C High Flow N/C High Flow N/C O2 Flow Rate 12.00 12.00 12.00 08/26/22 08/26/22 08/26/22 08/26/22 07:35 08:00 08:00 08:20 Temp 37.6 Pulse 82 Resp 12 B/P (MAP) 130/80 (97) Pulse Ox 97 97 O2 Delivery Room Air High Flow N/C High Flow N/C O2 Flow Rate 12.00 12.00 10.00 08/26/22 08/26/22 08/26/22 08/26/22 09:00 09:09 10:00 10:52 Pulse 80 96 Resp 20 24 B/P (MAP) 140/104 (116) 132/117 (122) Pulse Ox 90 91 95 O2 Delivery High Flow N/C High Flow N/C High Flow N/C High Flow N/C O2 Flow Rate 10.00 12.00 12.00 3.00 08/26/22 08/26/22 08/26/22 08/26/22 10:54 11:00 11:58 12:00 Temp 36.7 Pulse 80 Resp 23 B/P (MAP) 134/74 (94) Pulse Ox 90 97 O2 Delivery High Flow N/C High Flow N/C High Flow N/C O2 Flow Rate 3.00 3.00 3.00 08/26/22 08/26/22 08/26/22 08/26/22 12:00 13:00 13:00 14:00 Pulse 87 85 85 82 Resp 27 24 24 B/P (MAP) 115/75 (88) 140/70 (93) 120/92 (101) Pulse Ox 91 91 91 O2 Delivery High Flow N/C High Flow N/C High Flow N/C O2 Flow Rate 3.00 3.00 3.00 08/26/22 08/26/22 08/26/22 08/26/22 15:00 15:12 15:36 16:00 Temp 36.7 36.8 Pulse 95 85 94 Resp 26 25 B/P (MAP) 135/99 (111) 141/85 (103) Pulse Ox 90 97 90 O2 Delivery High Flow N/C High Flow N/C O2 Flow Rate 3.00 3.00 FiO2 60 08/26/22 08/26/22 08/26/22 16:28 17:00 18:00 Pulse 91 105 Resp 27 29 B/P (MAP) 140/79 (99) 126/117 (120) Pulse Ox 94 94 90 O2 Delivery High Flow N/C High Flow N/C High Flow N/C O2 Flow Rate 3.00 3.00 3.00 08/26/22 00:00 Intake Total 460 ml Output Total 1725 ml Balance -1265 ml Weight (Pounds): 154 Weight (Ounces): 5.0 Weight (Calculated Kilograms): 69.549359 Constitutional: other (responds to name when called; unable to assess otherwise as she provides little information) Respiratory: No accessory muscle use, No respiratory distress; chest expansion is symmetric, chest is bilaterally symmetric, other (diminished lower lobes bilat) Cardiovascular: irregularly irregular; No JVD; S1 and S2 Gastrointestional: No tender; soft; No guarding; audible bowel sounds Extremities: no lower extremity edema bilateral Neurologic/Psychiatric: other (moves all extremities) Skin: normal color, warm/dry Results/Procedures: Labs Laboratory Tests 08/25/22 23:31: Glucometer 106 08/26/22 04:18: White Blood Count 10.6, Red Blood Count 2.68L, Hemoglobin 8.4L, Hematocrit 26L, Mean Corpuscular Volume 99, Mean Corpuscular Hemoglobin 31, Mean Corpuscular Hemoglobin Concent 32, Red Cell Distribution Width 15.4H, Platelet Count 180, Mean Platelet Volume 10.0, Immature Granulocyte % (Auto) 1, Neutrophils (%) (Auto) 70, Lymphocytes (%) (Auto) 16, Monocytes (%) (Auto) 12, Eosinophils (%) (Auto) 1, Basophils (%) (Auto) 1, Neutrophils # (Auto) 7.4, Lymphocytes # (Auto) 1.7, Monocytes # (Auto) 1.2H, Eosinophils # (Auto) 0.1, Basophils # (Auto) 0.1, Immature Granulocyte # (Auto) 0.1, Sodium Level 134L, Potassium Level 4.0, Chloride Level 100, Carbon Dioxide Level 25, Anion Gap 9, Blood Urea Nitrogen 27H, Creatinine 1.42H, Estimat Glomerular Filtration Rate 35, BUN/Creatinine Ratio 19, Glucose Level 101, Calcium Level 8.5, Corrected Calcium 9.5, Magnesium Level 2.2, Total Bilirubin 0.3, Aspartate Amino Transf (AST/SGOT) 21, Alanine Aminotransferase (ALT/SGPT) 23, Alkaline Phosphatase 66, Total Protein 7.3, Albumin 2.8L 08/26/22 12:16: Glucometer 116H 08/26/22 17:33: Glucometer 116H Microbiology 08/24/22 Blood Culture - Preliminary, Resulted No growth 08/20/22 Urine Culture - Final, Complete Escherichia coli Laboratory Tests 08/25/22 03:29 08/26/22 04:18 A/P: Assessment: Acute change in mental status, - Probably secondary to sepsis and hypoxemia - Managed by medical team UTI/sepsis - managed by primary care team Acute renal insufficiency - improving Atrial fibrillation, rate is controlled - Continue Cardizem and dig - Change to Xarelto COPD - acute exacerbation Congestive heart failure, chronic compensated left ventricular diastolic dysfunction with ejection fraction 50% Unable to tolerate JACINTO inhibitor and/or ARB due to hypotension 2D Echo done on August 21, 2022 with ejection fraction 65%, severe pulmonary hypertension with PA 70 to 75 mmHg, dilated right heart chambers with wide open tricuspid regurgitation Pulmonary HTN - Echo of 08-21-[address] Shah showed PASP 70-75 mmHg Coronary artery disease, Last cardiac catheterization done in 2010 reporting minor disease nonobstructive disease Conservative management is recommended Hypertension, controlled Monitor blood pressure History of CVA in the past. Mild bilateral carotid stenosis Hyperlipidemia Hypothyroidism followed and managed by primary care physician History of syncope Peripheral edema History of tobaccoism in the past. Plan: Management of UTI with sepsis per medical services Mental status change managed by medical services A-fib with controlled rate - continue current dose of Dig and Cardizem - check dig level - continue Xarelto for stroke prophylaxis Monitor lab Replace electrolytes as indicated Dr. Shah's notes have been reviewed MARIA ANTONIA GAUTHIER MD FACP FACC CCDS Aug 26, 2022 18:36
[2022-08-26] MEDS: DOCUSATE SODIUM 100 MG (COLACE) CAP PO SCH (21:48)
[2022-08-26] MEDS: AtorvaSTATin TABLET 10 MG TABLET PO SCH (21:48)
[2022-08-27] MEDS: inSUlin ASPART (NovoLOG) 1 UNIT/0.01 ML (CHARGE PER UNIT) SC SCH ×5 (01:01→21:08)
[2022-08-27 02:38] VITALS: BP 111/70
[2022-08-27] MEDS: KCL 20 MEQ TAB (K-DUR) PO SCH (05:09)
[2022-08-27] MEDS: MAGNESIUM 1 GM/100 ML IVPB 100 ML IV SCH (05:09)
[2022-08-27] MEDS: POTASSIUM CL 10MEQ/50ML IVPB 50 ML IV SCH (05:09)
[2022-08-27 06:16] VITALS: BP 115/70
[2022-08-27] MEDS: LEVOTHYROXINE 100 MCG (LEVOTHROID) TAB PO SCH (06:31)
[2022-08-27] MEDS: DIGOXIN 0.125 MG (LANOXIN) TAB PO SCH (08:04)
[2022-08-27] MEDS: FAMOTIDINE 20 MG (PEPCID) TABLET PO SCH (08:04)
[2022-08-27] MEDS: meTOprolol TARTRATE 25 MG (LOPRESSOR) TABLET PO SCH ×2 (08:04→20:02)
[2022-08-27] MEDS: SENNOSIDES 8.6 MG (SENOKOT) TAB PO SCH ×2 (08:04→20:02)
[2022-08-27] MEDS: DOCUSATE SODIUM 100 MG (COLACE) CAP PO SCH ×2 (08:04→20:02)
[2022-08-27] MEDS ORDERED: TROUGH ORDER-PHARMACY XX ONE (10:00)
[2022-08-27 10:34] LABS: BASOPHILS % (AUTO) 0 % (0-10); EOSINOPHILS # (AUTO) 0.1 10^3/uL (0.0-0.3); EOSINOPHILS % (AUTO) 1 % (0-10); HEMATOCRIT 25 % (35-52); LYMPHOCYTES # (AUTO) 2.1 10^3/uL (1.0-4.0); LYMPHOCYTES % (AUTO) 22 % (12-44); MEAN CORPUSCULAR HEMOGLOBIN 31 pg (25-34); MEAN CORPUSCULAR HGB CONC 32 g/dL (32-36); MEAN CORPUSCULAR VOLUME 97 fL (80-99); MEAN PLATELET VOLUME 9.7 fL (9.0-12.2); MONOCYTES # (AUTO) 0.9 10^3/uL (0.0-1.0); MONOCYTES % (AUTO) 9 % (0-12); NEUTROPHILS # (AUTO) 6.6 10^3/uL (1.8-7.8); NEUTROPHILS % (AUTO) 67 % (42-75); PLATELET COUNT 193 10^3/uL (130-400); WHITE BLOOD COUNT 9.8 10^3/uL (4.3-11.0)
[2022-08-27 10:48] LABS: ALBUMIN 2.7 GM/DL (3.2-4.5)
[2022-08-27 10:49] LABS: POTASSIUM 3.9 MMOL/L (3.6-5.0)
[2022-08-27 10:50] LABS: CALCIUM 8.4 MG/DL (8.5-10.1)
[2022-08-27 10:51] LABS: TOTAL PROTEIN 7.2 GM/DL (6.4-8.2)
[2022-08-27 10:53] LABS: BILIRUBIN,TOTAL 0.4 MG/DL (0.1-1.0)
[2022-08-27 10:54] LABS: CREATININE SERUM 1.49 MG/DL (0.60-1.30)
--- NOTE | 2022-08-27 11:18 | Progress Note - Hospitalist ---
Subjective HPI/CC On Admission Date Seen by Provider: Aug 27, 2022 Subjective/Events-last exam Pt alert today. Just mouths words but mouthed no when asked if she was in pain or if she needed anything. When asked how she was doing she appeared to mouth 'I don't know." I called and spoke with her daughter, Pham, and updated her on labs and plan to transfer to [facility]. Focused Exam Time of Focused Exam: 18:50 Objective Exam Vital Signs Vital Signs Date Time Temp Pulse Resp B/P (MAP) Pulse Ox O2 Delivery O2 Flow Rate FiO2 08/27/22 08:06 36.6 Nasal Cannula 3.00 08/27/22 08:00 99 20 121/113 (119) 90 08/26/22 15:12 60 Capillary Refill : Less Than 3 Seconds General Appearance: No Apparent Distress, Chronically ill Respiratory: Lungs Clear, Other (on 3lpm) Cardiovascular: Irregularly Irregular Gastrointestinal: Normal Bowel Sounds, Soft Neurologic/Psychiatric: Other (alert, appears oriented to major details with the questions she answer but doesn't speak) Results/Procedures Lab Laboratory Tests 08/27/22 10:24 Patient resulted labs reviewed. Imaging: Reviewed Imaging Films, Reviewed Imaging Report Assessment/Plan Assessment and Plan Assess & Plan/Chief Complaint Acute respiratory failure with hypoxia Severe sepsis Acute on chronic heart failure UTI [place] on CKD Afib with RVR CXR with pulmonary venous congestion, no discrete infiltrate BiPAP prn HS but down to 3lpm Continue IV Vancomycin as has cleared bacteremia Cardiology consulted, appreciate recs Continue oral cardizem and metoprolol, rate controlled Speech eval- regular diet Creatinine improving PT/OT Social work consulted, will likely need SNF placement upon DC referral sent to [facility] Transfer to [facility] Critical Care Critically Ill Patient MANDY DIA MD Aug 27, 2022 11:18
[2022-08-27] MEDS: VANCOMYCIN 500 MG/NS 100 ML IV SCH ×2 (11:24)
--- NOTE | 2022-08-27 14:19 | Progress Note - Cardiology ---
Cardiology SOAP Progress Note Subjective: Does not verbally respond to questions Does not report any symptoms Objective: I&O/Vital Signs 08/27/22 08/27/22 08/27/22 08/27/22 02:38 02:38 03:00 04:00 Pulse 72 67 Resp 30 26 B/P (MAP) 103/62 (76) Pulse Ox 90 90 96 O2 Delivery NIV Bilevel NIV Bilevel High Flow N/C O2 Flow Rate 40.00 40.00 40.00 3.00 08/27/22 08/27/22 08/27/22 08/27/22 04:00 05:00 06:00 06:16 Pulse 75 69 76 75 Resp 25 28 22 31 B/P (MAP) 107/63 (78) 115/61 (79) 115/70 (85) Pulse Ox 90 93 95 90 O2 Delivery NIV Bilevel NIV Bilevel NIV Bilevel O2 Flow Rate 40.00 40.00 40.00 40.00 08/27/22 08/27/22 08/27/22 08/27/22 07:00 07:00 07:00 07:53 Pulse 77 73 Resp 23 B/P (MAP) 117/65 (83) Pulse Ox 94 93 O2 Delivery Nasal Cannula NIV Bilevel High Flow N/C O2 Flow Rate 3.00 40.00 3.00 08/27/22 08/27/22 08/27/22 08:00 08:06 13:00 Temp 36.6 36.5 Pulse 99 Resp 20 19 B/P (MAP) 121/113 (119) 117/62 (80) Pulse Ox 90 93 O2 Delivery Nasal Cannula Nasal Cannula High Flow N/C O2 Flow Rate 3.00 3.00 2.00 08/27/22 00:00 Intake Total 950 ml Output Total 1275 ml Balance -325 ml Weight (Pounds): 154 Weight (Ounces): 5.0 Weight (Calculated Kilograms): 69.010925 Constitutional: other (responds to name when called; unable to assess otherwise as she provides little information) Respiratory: No accessory muscle use, No respiratory distress; chest expansion is symmetric, chest is bilaterally symmetric, other (diminished lower lobes bilat) Cardiovascular: irregularly irregular; No JVD; S1 and S2 Gastrointestional: No tender; soft; No guarding; audible bowel sounds Extremities: no lower extremity edema bilateral Neurologic/Psychiatric: other (moves all extremities) Skin: normal color, warm/dry Results/Procedures: Labs Laboratory Tests 08/26/22 17:33: Glucometer 116H 08/26/22 20:49: Glucometer 102 08/27/22 06:36: Glucometer 92 08/27/22 10:24: White Blood Count 9.8, Red Blood Count 2.55L, Hemoglobin 8.0L, Hematocrit 25L, Mean Corpuscular Volume 97, Mean Corpuscular Hemoglobin 31, Mean Corpuscular Hemoglobin Concent 32, Red Cell Distribution Width 15.0H, Platelet Count 193, Mean Platelet Volume 9.7, Immature Granulocyte % (Auto) 1, Neutrophils (%) (Auto) 67, Lymphocytes (%) (Auto) 22, Monocytes (%) (Auto) 9, Eosinophils (%) (Auto) 1, Basophils (%) (Auto) 0, Neutrophils # (Auto) 6.6, Lymphocytes # (Auto) 2.1, Monocytes # (Auto) 0.9, Eosinophils # (Auto) 0.1, Basophils # (Auto) 0.0, Immature Granulocyte # (Auto) 0.1, Sodium Level 136, Potassium Level 3.9, Chloride Level 101, Carbon Dioxide Level 27, Anion Gap 8, Blood Urea Nitrogen 31H, Creatinine 1.49H, Estimat Glomerular Filtration Rate 33, BUN/Creatinine Ratio 21, Glucose Level 97, Calcium Level 8.4L, Corrected Calcium 9.4, Total Bilirubin 0.4, Aspartate Amino Transf (AST/SGOT) 17, Alanine Aminotransferase (ALT/SGPT) 23, Alkaline Phosphatase 61, Total Protein 7.2, Albumin 2.7L, Vancomycin Level Trough 10.6, Digoxin Level 1.40 Microbiology 08/24/22 Blood Culture - Preliminary, Resulted No growth 08/20/22 Urine Culture - Final, Complete Escherichia coli Laboratory Tests 08/26/22 04:18 08/27/22 10:24 A/P: Assessment: Acute change in mental status - Probably secondary to sepsis and hypoxemia - [facility], improved - managed by [facility] Acute renal insufficiency - [facility] managin Atrial fibrillation, rate is controlled - Continue Cardizem and dig and Xarelto COPD - acute exacerbation Congestive heart failure, chronic compensated left ventricular diastolic dysfunction with ejection fraction 50% Unable to tolerate JACINTO inhibitor and/or ARB due to hypotension 2D Echo done on August 21, 2022 with ejection fraction 65%, severe pulmonary hypertension with PA 70 to 75 mmHg, dilated right heart chambers with wide open tricuspid regurgitation Pulmonary HTN - Echo of 08-21-[address] Shah showed PASP 70-75 mmHg Coronary artery disease, Last cardiac catheterization done in 2010 reporting minor disease nonobstructive disease Conservative management is recommended Hypertension, controlled Monitor blood pressure History of CVA in the past. Mild bilateral carotid stenosis Hyperlipidemia Hypothyroidism followed and managed by primary care physician History of syncope Peripheral edema History of tobaccoism in the past. Plan: * Dig level rising. Reduce dig * Continue dilt and rivaroxaban * Monitor labs MARIA ANTONIA GAUTHIER MD FACP FAC CCDS Aug 27, 2022 14:19
[2022-08-27] MEDS: RIVAROXABAN 15 MG TABLET (XARELTO) PO SCH (17:28)
[2022-08-27] MEDS: AtorvaSTATin TABLET 10 MG TABLET PO SCH (20:02)
[2022-08-28] MEDS: LEVOTHYROXINE 100 MCG (LEVOTHROID) TAB PO SCH (03:36)
[2022-08-28 04:48] LABS: BASOPHILS % (AUTO) 0 % (0-10); EOSINOPHILS # (AUTO) 0.2 10^3/uL (0.0-0.3); EOSINOPHILS % (AUTO) 2 % (0-10); HEMATOCRIT 25 % (35-52); HEMOGLOBIN 8.1 g/dL (11.5-16.0); LYMPHOCYTES # (AUTO) 1.8 10^3/uL (1.0-4.0); LYMPHOCYTES % (AUTO) 18 % (12-44); MEAN CORPUSCULAR HEMOGLOBIN 32 pg (25-34); MEAN CORPUSCULAR HGB CONC 32 g/dL (32-36); MEAN CORPUSCULAR VOLUME 99 fL (80-99); MEAN PLATELET VOLUME 9.6 fL (9.0-12.2); MONOCYTES # (AUTO) 0.9 10^3/uL (0.0-1.0); MONOCYTES % (AUTO) 9 % (0-12); NEUTROPHILS # (AUTO) 6.9 10^3/uL (1.8-7.8); NEUTROPHILS % (AUTO) 71 % (42-75); PLATELET COUNT 196 10^3/uL (130-400); WHITE BLOOD COUNT 9.8 10^3/uL (4.3-11.0)
[2022-08-28 05:06] LABS: ALBUMIN 2.6 GM/DL (3.2-4.5); POTASSIUM 4.2 MMOL/L (3.6-5.0)
[2022-08-28 05:07] LABS: CALCIUM 8.5 MG/DL (8.5-10.1)
[2022-08-28 05:09] LABS: TOTAL PROTEIN 6.9 GM/DL (6.4-8.2)
[2022-08-28 05:10] LABS: BILIRUBIN,TOTAL 0.4 MG/DL (0.1-1.0)
[2022-08-28 05:12] LABS: CREATININE SERUM 1.44 MG/DL (0.60-1.30)
[2022-08-28] MEDS: inSUlin ASPART (NovoLOG) 1 UNIT/0.01 ML (CHARGE PER UNIT) SC SCH ×4 (05:26→19:58)
[2022-08-28] MEDS: KCL 20 MEQ TAB (K-DUR) PO SCH (05:27)
[2022-08-28] MEDS: POTASSIUM CL 10MEQ/50ML IVPB 50 ML IV SCH (05:27)
[2022-08-28] MEDS: MAGNESIUM 1 GM/100 ML IVPB 100 ML IV SCH ×4 (05:49→08:13)
[2022-08-28] MEDS ORDERED: MAGNESIUM 1 GM/100 ML IVPB 100 ML IV ONE (06:05)
[2022-08-28] MEDS: DIGOXIN 0.125 MG (LANOXIN) TAB PO SCH (09:26)
[2022-08-28] MEDS: SENNOSIDES 8.6 MG (SENOKOT) TAB PO SCH ×2 (09:26→19:52)
[2022-08-28] MEDS: meTOprolol TARTRATE 25 MG (LOPRESSOR) TABLET PO SCH ×2 (09:26→19:52)
[2022-08-28] MEDS: FAMOTIDINE 20 MG (PEPCID) TABLET PO SCH (09:26)
[2022-08-28] MEDS: DOCUSATE SODIUM 100 MG (COLACE) CAP PO SCH ×2 (09:27→19:52)
--- NOTE | 2022-08-28 11:37 | Progress Note - Hospitalist ---
Subjective HPI/CC On Admission Date Seen by Provider: Aug 28, 2022 Subjective/Events-last exam Pt denies any needs. Still just shakes head to respond. RN reports no concerns. Focused Exam Time of Focused Exam: 18:50 Objective Exam Vital Signs Vital Signs Date Time Temp Pulse Resp B/P (MAP) Pulse Ox O2 Delivery O2 Flow Rate FiO2 08/28/22 07:34 36.8 105 18 131/75 (93) 90 Nasal Cannula 3.00 08/28/22 03:04 40 Capillary Refill : Less Than 3 Seconds General Appearance: No Apparent Distress, Chronically ill Respiratory: Lungs Clear, No Accessory Muscle Use, Other (on 3lpm) Cardiovascular: No Murmur, Irregularly Irregular Gastrointestinal: Normal Bowel Sounds, Non Tender, Soft Neurologic/Psychiatric: Alert, Other (only communicates with shaking her head yes and no) Results/Procedures Lab Laboratory Tests 08/28/22 04:42 Patient resulted labs reviewed. Imaging: Reviewed Imaging Films, Reviewed Imaging Report Assessment/Plan Assessment and Plan Assess & Plan/Chief Complaint Acute respiratory failure with hypoxia Severe sepsis Acute on chronic heart failure UTI PHOENIX on CKD Afib with RVR Did well on 3lpm last Continue IV Vancomycin as has cleared bacteremia Cardiology consulted, appreciate recs Continue oral cardizem and metoprolol, rate controlled Speech eval- regular diet Creatinine stable PT/OT Social work consulted, will likely need SNF placement upon DC referral sent to [facility] Transfer to 4th Critical Care Critically Ill Patient MANDY DIA MD Aug 28, 2022 11:37
--- NOTE | 2022-08-28 11:52 | Progress Note - Cardiology ---
Cardiology SOAP Progress Note Subjective: Does not appear to be in distress. Awakens to command, but remains noncommunicative Objective: I&O/Vital Signs 08/28/22 08/28/22 08/28/22 08/28/22 03:03 03:04 03:17 07:05 Temp 37.0 Pulse 95 99 Resp 19 19 B/P (MAP) 173/99 (123) Pulse Ox 97 97 92 87 O2 Delivery NIV Bilevel Nasal Cannula High Flow N/C O2 Flow Rate 40.00 3.00 3.00 FiO2 40 08/28/22 07:34 Temp 36.8 Pulse 105 Resp 18 B/P (MAP) 131/75 (93) Pulse Ox 90 O2 Delivery Nasal Cannula O2 Flow Rate 3.00 08/28/22 00:00 Intake Total 350 ml Output Total 550 ml Balance -200 ml Weight (Pounds): 154 Weight (Ounces): 5.0 Weight (Calculated Kilograms): [id number] Constitutional: other (responds to name when called; unable to assess otherwise as she provides little information) Respiratory: No accessory muscle use, No respiratory distress; chest expansion is symmetric, chest is bilaterally symmetric, other (diminished lower lobes bilat) Cardiovascular: irregularly irregular; No JVD; S1 and S2 Gastrointestional: No tender; soft; No guarding; audible bowel sounds Extremities: no lower extremity edema bilateral Neurologic/Psychiatric: other (moves all extremities) Skin: normal color, warm/dry Results/Procedures: Labs Laboratory Tests 08/28/22 04:42: White Blood Count 9.8, Red Blood Count 2.52L, Hemoglobin 8.1L, Hematocrit 25L, Mean Corpuscular Volume 99, Mean Corpuscular Hemoglobin 32, Mean Corpuscular Hemoglobin Concent 32, Red Cell Distribution Width 15.2H, Platelet Count 196, Mean Platelet Volume 9.6, Immature Granulocyte % (Auto) 1, Neutrophils (%) (Auto) 71, Lymphocytes (%) (Auto) 18, Monocytes (%) (Auto) 9, Eosinophils (%) (Auto) 2, Basophils (%) (Auto) 0, Neutrophils # (Auto) 6.9, Lymphocytes # (Auto) 1.8, Monocytes # (Auto) 0.9, Eosinophils # (Auto) 0.2, Basophils # (Auto) 0.0, Immature Granulocyte # (Auto) 0.1, Sodium Level 136, Potassium Level 4.2, Chloride Level 104, Carbon Dioxide Level 25, Anion Gap 7, Blood Urea Nitrogen 32H, Creatinine 1.44H, Estimat Glomerular Filtration Rate 35, BUN/Creatinine Ratio 22, Glucose Level 95, Calcium Level 8.5, Corrected Calcium 9.6, Magnesium Level 1.7, Total Bilirubin 0.4, Aspartate Amino Transf (AST/SGOT) 25, Alanine Aminotransferase (ALT/SGPT) 27, Alkaline Phosphatase 70, Total Protein 6.9, Albumin 2.6L 08/28/22 11:24: Glucometer 116H Microbiology 08/24/22 Blood Culture - Preliminary, Resulted No growth 08/20/22 Urine Culture - Final, Complete Escherichia coli Laboratory Tests 08/27/22 10:24 08/28/22 04:42 A/P: Assessment: Acute change in mental status - Probably secondary to sepsis and hypoxemia - Managed by [facility]osp [facility] UTI with sepsis - managed by [facility] Acute renal insufficiency - [facility] managing Atrial fibrillation, rate is controlled - Continue Cardizem and dig and Xarelto COPD - acute exacerbation Congestive heart failure, chronic compensated left ventricular diastolic dysfunction with ejection fraction 50% Unable to tolerate JACINTO inhibitor and/or ARB due to hypotension 2D Echo done on August 21, 2022 with ejection fraction 65%, severe pulmonary hypertension with PA 70 to 75 mmHg, dilated right heart chambers with wide open tricuspid regurgitation Pulmonary HTN - Echo of 08-21-[address] Shah showed PASP 70-75 mmHg Coronary artery disease, Last cardiac catheterization done in 2010 reporting minor disease nonobstructive disease Conservative management is recommended Hypertension, controlled Monitor blood pressure History of CVA in the past. Mild bilateral carotid stenosis Hyperlipidemia Hypothyroidism followed and managed by primary care physician History of syncope Peripheral edema History of tobaccoism in the past. Plan: * Dig level was rising. We reduced dig to 0.0625 mg daily starting today * Continue dilt and rivaroxaban * Monitor labs MARIA ANTONIA GAUTHIER MD FACP [facility] Aug 28, 2022 11:52
[2022-08-28] MEDS: VANCOMYCIN 500 MG/NS 100 ML IV SCH ×2 (11:57)
[2022-08-28] MEDS: RIVAROXABAN 15 MG TABLET (XARELTO) PO SCH (17:39)
[2022-08-28 19:26] VITALS: BP 137/67
[2022-08-28] MEDS: AtorvaSTATin TABLET 10 MG TABLET PO SCH (19:52)
[2022-08-29] VITALS (8 sets, daily range): BP systolic 118–137; BP diastolic 61–82
[2022-08-29] MEDS: LEVOTHYROXINE 100 MCG (LEVOTHROID) TAB PO SCH (05:12)
[2022-08-29] MEDS: inSUlin ASPART (NovoLOG) 1 UNIT/0.01 ML (CHARGE PER UNIT) SC SCH ×4 (05:14→21:30)
[2022-08-29 07:33] LABS: BASOPHILS % (AUTO) 0 % (0-10); EOSINOPHILS # (AUTO) 0.2 10^3/uL (0.0-0.3); EOSINOPHILS % (AUTO) 2 % (0-10); HEMATOCRIT 25 % (35-52); HEMOGLOBIN 7.8 g/dL (11.5-16.0); LYMPHOCYTES # (AUTO) 1.9 10^3/uL (1.0-4.0); LYMPHOCYTES % (AUTO) 21 % (12-44); MEAN CORPUSCULAR HEMOGLOBIN 31 pg (25-34); MEAN CORPUSCULAR HGB CONC 32 g/dL (32-36); MEAN CORPUSCULAR VOLUME 98 fL (80-99); MEAN PLATELET VOLUME 9.6 fL (9.0-12.2); MONOCYTES # (AUTO) 0.8 10^3/uL (0.0-1.0); MONOCYTES % (AUTO) 9 % (0-12); NEUTROPHILS # (AUTO) 6.2 10^3/uL (1.8-7.8); NEUTROPHILS % (AUTO) 68 % (42-75); PLATELET COUNT 214 10^3/uL (130-400)
[2022-08-29 07:53] LABS: ALBUMIN 2.6 GM/DL (3.2-4.5); BILIRUBIN,TOTAL 0.5 MG/DL (0.1-1.0); CALCIUM 8.4 MG/DL (8.5-10.1); CREATININE SERUM 1.53 MG/DL (0.60-1.30); MAGNESIUM 2.5 MG/DL (1.6-2.4); POTASSIUM 4.4 MMOL/L (3.6-5.0)
[2022-08-29] MEDS: POTASSIUM CL 10MEQ/50ML IVPB 50 ML IV SCH (08:39)
[2022-08-29] MEDS: MAGNESIUM 1 GM/100 ML IVPB 100 ML IV SCH (08:40)
[2022-08-29] MEDS: KCL 20 MEQ TAB (K-DUR) PO SCH (08:40)
[2022-08-29] MEDS: DOCUSATE SODIUM 100 MG (COLACE) CAP PO SCH ×2 (08:41→20:52)
[2022-08-29] MEDS: FAMOTIDINE 20 MG (PEPCID) TABLET PO SCH (08:41)
[2022-08-29] MEDS: DIGOXIN 0.125 MG (LANOXIN) TAB PO SCH (08:41)
[2022-08-29] MEDS: SENNOSIDES 8.6 MG (SENOKOT) TAB PO SCH ×2 (08:41→20:52)
[2022-08-29] MEDS: meTOprolol TARTRATE 25 MG (LOPRESSOR) TABLET PO SCH ×2 (08:41→20:52)
--- NOTE | 2022-08-29 08:46 | Cardiology Progress Note ---
Subjective Date Seen by Provider: Aug 29, 2022 Time Seen by Provider: 08:25 Subjective/Events-last exam Patient nonverbal, shakes head yes and no to answer questions. Denies any chest pain Focused Exam Time of Focused Exam: 18:50 Objective-Cardiology Exam Last Set of Vital Signs Vital Signs 08/28/22 08/29/22 08/29/22 03:04 07:49 09:04 Temp 36.3 Pulse 87 Resp 18 B/P (MAP) 122/61 (81) Pulse Ox 95 O2 Delivery High Flow N/C O2 Flow Rate 4.00 FiO2 40 I&O Intake and Output 08/28/22 23:59 Intake Total 1743 ml Output Total 1100 ml Balance 643 ml Intake Oral 1343 ml IV Total 400 ml Output Urine Total 1100 ml # Bowel Movements 2 General: Alert, Cooperative HEENT: Atraumatic, PERRLA Neck: Supple, No JVD Lungs: Other (rhonchi) Heart: Regular Rate, Normal S1, Normal S2 Abdomen: Normal Bowel Sounds Extremities: No Clubbing, No Cyanosis Skin: No Breakdown Psych/Mental Status: Mood NL Results Lab Laboratory Tests 08/29/22 07:23 A/P-Cardiology Admission Diagnosis Acute change in mental status UTI Sepsis Atrial fibrillation Assessment/Plan Status post acute change in mental status, Probably secondary to sepsis and hypoxemia Currently lethargic, opening her eyes and smiling, not responding to questions Managed by hospitalist UTI with sepsis, continue on antibiotics, management per hospitalist Acute renal insufficiency, continue to monitor renal function. Atrial fibrillation, rate is controlled, maintained on Cardizem, digoxin, Xarelto. Digoxin decreased d/t increasing dig level. COPD, acute exacerbation, slowly improving. Congestive heart failure, chronic compensated left ventricular diastolic dysfunction with ejection fraction 50% Unable to tolerate JACINTO inhibitor and/or ARB due to hypotension 2D Echo done on August 21, 2022 with ejection fraction 65%, severe pulmonary hypertension with PA 70 to 75 mmHg, dilated right heart chambers with wide open tricuspid regurgitation Pulmonary HTN, Echo of 08-21-22 showed PASP 70-75 mmHg Coronary artery disease, Last cardiac catheterization done in 2010 reporting minor disease nonobstructive disease Conservative management is recommended Hypertension, controlled Monitor blood pressure History of CVA in the past. Mild bilateral carotid stenosis Hyperlipidemia Hypothyroidism followed and managed by primary care physician History of syncope Peripheral edema History of tobaccoism in the past. Supervisory-Addendum Brief Supervisory Addendum Participated in pt care: history, MDM, physical Personally performed: exam, history, MDM Care discussed with: LINDA Results interpretation: Verified all documentation Notes: Patient was seen and evaluated with Magali, examination performed, management plan was discussed, agree with the current scribed note, I made few changes to the note using Italic font Patient was seen at bedside, laying down comfortably Opening her eyes and smiling, not responding to questions Clinically no change from baseline. MAGALI MARINELLI Aug 29, 2022 08:46 TATIANA MCKINNEY MD Aug 29, 2022 09:51
--- NOTE | 2022-08-29 09:02 | Wound Care Assessment ---
Wound Care Assessment Date Seen by Provider: Aug 29, 2022 Time Seen by Provider: 08:57 Chief Complaint Recent L. calf wound HPI This pleasant 89 year old patient is well known to my outpatient clinic. 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 Emilee declined arterial testing and any form of compression which did delay her wound healing. She also suffers from moderate protein energy malnutrition, chronic refractory anemia, h/o vitamin D deficiency, h/o CAD and atrial fibrillation, COPD and expressive aphasia from past CVA. Despite this, Emilee healed with conservative treatments (dressings, antibiotics and debridements in office). As a result, she is healed today. I am impressed at her diuresis through her stay and her lymphedema today is greatly improved from the last I saw her. Her previous wound site is now epithelialized (but remains at risk should Emilee develop severe edema again in the future). Past Medical History: Admits Heart Disease, Admits Peripheral Artery Disease, Admits Cancer, Treaments CVA with resulting expressive aphasia, severe chronic lymphedema LE, refractory anemia, CKD stage 3, h/o vitamin D deficiency, COPD, h/o CAD with CHF, PEM (moderate) Recreational Drug Use: No Alcohol Use: Denies Use Other Social Hx Limited due to expressive aphasia (most of ROS obtained from outpatient chart) Review of Systems Other systems Limited by expressive aphasia Exam Vital Signs Date Time Temp Pulse Resp B/P (MAP) Pulse Ox O2 Delivery O2 Flow Rate FiO2 08/29/22 07:49 36.3 87 18 122/61 (81) 95 Nasal Cannula 5.00 08/28/22 03:04 40 Capillary Refill : Less Than 3 Seconds General Appearance: WD/WN, no apparent distress HEENT: other (expressive aphasia) Respiratory: no respiratory distress, no accessory muscle use, other (continuous O2) Extremities: pedal edema (greatly improved) Neurologic/Psychiatric: alert, normal mood/affect, other (unable to fully assess cognition d/t expressive aphasia) Skin: normal color, warm/dry Fully epithelialized area to left anterior calf. Hyperpigmented due to recent surgical wound Results Laboratory Tests 08/28/22 11:24: Glucometer 116H 08/28/22 16:33: Glucometer 105 08/28/22 19:58: Glucometer 132H 08/29/22 05:13: Glucometer 92 08/29/22 05:30: Glucometer 93 08/29/22 07:23: White Blood Count 9.0, Red Blood Count 2.49L, Hemoglobin 7.8L, Hematocrit 25L, Mean Corpuscular Volume 98, Mean Corpuscular Hemoglobin 31, Mean Corpuscular Hemoglobin Concent 32, Red Cell Distribution Width 15.0H, Platelet Count 214, Mean Platelet Volume 9.6, Immature Granulocyte % (Auto) 0, Neutrophils (%) (Auto) 68, Lymphocytes (%) (Auto) 21, Monocytes (%) (Auto) 9, Eosinophils (%) (Auto) 2, Basophils (%) (Auto) 0, Neutrophils # (Auto) 6.2, Lymphocytes # (Auto) 1.9, Monocytes # (Auto) 0.8, Eosinophils # (Auto) 0.2, Basophils # (Auto) 0.0, Immature Granulocyte # (Auto) 0.0, Sodium Level 138, Potassium Level 4.4, Chloride Level 105, Carbon Dioxide Level 27, Anion Gap 6, Blood Urea Nitrogen 31H, Creatinine 1.53H, Estimat Glomerular Filtration Rate 32, BUN/Creatinine Ra steven 20, Glucose Level 89, Calcium Level 8.4L, Corrected Calcium 9.5, Magnesium Level 2.5H, Total Bilirubin 0.5, Aspartate Amino Transf (AST/SGOT) 18, Alanine Aminotransferase (ALT/SGPT) 21, Alkaline Phosphatase 76, Total Protein 7.0, Albumin 2.6L Microbiology 08/24/22 Blood Culture - Preliminary, Resulted No growth 08/20/22 Urine Culture - Final, Complete Escherichia coli Assessment/Plan/Dx Assessment: 1. Healed surgical wound 2. Expressive aphasia 3. h/o severe lymphedema (greatly improved) 4. Refractory anemia (chronic) 5. CKD stage 3 6. PEM (moderate) Plan: 1. I will sign off currently. Continue to monitor site and let us know if we can be of use in the future. LIV JAVIER MD Aug 29, 2022 09:02
[2022-08-29] MEDS: VANCOMYCIN 500 MG/NS 100 ML IV SCH ×2 (11:43)
--- NOTE | 2022-08-29 15:13 | Progress Note - Hospitalist ---
Subjective HPI/CC On Admission Date Seen by Provider: Aug 29, 2022 Time Seen by Provider: 10:35 Subjective/Events-last exam She is laying in bed. She appears comfortable. Focused Exam Time of Focused Exam: 18:50 Objective Exam Vital Signs Vital Signs Date Time Temp Pulse Resp B/P (MAP) Pulse Ox O2 Delivery O2 Flow Rate FiO2 08/29/22 14:41 96 High Flow N/C 4.00 08/29/22 12:00 36.4 79 18 118/66 (83) 08/28/22 03:04 40 Capillary Refill : Less Than 3 Seconds General Appearance: No Apparent Distress, Chronically ill Respiratory: Lungs Clear, No Respiratory Distress Cardiovascular: Regular Rate, Rhythm, No Murmur Gastrointestinal: Normal Bowel Sounds, Soft Extremity: Normal Inspection, No Pedal Edema Neurologic/Psychiatric: Alert Skin: Normal Color, Warm/Dry Results/Procedures Lab Laboratory Tests 08/29/22 07:23 Patient resulted labs reviewed. Imaging: Reviewed Imaging Films, Reviewed Imaging Report Assessment/Plan Assessment and Plan Assess & Plan/Chief Complaint Acute respiratory failure with hypoxia Severe sepsis Acute on chronic heart failure UTI PHOENIX on CKD Afib with RVR Dementia Advanced age Received course of Rocephin for UTI Continue Vancomycin for coag negative staph in blood cultures Oxygen requrement at 4 L Cardiology following Continue oral cardizem, digoxin, metoprolol, xarelto, rate controlled PT/OT Social work following, will likely need SNF placement upon DC, referral sent to [facility] Diagnosis/Problems Diagnosis/Problems (1) Severe sepsis Status: Acute (2) UTI (urinary tract infection) Status: Acute Qualifiers: Urinary tract infection type: acute cystitis Hematuria presence: without hematuria Qualified Codes: N30.00 - Acute cystitis without hematuria (3) Lactic acidosis Status: Acute (4) Atrial fibrillation with RVR Status: Acute (5) Acute kidney injury superimposed on chronic kidney disease Status: Acute (6) Acute respiratory failure with hypoxia Status: Acute (7) Dementia Status: Chronic (8) History of CVA with residual deficit Status: Chronic (9) Severe pulmonary hypertension Status: Acute RAYO JHA MD Aug 29, 2022 15:13
[2022-08-29] MEDS: RIVAROXABAN 15 MG TABLET (XARELTO) PO SCH (17:15)
[2022-08-29] MEDS: AtorvaSTATin TABLET 10 MG TABLET PO SCH (20:52)
[2022-08-30] VITALS (7 sets, daily range): BP systolic 116–145; BP diastolic 56–69
[2022-08-30 05:23] LABS: BASOPHILS % (AUTO) 0 % (0-10); EOSINOPHILS # (AUTO) 0.2 10^3/uL (0.0-0.3); EOSINOPHILS % (AUTO) 1 % (0-10); HEMATOCRIT 25 % (35-52); LYMPHOCYTES # (AUTO) 1.8 10^3/uL (1.0-4.0); LYMPHOCYTES % (AUTO) 16 % (12-44); MEAN CORPUSCULAR HEMOGLOBIN 31 pg (25-34); MEAN CORPUSCULAR HGB CONC 32 g/dL (32-36); MEAN CORPUSCULAR VOLUME 97 fL (80-99); MEAN PLATELET VOLUME 9.6 fL (9.0-12.2); MONOCYTES # (AUTO) 0.8 10^3/uL (0.0-1.0); MONOCYTES % (AUTO) 7 % (0-12); NEUTROPHILS # (AUTO) 8.4 10^3/uL (1.8-7.8); NEUTROPHILS % (AUTO) 75 % (42-75); PLATELET COUNT 254 10^3/uL (130-400); WHITE BLOOD COUNT 11.2 10^3/uL (4.3-11.0)
[2022-08-30] MEDS: inSUlin ASPART (NovoLOG) 1 UNIT/0.01 ML (CHARGE PER UNIT) SC SCH ×4 (05:24→21:04)
[2022-08-30 05:44] LABS: ALBUMIN 2.8 GM/DL (3.2-4.5); BILIRUBIN,TOTAL 0.5 MG/DL (0.1-1.0); CALCIUM 8.7 MG/DL (8.5-10.1); CREATININE SERUM 1.43 MG/DL (0.60-1.30); POTASSIUM 4.5 MMOL/L (3.6-5.0); TOTAL PROTEIN 7.4 GM/DL (6.4-8.2)
[2022-08-30] MEDS: POTASSIUM CL 10MEQ/50ML IVPB 50 ML IV SCH (05:49)
[2022-08-30] MEDS: KCL 20 MEQ TAB (K-DUR) PO SCH (05:50)
[2022-08-30] MEDS: MAGNESIUM 1 GM/100 ML IVPB 100 ML IV SCH (06:02)
[2022-08-30] MEDS: LEVOTHYROXINE 100 MCG (LEVOTHROID) TAB PO SCH (06:07)
--- NOTE | 2022-08-30 08:32 | Cardiology Progress Note ---
Subjective Date Seen by Provider: Aug 30, 2022 Time Seen by Provider: 08:30 Subjective/Events-last exam Patient is in bed, no new complaint Review of Systems General: Other (unable to provide ROS) Focused Exam Time of Focused Exam: 18:50 Objective-Cardiology Exam Last Set of Vital Signs Vital Signs 08/30/22 08/30/22 03:00 07:43 Temp 36.4 Pulse 88 Resp 18 B/P (MAP) 119/62 (81) Pulse Ox 95 O2 Delivery High Flow N/C O2 Flow Rate 4.00 FiO2 36 I&O Intake and Output 08/30/22 00:00 Intake Total 980 ml Output Total 1050 ml Balance -70 ml Intake Oral 980 ml Output Urine Total 1050 ml # Bowel Movements 4 General: Alert, Cooperative HEENT: Atraumatic, PERRLA Neck: Supple, No JVD Lungs: Other (rhonchi) Heart: Regular Rate, Normal S1, Normal S2 Abdomen: Normal Bowel Sounds Extremities: No Clubbing, No Cyanosis Skin: No Breakdown Neuro: Normal Speech Psych/Mental Status: Mood NL Results Lab Laboratory Tests 08/30/22 05:11 A/P-Cardiology Admission Diagnosis Acute change in mental status UTI Sepsis Atrial fibrillation Assessment/Plan Status post acute change in mental status, Probably secondary to sepsis and hypoxemia Currently lethargic, opening her eyes and smiling, not responding to questions Managed by hospitalist UTI with sepsis, continue on antibiotics, management per hospitalist Acute renal insufficiency, continue to monitor renal function. Atrial fibrillation, rate is controlled, maintained on Cardizem, digoxin, Xarelto. Digoxin decreased d/t increasing dig level. COPD, acute exacerbation, slowly improving. Congestive heart failure, chronic compensated left ventricular diastolic dysfunction with ejection fraction 50% Unable to tolerate JACINTO inhibitor and/or ARB due to hypotension 2D Echo done on August 21, 2022 with ejection fraction 65%, severe pulmonary hypertension with PA 70 to 75 mmHg, dilated right heart chambers with wide open tricuspid regurgitation Pulmonary HTN, Echo of 08-21-22 showed PASP 70-75 mmHg Coronary artery disease, Last cardiac catheterization done in 2010 reporting minor disease nonobstructive disease Conservative management is recommended Hypertension, controlled Monitor blood pressure History of CVA in the past. Mild bilateral carotid stenosis Hyperlipidemia Hypothyroidism followed and managed by primary care physician History of syncope Peripheral edema History of tobaccoism in the past. TATIANA MCKINNEY MD Aug 30, 2022 08:31
[2022-08-30] MEDS: meTOprolol TARTRATE 25 MG (LOPRESSOR) TABLET PO SCH ×2 (08:54→21:04)
[2022-08-30] MEDS: FAMOTIDINE 20 MG (PEPCID) TABLET PO SCH (08:54)
[2022-08-30] MEDS: SENNOSIDES 8.6 MG (SENOKOT) TAB PO SCH ×2 (08:54→21:04)
[2022-08-30] MEDS: DIGOXIN 0.125 MG (LANOXIN) TAB PO SCH (08:54)
[2022-08-30] MEDS: DOCUSATE SODIUM 100 MG (COLACE) CAP PO SCH ×2 (08:54→21:04)
[2022-08-30] MEDS: dilTIAZem120 MG (CARDIZEM CD) CAP PO SCH (08:55)
--- NOTE | 2022-08-30 09:13 | Occ Therapy Progress Note ---
Therapy Progress Note OT communicated w/ JOSE Carrillo for appropriateness to reevaluate patient for skilled needs. OT will preform today WILLIAN POE OT Aug 30, 2022 09:13
--- NOTE | 2022-08-30 10:32 | Occupational Therapy Eval ---
OT Evaluation-General/PLF Medical Diagnosis Admission Date August 20, 2022 at 20:26 Medical Diagnosis: Acute Respiratory Failure Onset Date: August 20, 2022 Therapy Diagnosis Therapy Diagnosis: Weakness, debility Height/Weight Height (Feet): 5 Height (Inches): 1.00 Weight (Pounds): 154 Weight (Ounces): 5.0 Precautions Precautions/Isolations: Standard Precautions Safety Interventions: Bed Exit Alarm Weight Bear Status Weight Bearing Restriction: Weight Bearing/Tolerated Bed and WC bound requires mechanical lifting or two person dependent transfers, Requires dependent mobility of WC and dependant positing as evidenced with inability to transition sit EOB w/ 2 persons w/o support. Extensive strength machine assembler for puller over on bedrail d/t fear and global aphasia. Completes less than 25% one step commands with demonstration and hand over hand placement. Referral Physician: Dr. Alfonso Referral Reason: Evaluation/Treatment Referral Comments Reevaluation following transfer from ICU to medical fourth floor to assist in DC planning Medical History Pertinent Medical History: COPD, Dementia, Diverticulitis Reviewed History: Yes Social History Home: Alf (NH/LTAC/ESTRELLITA) Entry Into Home: Level Entry Family reports patient was transferred by to staff to , patient was dressed by staff and was propelled by staff. Patient no longer meets ESTRELLITA criteria and needs placement ADL-Prior Level of Function SCALE: Activities may be completed with or without assistive devices. 6-Vaetfzfmvz-achlicb completes the activity by him/herself with no assistance from a helper. 5-Set-up or Clean-up Assistance-helper sets up or cleans up; patient completes activity. Armstrong assists only prior to or following the activity. 4-Supervision or Touching Assistance-helper provides verbal cues and/or touching/steadying and/or contact guard assistance as patient completes activity. Assistance may be provided throughout the activity or intermittently. 3-Partial/Moderate Assistance-helper does LESS THAN HALF the effort. Armstrong lifts, holds or supports trunk or limbs, but provides less than half the effort. 2-Substantial/Maximal Assistance-helper does MORE THAN HALF the effort. Armstrong lifts or holds trunk or limbs and provides more than half the effort. 4-Occdnfqdw-pbaxrw does ALL the effort. Patient does none of the effort to complete the activity. Or, the assistance of 2 or more helpers is required for the patient to complete the activity. If activity was not attempted, code reason: 7-Patient Refused. 9-Not Applicable-not attempted and the patient did not perform the activity before the current illness, exacerbation or injury. 10-Not Attempted due to Environmental Limitations-(lack of equipment, weather restraints, etc.). 88-Not Attempted due to Medical Conditions or Safety Concerns. Self Care: Dependent Functional Cognition: Needed Some Help Patient is facially communicative and postural communicative. Patient pulls away from act of holding hair brush, toothbrush and other utensils, looks at objects w/ confusion. APRAXIA noted throughout session. B/B incontinent. Rolling R/L w/ 2 person for BM hygiene and garment changes. Patient follows less than 25% of commands Drive Self: No OT Current Status Subjective Patient smiles and mirrors wave to Therapist, family consent for reevaluation Mental Status/Objective Patient Orientation: Confused Current Upper Extremity ROM PROM WFLS, AROM initiatied to pull and withdrawal from therapist Upper Extremity Coordination IMPAIRED Upper Extremity Strength hand machine assembler for puller over strength +4/5, Grossly 4/5 noted to BUE when patient is resistive and fearful to transition to varied position ADL-Treatment Eating (QC): 2 (will OPEN mouth and close over utensil, refuses hand over hand skill to scoop or feed self) Oral Hygiene (QC): 2 (Attempt w/ sponge swab and tooth brush w/ paste, Vareid trials with Patient pushing utensils away, OPENiNG hand and refusing to hold utensil and closing mouth to prevent utensil insertion. Patient mildly tolerated 2-3 swipes across teeth with toothbrush) Shower/Bathe Self (QC): 7 Upper Body Dressing (QC): 2 (Once patietn released machine assembler for puller over on bed/sheet/rail allows OT to assist in passive insertion of UE through gown) Lower Body Dressing (QC): 1 On/Off Footwear (QC): 9 Toileting Hygiene (QC): 1 Education OT Patient Education: Correct positioning, Modified ADL techniques, Progress toward Goal/Update tx plan, Purpose of tx/functional activities, Reviewed pre cautions, Rehab process, Safety issues, Transfer techniques, Use of adapted equipment, W/C management Teaching Recipient: Patient, Family Teaching Methods: Demonstration, Discussion Response to Teaching: Reinforcement Needed OT Animal Husbandry Teacher Goals Senior Living Goals Eating (QC): 3 Oral Hygiene (QC): 3 Toileting Hygiene (QC): 2 Shower/Bathe Self (QC): 2 Upper Body Dressing (QC): 3 Lower Body Dressing (QC): 2 On/Off Footwear (QC): 2 1=Demonstrate adherence to instructed precautions during ADL tasks. 2=Patient will verbalize/demonstrate understanding of assistive devices/modifications for ADL. 3=Patient will improve strength/tolerance for activity to enable patient to perform ADL's. OT Education/Plan Problem List/Assessment Assessment: Decreased Activ Tolerance, Decreased Safety Aware, Decreased UE Strength, Dependent Transfers, Impaired Bed Mobility, Impaired Cognition, Impaired Coordination, Impaired Funct Balance, Impaired Self-Care Skills Discharge Recommendations Plan/Recommendations: Continue POC Therapy Discharge Recommendati: Post Acute OT (SNU w/ possible LTC) Treatment Plan/Plan of Care Patient would benefit from OT for education, treatment and training to promote independence in ADL's, mobility, safety and/or upper extremity function for ADL's. Plan of Care: Caregiver Training, Concurrent Therapy, Functional Mobility, Group Exercise/Act as Ind, UE Funct Exercise/Act Treatment Duration: August 24, 2022 Frequency: 3 times per week (3-5 times per week) Estimated Hrs Per Day: .25 hour per day Rehab Potential: Fair Time Start Time: 10:27 Stop Time: 10:49 DATE: Aug 30, 2022 Total Time Billed (hr/min): 25 Billed Treatment Time EVM, 22 min WILLIAN POE OT Aug 30, 2022 10:32
--- NOTE | 2022-08-30 15:25 | Progress Note - Hospitalist ---
Subjective HPI/CC On Admission Date Seen by Provider: Aug 30, 2022 Time Seen by Provider: 10:25 Subjective/Events-last exam She is laying in bed. Her daughter is at the bedside. She smiles as her daughter talks to her. Objective Exam Vital Signs Vital Signs Date Time Temp Pulse Resp B/P (MAP) Pulse Ox O2 Delivery O2 Flow Rate FiO2 08/30/22 12:24 36.5 87 16 145/65 (91) 93 High Flow N/C 4.00 08/30/22 03:00 36 Capillary Refill : Less Than 3 Seconds General Appearance: No Apparent Distress, Chronically ill Respiratory: Lungs Clear, No Respiratory Distress Cardiovascular: Regular Rate, Rhythm, No Murmur Gastrointestinal: Normal Bowel Sounds, Soft Extremity: Normal Inspection, No Pedal Edema Neurologic/Psychiatric: Alert, Aphasia Skin: Normal Color, Warm/Dry Results/Procedures Lab Laboratory Tests 08/30/22 05:11 Patient resulted labs reviewed. Imaging: Reviewed Imaging Films, Reviewed Imaging Report Assessment/Plan Assessment and Plan Assess & Plan/Chief Complaint Acute respiratory failure with hypoxia Severe sepsis Acute on chronic heart failure UTI [place] on CKD Afib with RVR Dementia Advanced age s/p Rocephin for UTI s/p Vancomycin for coag negative staph in blood cultures Oxygen requrement at 4 L, stable Cardiology following Continue oral cardizem, digoxin, metoprolol, xarelto, rate controlled PT/OT Social work following, pending insurance approval for SNF at [facility] Diagnosis/Problems Diagnosis/Problems (1) Severe sepsis Status: Acute (2) UTI (urinary tract infection) Status: Acute Qualifiers: Urinary tract infection type: acute cystitis Hematuria presence: without hematuria Qualified Codes: N30.00 - Acute cystitis without hematuria (3) Lactic acidosis Status: Acute (4) Atrial fibrillation with RVR Status: Acute (5) Acute kidney injury superimposed on chronic kidney disease Status: Acute (6) Acute respiratory failure with hypoxia Status: Acute (7) Dementia Status: Chronic (8) History of CVA with residual deficit Status: Chronic (9) Severe pulmonary hypertension Status: Acute RAYO JAH MD Aug 30, 2022 15:25
[2022-08-30] MEDS: RIVAROXABAN 15 MG TABLET (XARELTO) PO SCH (16:42)
[2022-08-30] MEDS: AtorvaSTATin TABLET 10 MG TABLET PO SCH (21:04)
[2022-08-31 03:10] VITALS: BP 114/53
[2022-08-31 05:54] LABS: BASOPHILS % (AUTO) 0 % (0-10); EOSINOPHILS # (AUTO) 0.1 10^3/uL (0.0-0.3); EOSINOPHILS % (AUTO) 1 % (0-10); HEMATOCRIT 25 % (35-52); HEMOGLOBIN 7.8 g/dL (11.5-16.0); LYMPHOCYTES % (AUTO) 20 % (12-44); MEAN CORPUSCULAR HEMOGLOBIN 31 pg (25-34); MEAN CORPUSCULAR HGB CONC 32 g/dL (32-36); MEAN CORPUSCULAR VOLUME 97 fL (80-99); MEAN PLATELET VOLUME 9.7 fL (9.0-12.2); MONOCYTES # (AUTO) 0.8 10^3/uL (0.0-1.0); MONOCYTES % (AUTO) 8 % (0-12); NEUTROPHILS % (AUTO) 70 % (42-75); PLATELET COUNT 279 10^3/uL (130-400)
[2022-08-31 06:13] LABS: ALBUMIN 2.8 GM/DL (3.2-4.5); POTASSIUM 4.3 MMOL/L (3.6-5.0)
[2022-08-31 06:14] LABS: CALCIUM 8.9 MG/DL (8.5-10.1)
[2022-08-31 06:16] LABS: TOTAL PROTEIN 7.5 GM/DL (6.4-8.2)
[2022-08-31 06:17] LABS: BILIRUBIN,TOTAL 0.4 MG/DL (0.1-1.0)
[2022-08-31 06:19] LABS: CREATININE SERUM 1.42 MG/DL (0.60-1.30)
[2022-08-31] MEDS: inSUlin ASPART (NovoLOG) 1 UNIT/0.01 ML (CHARGE PER UNIT) SC SCH ×4 (06:34→20:41)
[2022-08-31] MEDS: LEVOTHYROXINE 100 MCG (LEVOTHROID) TAB PO SCH (06:34)
[2022-08-31] MEDS: KCL 20 MEQ TAB (K-DUR) PO SCH (06:34)
[2022-08-31] MEDS: POTASSIUM CL 10MEQ/50ML IVPB 50 ML IV SCH (06:34)
[2022-08-31] MEDS: MAGNESIUM 1 GM/100 ML IVPB 100 ML IV SCH ×3 (06:45→08:02)
[2022-08-31 08:00] VITALS: BP 120/68
[2022-08-31] MEDS: DIGOXIN 0.125 MG (LANOXIN) TAB PO SCH (08:05)
[2022-08-31] MEDS: meTOprolol TARTRATE 25 MG (LOPRESSOR) TABLET PO SCH ×2 (08:05→21:19)
[2022-08-31] MEDS: FAMOTIDINE 20 MG (PEPCID) TABLET PO SCH (08:06)
[2022-08-31] MEDS: SENNOSIDES 8.6 MG (SENOKOT) TAB PO SCH ×2 (08:06→21:19)
[2022-08-31] MEDS: dilTIAZem120 MG (CARDIZEM CD) CAP PO SCH (08:11)
[2022-08-31] MEDS: DOCUSATE SODIUM 100 MG (COLACE) CAP PO SCH ×2 (08:11→21:18)
--- NOTE | 2022-08-31 09:11 | Cardiology Progress Note ---
Subjective Date Seen by Provider: Aug 31, 2022 Time Seen by Provider: 09:10 Subjective/Events-last exam Patient was seen at bedside, sitting up, smiling. Objective-Cardiology Exam Last Set of Vital Signs Vital Signs 08/30/22 08/31/22 03:00 08:00 Temp 36.4 Pulse 96 Resp 18 B/P (MAP) 120/68 (85) Pulse Ox 93 O2 Delivery High Flow N/C O2 Flow Rate 4.00 FiO2 36 I&O Intake and Output 08/31/22 00:00 Intake Total 1140 ml Output Total 1175 ml Balance -35 ml Intake Oral 1140 ml Output Urine Total 1175 ml # Bowel Movements 5 General: Alert, Cooperative HEENT: Atraumatic, PERRLA Neck: Supple, No JVD Lungs: Other (rhonchi) Heart: Regular Rate, Normal S1, Normal S2 Abdomen: Normal Bowel Sounds Extremities: No Clubbing, No Cyanosis Skin: No Breakdown Neuro: Normal Speech Psych/Mental Status: Mood NL Results Lab Laboratory Tests 08/31/22 05:46 A/P-Cardiology Admission Diagnosis Acute change in mental status UTI Sepsis Atrial fibrillation Assessment/Plan Status post acute change in mental status, Probably secondary to sepsis and hypoxemia Better today, sitting upright and eating breakfast. Managed by primary care team UTI with sepsis, continue on antibiotics, management per hospitalist Acute renal insufficiency, continue to monitor renal function. Atrial fibrillation, rate is controlled, maintained on Cardizem, digoxin, Xarelto. Digoxin decreased d/t increasing dig level. COPD, acute exacerbation, slowly improving. Congestive heart failure, chronic compensated left ventricular diastolic dysfunction with ejection fraction 50% Unable to tolerate JACINTO inhibitor and/or ARB due to hypotension 2D Echo done on August 21, 2022 with ejection fraction 65%, severe pulmonary hypertension with PA 70 to 75 mmHg, dilated right heart chambers with wide open tricuspid regurgitation Pulmonary HTN, Echo of 08-21-22 showed PASP 70-75 mmHg Coronary artery disease, Last cardiac catheterization done in 2010 reporting minor disease nonobstructive disease Conservative management is recommended Hypertension, controlled Monitor blood pressure History of CVA in the past. Mild bilateral carotid stenosis Hyperlipidemia Hypothyroidism followed and managed by primary care physician History of syncope Peripheral edema History of tobaccoism in the past. TATIANA MCKINNEY MD Aug 31, 2022 09:11
[2022-08-31 11:43] VITALS: BP 124/70
--- NOTE | 2022-08-31 15:50 | Progress Note - Hospitalist ---
Subjective HPI/CC On Admission Date Seen by Provider: Aug 31, 2022 Time Seen by Provider: 09:30 Subjective/Events-last exam She is sleeping in bed. She easily awakens. She shakes her head yes and no to questions. She denies any complaints. She denies pain. Objective Exam Vital Signs Vital Signs Date Time Temp Pulse Resp B/P (MAP) Pulse Ox O2 Delivery O2 Flow Rate FiO2 08/31/22 11:43 36.2 95 18 124/70 (88) 96 High Flow N/C 4.00 08/31/22 08:00 60 Capillary Refill : Less Than 3 Seconds General Appearance: No Apparent Distress, Chronically ill Respiratory: Lungs Clear, No Respiratory Distress Cardiovascular: Regular Rate, Rhythm, No Murmur Gastrointestinal: Normal Bowel Sounds, Soft Extremity: Normal Inspection, No Pedal Edema Neurologic/Psychiatric: Alert, Aphasia Skin: Normal Color, Warm/Dry Results/Procedures Lab Laboratory Tests 08/31/22 05:46 Patient resulted labs reviewed. Imaging: Reviewed Imaging Films, Reviewed Imaging Report Assessment/Plan Assessment and Plan Assess & Plan/Chief Complaint Acute respiratory failure with hypoxia Severe sepsis Acute on chronic heart failure UTI [place] on CKD Afib with RVR Dementia Advanced age s/p Rocephin for UTI s/p Vancomycin for coag negative staph in blood cultures Oxygen requrement at 4 L, stable Cardiology following Continue oral cardizem, digoxin, metoprolol, xarelto, rate controlled PT signed off OT following Wound care signed off Social work following, denied skilled placement Likely return [facility] tomorrow Diagnosis/Problems Diagnosis/Problems (1) Severe sepsis Status: Resolved Resolution Date/Time: 08/31/22 @ 15:49 (2) UTI (urinary tract infection) Status: Resolved Qualifiers: Urinary tract infection type: acute cystitis Hematuria presence: without hematuria Qualified Codes: N30.00 - Acute cystitis without hematuria Resolution Date/Time: 08/31/22 @ 15:49 (3) Lactic acidosis Status: Resolved Resolution Date/Time: 08/31/22 @ 15:49 (4) Atrial fibrillation with RVR Status: Resolved Resolution Date/Time: 08/31/22 @ 15:49 (5) Acute kidney injury superimposed on chronic kidney disease Status: Acute (6) Acute respiratory failure with hypoxia Status: Acute (7) Dementia Status: Chronic (8) History of CVA with residual deficit Status: Chronic (9) Severe pulmonary hypertension Status: Acute RAYO JHA MD Aug 31, 2022 15:50
[2022-08-31 16:05] VITALS: BP 103/61
[2022-08-31] MEDS: RIVAROXABAN 15 MG TABLET (XARELTO) PO SCH (17:32)
[2022-08-31 19:51] VITALS: BP 115/61
[2022-08-31] MEDS: AtorvaSTATin TABLET 10 MG TABLET PO SCH (21:19)
[2022-08-31 23:22] VITALS: BP 107/64
[2022-09-01 03:18] VITALS: BP 113/76
[2022-09-01] MEDS: inSUlin ASPART (NovoLOG) 1 UNIT/0.01 ML (CHARGE PER UNIT) SC SCH ×4 (05:45→20:54)
[2022-09-01 05:47] LABS: ALBUMIN 2.7 GM/DL (3.2-4.5)
[2022-09-01 05:48] LABS: POTASSIUM 4.8 MMOL/L (3.6-5.0)
[2022-09-01 05:49] LABS: CALCIUM 8.7 MG/DL (8.5-10.1)
[2022-09-01 05:50] LABS: TOTAL PROTEIN 7.4 GM/DL (6.4-8.2)
[2022-09-01 05:52] LABS: BILIRUBIN,TOTAL 0.4 MG/DL (0.1-1.0)
[2022-09-01 05:54] LABS: CREATININE SERUM 1.49 MG/DL (0.60-1.30)
[2022-09-01] MEDS: MAGNESIUM 1 GM/100 ML IVPB 100 ML IV SCH (06:01)
[2022-09-01] MEDS: POTASSIUM CL 10MEQ/50ML IVPB 50 ML IV SCH (06:01)
[2022-09-01] MEDS: LEVOTHYROXINE 100 MCG (LEVOTHROID) TAB PO SCH (06:01)
[2022-09-01] MEDS: KCL 20 MEQ TAB (K-DUR) PO SCH (06:02)
[2022-09-01 07:14] VITALS: BP 126/72
[2022-09-01] MEDS: meTOprolol TARTRATE 25 MG (LOPRESSOR) TABLET PO SCH ×2 (08:05→21:17)
[2022-09-01] MEDS: DIGOXIN 0.125 MG (LANOXIN) TAB PO SCH (08:05)
[2022-09-01] MEDS: SENNOSIDES 8.6 MG (SENOKOT) TAB PO SCH ×2 (08:06→21:17)
[2022-09-01] MEDS: FAMOTIDINE 20 MG (PEPCID) TABLET PO SCH (08:06)
[2022-09-01] MEDS: dilTIAZem120 MG (CARDIZEM CD) CAP PO SCH (08:06)
[2022-09-01] MEDS: DOCUSATE SODIUM 100 MG (COLACE) CAP PO SCH ×2 (08:07→21:16)
--- NOTE | 2022-09-01 09:58 | Cardiology Progress Note ---
Subjective Date Seen by Provider: Sep 01, 2022 Time Seen by Provider: 09:57 Subjective/Events-last exam Patient was seen at bedside. Laying down comfortably, no new complaint Objective-Cardiology Exam Last Set of Vital Signs Vital Signs 09/01/22 09/01/22 07:14 08:00 Temp 36.4 Pulse 103 Resp 20 B/P (MAP) 126/72 (90) Pulse Ox 93 O2 Delivery High Flow N/C O2 Flow Rate 4.00 FiO2 60 I&O Intake and Output 09/01/22 00:00 Intake Total 950 ml Output Total 850 ml Balance 100 ml Intake Oral 950 ml Output Urine Total 850 ml # Voids 1 # Bowel Movements 4 General: Alert, Cooperative HEENT: Atraumatic, PERRLA Neck: Supple, No JVD Lungs: Other (rhonchi) Heart: Regular Rate, Normal S1, Normal S2 Abdomen: Normal Bowel Sounds Extremities: No Clubbing, No Cyanosis Skin: No Breakdown Neuro: Normal Speech Psych/Mental Status: Mood NL Results Lab Laboratory Tests 09/01/22 05:33 A/P-Cardiology Admission Diagnosis Acute change in mental status UTI Sepsis Atrial fibrillation Assessment/Plan Status post acute change in mental status, Probably secondary to sepsis and hypoxemia Better today, sitting upright and eating breakfast. Managed by primary care team UTI with sepsis, continue on antibiotics, management per hospitalist Acute renal insufficiency, continue to monitor renal function. Atrial fibrillation, rate is controlled, maintained on Cardizem, digoxin, Xarelto. Digoxin decreased d/t increasing dig level. COPD, acute exacerbation, slowly improving. Congestive heart failure, chronic compensated left ventricular diastolic dysfunction with ejection fraction 50% Unable to tolerate JACINTO inhibitor and/or ARB due to hypotension 2D Echo done on August 21, 2022 with ejection fraction 65%, severe pulmonary hypertension with PA 70 to 75 mmHg, dilated right heart chambers with wide open tricuspid regurgitation Pulmonary HTN, Echo of 08-21-22 showed PASP 70-75 mmHg Coronary artery disease, Last cardiac catheterization done in 2010 reporting minor disease nonobstructive disease Conservative management is recommended Hypertension, controlled Monitor blood pressure History of CVA in the past. Mild bilateral carotid stenosis Hyperlipidemia Hypothyroidism followed and managed by primary care physician History of syncope Peripheral edema History of tobaccoism in the past. TATIANA MCKINNEY MD Sep 01, 2022 09:58
--- NOTE | 2022-09-01 09:59 | Cardiology Progress Note ---
Subjective Date Seen by Provider: Sep 01, 2022 Time Seen by Provider: 08:25 Subjective/Events-last exam Patient in bed, no apparent distress, no new complaints. Objective-Cardiology Exam Last Set of Vital Signs Vital Signs 09/01/22 09/01/22 07:14 08:00 Temp 36.4 Pulse 103 Resp 20 B/P (MAP) 126/72 (90) Pulse Ox 93 O2 Delivery High Flow N/C O2 Flow Rate 4.00 FiO2 60 I&O Intake and Output 09/01/22 00:00 Intake Total 950 ml Output Total 850 ml Balance 100 ml Intake Oral 950 ml Output Urine Total 850 ml # Voids 1 # Bowel Movements 4 General: Alert, Cooperative HEENT: Atraumatic, PERRLA Neck: Supple, No JVD Lungs: Other (rhonchi) Heart: Regular Rate, Normal S1, Normal S2 Abdomen: Normal Bowel Sounds Extremities: No Clubbing, No Cyanosis Skin: No Breakdown Neuro: Normal Speech Psych/Mental Status: Mood NL Results Lab Laboratory Tests 09/01/22 05:33 A/P-Cardiology Admission Diagnosis Acute change in mental status UTI Sepsis Atrial fibrillation Assessment/Plan Status post acute change in mental status, Probably secondary to sepsis and hypoxemia Better today, sitting upright Managed by primary care team UTI with sepsis, continue on antibiotics, management per hospitalist Acute renal insufficiency, continue to monitor renal function. Atrial fibrillation, rate is controlled, maintained on Cardizem, digoxin, Xarelto. Digoxin decreased d/t increasing dig level. COPD, acute exacerbation, slowly improving. Congestive heart failure, chronic compensated left ventricular diastolic dysfunction with ejection fraction 50% Unable to tolerate JACINTO inhibitor and/or ARB due to hypotension 2D Echo done on August 21, 2022 with ejection fraction 65%, severe pulmonary hypertension with PA 70 to 75 mmHg, dilated right heart chambers with wide open tricuspid regurgitation Pulmonary HTN, Echo of 08-21-22 showed PASP 70-75 mmHg Coronary artery disease, Last cardiac catheterization done in 2010 reporting minor disease nonobstructive disease Conservative management is recommended Hypertension, controlled Monitor blood pressure History of CVA in the past. Mild bilateral carotid stenosis Hyperlipidemia Hypothyroidism followed and managed by primary care physician History of syncope Peripheral edema History of tobaccoism in the past. KRISTIE MARINELLI Sep 01, 2022 09:59
--- NOTE | 2022-09-01 10:47 | Progress Note - Hospitalist ---
Subjective HPI/CC On Admission Date Seen by Provider: Sep 01, 2022 Time Seen by Provider: 09:20 Subjective/Events-last exam She is laying in bed. She denies pain. She appears comfortable. Objective Exam Vital Signs Vital Signs Date Time Temp Pulse Resp B/P (MAP) Pulse Ox O2 Delivery O2 Flow Rate FiO2 09/01/22 08:00 93 High Flow N/C 4.00 60 09/01/22 07:14 36.4 103 20 126/72 (90) Capillary Refill : Less Than 3 Seconds General Appearance: No Apparent Distress, Chronically ill Respiratory: Lungs Clear, No Respiratory Distress Cardiovascular: Regular Rate, Rhythm, No Murmur Gastrointestinal: Normal Bowel Sounds, Soft Extremity: Normal Inspection, No Pedal Edema Neurologic/Psychiatric: Alert, Normal Mood/Affect Skin: Normal Color, Warm/Dry Results/Procedures Lab Laboratory Tests 09/01/22 05:33 Patient resulted labs reviewed. Imaging: Reviewed Imaging Films, Reviewed Imaging Report Assessment/Plan Assessment and Plan Assess & Plan/Chief Complaint Acute respiratory failure with hypoxia Severe sepsis Acute on chronic heart failure UTI [place] on CKD Afib with RVR Dementia Advanced age s/p Rocephin for UTI s/p Vancomycin for coag negative staph in blood cultures Oxygen requrement at 4 L, stable Cardiology following Continue oral cardizem, digoxin, metoprolol, xarelto, rate controlled PT signed off OT following Wound care signed off Social work following, denied skilled placement Discharge to [facility] today or tomorrow Diagnosis/Problems Diagnosis/Problems (1) Severe sepsis Status: Resolved Resolution Date/Time: 08/31/22 @ 15:49 (2) UTI (urinary tract infection) Status: Resolved Qualifiers: Urinary tract infection type: acute cystitis Hematuria presence: without hematuria Qualified Codes: N30.00 - Acute cystitis without hematuria Resolution Date/Time: 08/31/22 @ 15:49 (3) Lactic acidosis Status: Resolved Resolution Date/Time: 08/31/22 @ 15:49 (4) Atrial fibrillation with RVR Status: Resolved Resolution Date/Time: 08/31/22 @ 15:49 (5) Acute kidney injury superimposed on chronic kidney disease Status: Acute (6) Acute respiratory failure with hypoxia Status: Acute (7) Dementia Status: Chronic (8) History of CVA with residual deficit Status: Chronic (9) Severe pulmonary hypertension Status: Acute RAYO JHA MD Sep 01, 2022 10:47
[2022-09-01 11:04] VITALS: BP 119/63
--- NOTE | 2022-09-01 11:17 | Occupational Ther Daily Note ---
OT Current Status-Daily Note Subjective Non Verbal, smiles and nods ADL-Treatment Therapy Code Descriptions/Definitions Functional [place] Measure: 0=Not Assessed/NA 4=Minimal Assistance 1=Total Assistance 5=Supervision or Setup 2=Maximal Assistance 6=Modified [place] 3=Moderate Assistance 7=Complete IndependenceSCALE: Activities may be completed with or without assistive devices. 9-Hniuudtfoy-iezbfsk completes the activity by him/herself with no assistance from a helper. 5-Set-up or Clean-up Assistance-helper sets up or cleans up; patient completes activity. [place] assists only prior to or following the activity. 4-Supervision or Touching Assistance-helper provides verbal cues and/or touching/steadying and/or contact guard assistance as patient completes activity. Assistance may be provided throughout the activity or intermittently. 3-Partial/Moderate Assistance-helper does LESS THAN HALF the effort. [place] lifts, holds or supports trunk or limbs, but provides less than half the effort. 2-Substantial/Maximal Assistance-helper does MORE THAN HALF the effort. [place] lifts or holds trunk or limbs and provides more than half the effort. 0-Vybqynlem-hbrcoi does ALL the effort. Patient does none of the effort to complete the activity. Or, the assistance of 2 or more helpers is required for the patient to complete the activity. If activity was not attempted, code reason: 7-Patient Refused. 9-Not Applicable-not attempted and the patient did not perform the activity before the current illness, exacerbation or injury. 10-Not Attempted due to Environmental Limitations-(lack of equipment, weather restraints, etc.). 88-Not Attempted due to Medical Conditions or Safety Concerns. Eating (QC): 2 (today Intiates and holds small milk carton, brings to mouth however misjudges distance, opens mouth to drink from straw,OT insert straw to mouth and patient drink, pushes carton away when done. Opens mouth to be spoon fed pudding, make no attempt to use utensil) Oral Hygiene (QC): 1 Education OT Patient Education: Modified ADL techniques, Safety issues Teaching Recipient: Patient Teaching Methods: Demonstration, Discussion Response to Teaching: Unable to Return Demonstration, Unable to Comprehend OT Nuclear Medicine Chief Technologist Goals Nuclear Medicine Chief Technologist Goals Eating (QC): 3 Oral Hygiene (QC): 3 Toileting Hygiene (QC): 2 Shower/Bathe Self (QC): 2 Upper Body Dressing (QC): 3 Lower Body Dressing (QC): 2 On/Off Footwear (QC): 2 1=Demonstrate adherence to instructed precautions during ADL tasks. 2=Patient will verbalize/demonstrate understanding of assistive devices/modifications for ADL. 3=Patient will improve strength/tolerance for activity to enable patient to perform ADL's. OT Education/Plan Discharge Recommendations Plan/Recommendations: Continue POC Treatment Plan/Plan of Care Patient would benefit from OT for education, treatment and training to promote independence in ADL's, mobility, safety and/or upper extremity function for ADL's. Plan of Care: Caregiver Training, Concurrent Therapy, Functional Mobility, Group Exercise/Act as Ind, UE Funct Exercise/Act Treatment Duration: August 24, 2022 Frequency: 3 times per week (3-5 times per week) Estimated Hrs Per Day: .25 hour per day Rehab Potential: Fair Time Start Time: 09:34 Stop Time: 09:44 DATE: Sep 01, 2022 Total Time Billed (hr/min): 10 Billed Treatment Time ADL 10 min WILLIAN POE OT Sep 01, 2022 11:16
[2022-09-01 16:15] VITALS: BP 135/82
[2022-09-01] MEDS: RIVAROXABAN 15 MG TABLET (XARELTO) PO SCH (17:58)
[2022-09-01 19:39] VITALS: BP 132/67
[2022-09-01] MEDS: AtorvaSTATin TABLET 10 MG TABLET PO SCH (21:16)
[2022-09-01 23:40] VITALS: BP 123/69
[2022-09-02 03:35] VITALS: BP 108/65
[2022-09-02] MEDS: inSUlin ASPART (NovoLOG) 1 UNIT/0.01 ML (CHARGE PER UNIT) SC SCH ×2 (06:15→11:45)
[2022-09-02] MEDS: LEVOTHYROXINE 100 MCG (LEVOTHROID) TAB PO SCH (06:15)
[2022-09-02 07:04] LABS: POTASSIUM 4.5 MMOL/L (3.6-5.0)
[2022-09-02 07:11] LABS: MAGNESIUM 1.7 MG/DL (1.6-2.4)
[2022-09-02] MEDS: POTASSIUM CL 10MEQ/50ML IVPB 50 ML IV SCH (07:30)
[2022-09-02] MEDS: KCL 20 MEQ TAB (K-DUR) PO SCH (07:31)
[2022-09-02] MEDS: MAGNESIUM 1 GM/100 ML IVPB 100 ML IV SCH ×5 (07:40→10:58)
[2022-09-02 07:53] VITALS: BP 125/82
[2022-09-02] MEDS: DOCUSATE SODIUM 100 MG (COLACE) CAP PO SCH (08:12)
[2022-09-02] MEDS: DIGOXIN 0.125 MG (LANOXIN) TAB PO SCH (08:14)
[2022-09-02] MEDS: FAMOTIDINE 20 MG (PEPCID) TABLET PO SCH (08:14)
[2022-09-02] MEDS: SENNOSIDES 8.6 MG (SENOKOT) TAB PO SCH (08:14)
[2022-09-02] MEDS: meTOprolol TARTRATE 25 MG (LOPRESSOR) TABLET PO SCH (08:14)
[2022-09-02] MEDS: dilTIAZem120 MG (CARDIZEM CD) CAP PO SCH (08:14)
[2022-09-02] MEDS ORDERED: FURO20TA4 PO (10:49)
[2022-09-02] MEDS ORDERED: NYST15PO4 TP (10:49)
[2022-09-02] MEDS ORDERED: LEVO100T7 PO (10:49)
[2022-09-02] MEDS ORDERED: CHOL50005 PO (10:49)
[2022-09-02] MEDS ORDERED: DILT-27 PO (10:49)
[2022-09-02] MEDS ORDERED: CYAN500T8 PO (10:49)
[2022-09-02] MEDS ORDERED: COLE1TAB PO (10:49)
[2022-09-02] MEDS ORDERED: DIGO125T18 PO (10:49)
[2022-09-02] MEDS ORDERED: ACID1TAB PO (10:49)
[2022-09-02] MEDS ORDERED: ATOR10TA66 PO (10:49)
[2022-09-02] MEDS ORDERED: RIVA15TA2 PO (10:49)
[2022-09-02] MEDS ORDERED: MTP25TSR PO (10:49)
[2022-09-02] MEDS ORDERED: FAMO20TA5 PO (10:49)
[2022-09-02] MEDS ORDERED: MENT71OI TP (10:49)
--- NOTE | 2022-09-02 10:52 | Cardiology Progress Note ---
Subjective Date Seen by Provider: Sep 02, 2022 Time Seen by Provider: 10:52 Subjective/Events-last exam Patient was seen at bedside laying down comfortably. No new complaint Objective-Cardiology Exam Last Set of Vital Signs Vital Signs 09/01/22 09/02/22 09/02/22 08:00 07:53 08:00 Temp 36.5 Pulse 96 Resp 18 B/P (MAP) 125/82 (96) Pulse Ox 96 O2 Delivery High Flow N/C O2 Flow Rate 4.00 FiO2 60 I&O Intake and Output 09/02/22 00:00 Intake Total 1090 ml Output Total 700 ml Balance 390 ml Intake Oral 1090 ml Output Urine Total 700 ml # Voids 3 # Bowel Movements 6 General: Alert, Cooperative HEENT: Atraumatic, PERRLA Neck: Supple, No JVD Lungs: Other (rhonchi) Heart: Regular Rate, Normal S1, Normal S2 Abdomen: Normal Bowel Sounds Extremities: No Clubbing, No Cyanosis Skin: No Breakdown Neuro: Normal Speech Psych/Mental Status: Mood NL Results Lab Laboratory Tests 09/02/22 06:33 A/P-Cardiology Admission Diagnosis Acute change in mental status UTI Sepsis Atrial fibrillation Assessment/Plan Status post acute change in mental status, Probably secondary to sepsis and hypoxemia I am not sure if she is back to her baseline, not sure what her baseline is. Currently appears stable. UTI with sepsis, continue on antibiotics, management per hospitalist Acute renal insufficiency, continue to monitor renal function. Atrial fibrillation, rate is controlled, maintained on Cardizem, digoxin, Xarelto. Digoxin decreased d/t increasing dig level. COPD, acute exacerbation, slowly improving. Congestive heart failure, chronic compensated left ventricular diastolic dysfunction with ejection fraction 50% Unable to tolerate JACINTO inhibitor and/or ARB due to hypotension 2D Echo done on August 21, 2022 with ejection fraction 65%, severe pulmonary hypertension with PA 70 to 75 mmHg, dilated right heart chambers with wide open tricuspid regurgitation Pulmonary HTN, Echo of 08-21-22 showed PASP 70-75 mmHg Coronary artery disease, Last cardiac catheterization done in 2010 reporting minor disease nonobstructive disease Conservative management is recommended Hypertension, controlled Monitor blood pressure History of CVA in the past. Mild bilateral carotid stenosis Hyperlipidemia Hypothyroidism followed and managed by primary care physician History of syncope Peripheral edema History of tobaccoism in the past. TATIANA MCKINNEY MD Sep 02, 2022 10:52
[2022-09-02 11:29] VITALS: BP 127/72
--- NOTE | 2022-09-02 15:57 | Discharge Summary ---
Discharge Summary Hospital Course Problems/Dx: (1) Severe sepsis Status: Resolved (2) UTI (urinary tract infection) Status: Resolved Qualifiers: Qualified Codes: N30.00 - Acute cystitis without hematuria (3) Lactic acidosis Status: Resolved (4) Atrial fibrillation with RVR Status: Resolved (5) Acute kidney injury superimposed on chronic kidney disease Status: Acute (6) Acute respiratory failure with hypoxia Status: Acute (7) Dementia Status: Chronic (8) History of CVA with residual deficit Status: Chronic (9) Severe pulmonary hypertension Status: Acute Hospital Course Date of Admission: August 20, 2022 at 20:26 Admission Diagnosis : Severe sepsis due to UTI Family Physician/Provider: Eileen Kinney MD Date of Discharge: 09/02/22 Discharge Diagnosis: Severe sepsis due to UTI, AFib with RVR, acute repiratory failure with hypoxia Hospital Course: Emilee Cui is an 89 year old female with dementia, history of stroke with residual aphasia, debility, who was admitted from [facility] assisted living with severe sepsis due to UTI. She was treated with IV fluids and ant ibiotics and improved. She had an PHOENIX on CKD 3b which returned to baseline. Her course was also complicated by acute respiratory failure with hypoxia due to HFpEF. She also had AFib with RVR which resolved. Cardiology was consulted and assisted with her care. She was discharged to [facility] in stable condition. Labs and Pending Lab Test: Laboratory Tests 09/01/22 16:19: Glucometer 109 09/01/22 20:50: Glucometer 113H 09/02/22 05:40: Glucometer 85 09/02/22 06:33: Potassium Level 4.5, Magnesium Level 1.7 09/02/22 11:38: Glucometer 99 Microbiology 08/24/22 Blood Culture - Final, Complete No growth 08/20/22 Urine Culture - Final, Complete Escherichia coli Home Meds Active Digox (Digoxin) 125 Mcg (0.125 Mg) Tablet 0.0625 Mg PO DAILY 30 Days Xarelto Tablet (Rivaroxaban) 15 Mg Tablet 15 Mg PO DAILY@1700 30 Days Levothyroxine Sodium 100 Mcg Tablet 100 Mcg PO DAILY 30 Days Famotidine 20 Mg Tablet 10 Mg PO BID 30 Days Floranex Tablet (L. Acidophilus/Bulgaricus) 1 Million Cell Tablet 1 Each PO BID 30 Days D3-50 (Cholecalciferol (Vitamin D3)) 1,250 Mcg (38823 Unit) Capsule 1,250 Mcg PO WED 30 Days Calmoseptine Ointment (Menthol/Lanolin/Calamine/Znox) 0.44 %-20.6 % Oint 1 Applic TP BID 30 Days APPLY TO RIGHT AND LEFT BUTTOCKS Diltiazem 24Hr ER (Diltiazem HCl) 120 Mg Cap.er.24h 120 Mg PO DAILY 30 Days HOLD IF SBP <110 Vitamin B-12 (Cyanocobalamin (Vitamin B-12)) 500 Mcg Tablet 500 Mcg PO DAILY 30 Days Nystatin 100,000 Unit/Gram Powder 1 Applic TP 2-3 TIMES DAILY 30 Days APPPLY UNDERNEATH BILATERAL BREASTS Furosemide 20 Mg Tablet 20 Mg PO DAILY 30 Days Colestipol HCl 1 Gram Tablet 1 Gm PO 1999 30 Days Metoprolol Succinate 25 Mg Tab.er.24h 12.5 Mg PO DAILY 30 Days TAKES 1/2 OF A 25MG TAB HOLD IF SBP <120 OR PULSE <60 Atorvastatin Calcium 10 Mg Tablet 10 Mg PO HS 30 Days Reported Nystatin 100,000 Unit/Gram Cream..g. 1 Applic TP BID PRN APPLY TO ANDIE AREA Furosemide 20 Mg Tablet 20 Mg PO 1200 PRN Assessment/Pt Instructions See instructions Discharge Planning: >30 minutes discharge planning Discharge Instructions Discharge Diet: Low Sodium Diet Activity as Tolerated: Yes Consultations Cardiology Discharge Physical Examination Vital Signs Vital Signs Date Time Temp Pulse Resp B/P (MAP) Pulse Ox O2 Delivery O2 Flow Rate FiO2 09/02/22 12:58 09/02/22 11:29 36.4 83 18 94 High Flow N/C 4.00 09/01/22 08:00 60 General Appearance: No Apparent Distress, Chronically ill Respiratory: Lungs Clear, No Respiratory Distress Cardiovascular: Regular Rate, Rhythm, No Murmur Gastrointestinal: Normal Bowel Sounds, Soft Extremity: Normal Inspection, Pedal Edema Skin: Normal Color, Warm/Dry Neurologic/Psychiatric: Alert, Aphasia Allergies: Coded Allergies: Penicillins (Verified Allergy, Unknown, 06/02/22) codeine (Verified Adverse Reaction, Unknown, NAUSEA, 06/02/22) Copy Copies To 1: EILEEN KINNEY MD Discharge Summary Date of Admission August 20, 2022 at 20:26 Date of Discharge Sep 02, 2022 at 13:00 Discharge Date: Sep 02, 2022 Discharge Time: 13:00 Admission Diagnosis Severe sepsis due to UTI Consults/Procedures Consulations Cardiology Discharge Diagnosis Acute respiratory failure with hypoxia Severe sepsis Acute on chronic heart failure UTI PHOENIX on CKD Afib with RVR Dementia Advanced age (1) Severe sepsis Status: Resolved (2) UTI (urinary tract infection) Status: Resolved Qualifiers: Qualified Codes: N30.00 - Acute cystitis without hematuria (3) Lactic acidosis Status: Resolved (4) Atrial fibrillation with RVR Status: Resolved (5) Acute kidney injury superimposed on chronic kidney disease Status: Acute (6) Acute respiratory failure with hypoxia Status: Acute (7) Dementia Status: Chronic (8) History of CVA with residual deficit Status: Chronic (9) Severe pulmonary hypertension Status: Acute RAYO JHA MD Sep 02, 2022 15:56
== END 2022-09-02 13:00 | DRG 871 ==
LOC: EDUNIT# 17:49 → ER 17:50 → ICU 20:26 → 4TH 08-27 11:45
PROVIDERS: ADMIT Internal Medicine; ATTEND Internal Medicine
PROC: 5A09357 Assistance with Respiratory Ventilation, Less than 24 Consecutive Hours, Continuous Positive Airway Pressure (ICD-10-PCS; principal; 2022-08-20)
PROC: 5A0945A Assistance with Respiratory Ventilation, 24-96 Consecutive Hours, High Flow/Velocity Cannula (ICD-10-PCS; 2022-08-20)
DX: A41.9 Sepsis, unspecified organism (principal); I50.33 Acute on chronic diastolic (congestive) heart failure; J96.01 Acute respiratory failure with hypoxia; N39.0 Urinary tract infection, site not specified; N17.9 Acute kidney failure, unspecified; E87.20 Acidosis, unspecified; E44.0 Moderate protein-calorie malnutrition; J44.1 Chronic obstructive pulmonary disease with (acute) exacerbation; I13.0 Hypertensive heart and chronic kidney disease with heart failure and stage 1 through stage 4 chronic kidney disease, or unspecified chronic kidney disease; R65.20 Severe sepsis without septic shock; I48.91 Unspecified atrial fibrillation; I27.20 Pulmonary hypertension, unspecified; F03.90 Unspecified dementia, unspecified severity, without behavioral disturbance, psychotic disturbance, mood disturbance, and anxiety; I69.320 Aphasia following cerebral infarction; R53.81 Other malaise; N18.32 Chronic kidney disease, stage 3b; I25.10 Atherosclerotic heart disease of native coronary artery without angina pectoris; D63.1 Anemia in chronic kidney disease; I89.0 Lymphedema, not elsewhere classified; Z66 Do not resuscitate; B96.20 Unspecified Escherichia coli [E. coli] as the cause of diseases classified elsewhere; K21.9 Gastro-esophageal reflux disease without esophagitis; M06.9 Rheumatoid arthritis, unspecified; M81.0 Age-related osteoporosis without current pathological fracture; E86.1 Hypovolemia; I65.23 Occlusion and stenosis of bilateral carotid arteries; E78.5 Hyperlipidemia, unspecified; E03.9 Hypothyroidism, unspecified; Z87.891 Personal history of nicotine dependence; Z20.822 Contact with and (suspected) exposure to COVID-19; Z68.26 Body mass index [BMI] 26.0-26.9, adult
CPT/HCPCS: 36415; 51702; 71045; 78580; 80053; 80162; 80202; 81000; 82550; 82553; 82805; 82947; 83605; 83735; 83874; 83880; 84132; 84443; 84484; 85007; 85025; 85027; 85610; 85652; 85730; 86141; 87040; 87077; 87088; 87186; 87636; 93005; 93041; 93306; 94640; 94660; 94760; 96365; 96375

== ENCOUNTER → 2022-09-23 | Outpatient (CLI) | payer MEDICARE, MEDICAID ==
[~2022-09-23] MED LIST changes: +ACET-2650 PO; +ACID1TAB PO; +CHOL50005 PO; +CYAN500T8 PO; +DIGO125T18 PO; +DILT-27 PO; +FAMO20TA5 PO; +LEVO100T7 PO; +MENT71OI TP; +RIVA15TA2 PO
[2022-09-23 22:10] LABS: BILIRUBIN,URINE NEGATIVE (NEGATIVE); CLARITY,URINE CLOUDY; COLOR,URINE YELLOW; GLUCOSE, URINE (UA) NEGATIVE (NEGATIVE); KETONES,URINE NEGATIVE (NEGATIVE); LEUKOCYTE ESTERASE ,URINE NEGATIVE (NEGATIVE); NITRITE,URINE NEGATIVE (NEGATIVE); PROTEIN,URINE 1+ (NEGATIVE)
[2022-09-23 22:51] LABS: BACTERIA,URINE LARGE /HPF; WBC,URINE RARE /HPF
[2022-09-23 22:52] LABS: AMORPHOUS SEDIMENT,UR LARGE AMOR URATES /LPF; CALCIUM OXALATE CRYSTALS,UR FEW /LPF
== END ==
LOC: LABNPT 22:04
PROVIDERS: ATTEND Family Medicine
DX: Z01.89 Encounter for other specified special examinations (principal)
CPT/HCPCS: 81000; 87077; 87088; 87186

== ENCOUNTER → 2022-09-28 | Outpatient (CLI) | payer MEDICARE, MEDICAID | LOC: WOUNDCARE 10:01 | PROVIDERS: ATTEND Family Medicine | DX: L89.610 Pressure ulcer of right heel, unstageable (principal); I89.0 Lymphedema, not elsewhere classified; D46.4 Refractory anemia, unspecified; M62.81 Muscle weakness (generalized); E55.9 Vitamin D deficiency, unspecified; D51.9 Vitamin B12 deficiency anemia, unspecified; J44.9 Chronic obstructive pulmonary disease, unspecified; I69.320 Aphasia following cerebral infarction; I48.21 Permanent atrial fibrillation; R32 Unspecified urinary incontinence; R00.0 Tachycardia, unspecified | CPT/HCPCS: 99213 ==

== ENCOUNTER 2022-10-01 21:27 | Inpatient (IN) | payer MEDICARE, MEDICAID ==
[~2022-10-01] VITALS: Ht 165.1 cm; Wt 62.8 kg
[~2022-10-01 21:27] MED LIST changes: -ARGI1POW4 PO; -ASCO-262 PO; -CHOL12509 PO; -CYAN500T44 PO; -DILT120C88 PO; -LEVO100C4 PO; -RIVA15TA PO
[2022-10-01] MEDS ORDERED: NS IV 1000 ML 1,000 ML IV SCH (21:45)
[2022-10-01 22:00] LABS: BASOPHILS % (AUTO) 0 % (0-10); EOSINOPHILS # (AUTO) 0.2 10^3/uL (0.0-0.3); EOSINOPHILS % (AUTO) 2 % (0-10); HEMATOCRIT 22 % (35-52); LYMPHOCYTES # (AUTO) 2.6 10^3/uL (1.0-4.0); LYMPHOCYTES % (AUTO) 26 % (12-44); MEAN CORPUSCULAR HEMOGLOBIN 30 pg (25-34); MEAN CORPUSCULAR HGB CONC 30 g/dL (32-36); MEAN CORPUSCULAR VOLUME 100 fL (80-99); MEAN PLATELET VOLUME 9.4 fL (9.0-12.2); MONOCYTES % (AUTO) 10 % (0-12); NEUTROPHILS # (AUTO) 6.1 10^3/uL (1.8-7.8); NEUTROPHILS % (AUTO) 61 % (42-75); PLATELET COUNT 304 10^3/uL (130-400)
[2022-10-01 22:05] LABS: HEMOGLOBIN 6.5 g/dL (11.5-16.0); INR 3.4 (0.8-1.4); PROTHROMBIN TIME PATIENT 34.2 SEC (12.2-14.7)
[2022-10-01 22:11] LABS: BILIRUBIN,TOTAL 0.4 MG/DL (0.1-1.0); CALCIUM 9.4 MG/DL (8.5-10.1); CREATININE SERUM 2.47 MG/DL (0.60-1.30); MAGNESIUM 1.7 MG/DL (1.6-2.4); POTASSIUM 4.1 MMOL/L (3.6-5.0); TOTAL PROTEIN 8.7 GM/DL (6.4-8.2)
[2022-10-01] MEDS ORDERED: CEFEPIME INJECTION 1,000 MG in NS (IVPB) 50 ML 50 ML IV ONE (22:30)
[2022-10-01 22:32] LABS: TSH (THYROID ANALYZER) 5.51 UIU/ML (0.35-4.94)
[2022-10-01 23:28] LABS: FREE T4 (FREE THYROXINE) 0.9 NG/DL (0.70-1.48)
[2022-10-02] VITALS (12 sets, daily range): BP systolic 100–163; BP diastolic 51–80
[2022-10-02] MEDS: NS IV 1000 ML 1,000 ML IV SCH ×3 (01:57→16:00)
[2022-10-02 03:16] LABS: HEMOGLOBIN 6.9 g/dL (11.5-16.0)
[2022-10-02] MEDS ORDERED: PANTOPRAZOLE 40 MG (PROTONIX) VIAL IV SCH (09:00)
[2022-10-02 09:49] LABS: POTASSIUM 3.9 MMOL/L (3.6-5.0)
[2022-10-02 09:50] LABS: CALCIUM 8.8 MG/DL (8.5-10.1)
[2022-10-02 09:54] LABS: CREATININE SERUM 2.29 MG/DL (0.60-1.30)
[2022-10-02] MEDS ORDERED: CEFEPIME INJECTION 1,000 MG in NS (IVPB) 50 ML 50 ML IV SCH (10:00)
[2022-10-02] MEDS ORDERED: NYSTATIN CREAM (MYCOSTATIN) 30 GM TUBE TP PRN (12:00)
--- NOTE | 2022-10-02 16:58 | History & Physical-Hospitalist ---
History of Present Illness HPI/Chief Complaint Emilee Cui is an 89 year old female with PMH stroke with residual aphasia, dementia, CKD 3b, AFib, HFpEF, who was admitted from [facility] with anemia. She is unable to provide any history due to her aphasia. She was recently discharged there after a hospitalization with sepsis due to UTI. She reportedly had labs done and was found to be anemic. She is awake and alert. She shakes her head yes and no. She denies pain. She denies any complaints. Source: RN/MD Exam Limitations: clinical condition Date Seen 10/02/22 Time Seen by a Provider: 11:45 Attending Physician Eileen Farmer MD PCP Admitting Physician: Rayo Jha MD Attending Physician: Rayo Jha MD Referring Physician Date of Admission Oct 01, 2022 at 22:49 Home Medications & Allergies Home Medications Reviewed patient Home Medication Reconciliation performed by pharmacy medication reconciliations audiovisual aids technician and/or nursing. Patients Allergies have been reviewed. Allergies Allergies Coded Allergies Penicillins (Verified Allergy, Unknown, 06/02/22) codeine (Verified Adverse Reaction, Unknown, NAUSEA, 06/02/22) Past Rkcsffp-Wvdrkp-Ayczta Hx Patient Social History Tobacco Use?: No Smoking Status: Never a Smoker Smokeless Tobacco Frequency: Never a User Use of E-Cig and/or Vaping dev: No Use of E-Cig and/or Vaping Harry: Never a User Substance use?: Unable to obtain Alcohol Use?: Unable to obtain Pt feels they are or have been: Unable to obtain Immunizations Up To Date Date of Influenza Vaccine: Jan 14, 2022 First/Initial COVID19 Vaccinat: X4 Second COVID19 Vaccination Sonu: X4 Tetanus Booster (TDap): Unknown Seasonal Allergies Seasonal Allergies: Yes Current Status Advance Directives: Yes Advance Directive Location: Copy placed in chart Communicates: Does Not Communicate Primary Language: Ugandan Preferred Spoken Language: Ugandan Is interpretation needed?: No Past Medical History Surgeries: Hysterectomy COPD Currently Using CPAP: No Currently Using BIPAP: No Atrial Fibrillation, Chronic Edema/Swelling, Hypertension 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, 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 Sexually Transmitted Disease: No Gastroesophageal Reflux, Diverticulosis, Chronic Diarrhea Osteoporosis, Rheumatoid Arthritis Cataract Loss of Vision: Right Hearing Impairment: Hard of Hearing Skin Did You Recieve Any Treatments: Yes What Type of Treatment Did You: Surgical Intervention Blood Disorders: No Adverse Reaction/Blood Tranf: No Family Medical History No Pertinent Family Hx Review of Systems Constitutional: see HPI Physical Exam Physical Exam Vital Signs Vital Signs - First Documented 10/01/22 21:30 Temp 36.2 Pulse 107 Resp 15 B/P (MAP) 112/64 (80) Pulse Ox 100 O2 Delivery Nasal Cannula O2 Flow Rate 4.00 Capillary Refill : Less Than 3 Seconds Height, Weight, BMI Height: 5'1.00" Weight: 154lbs. 5.0oz. 69.641177fy; 23.03 BMI Method: General Appearance: No Apparent Distress, WD/WN HEENT: PERRL/EOMI, Pharynx Normal Neck: Normal Inspection, Supple Respiratory: Lungs Clear, No Respiratory Distress Cardiovascular: Regular Rate, Rhythm, No Murmur Gastrointestinal: Normal Bowel Sounds, Non Tender, Soft Extremity: Non Tender, Pedal Edema Neurologic/Psychiatric: Alert, Aphasia Skin: Normal Color, Warm/Dry Results Results/Procedures Labs Laboratory Tests 10/01/22 21:32 10/02/22 03:03 10/02/22 08:15 Patient resulted labs reviewed. Assessment/Plan Admission Diagnosis Anemia Admission Status: Observation Assessment and Plan Acute on chronic anemia Hgb 6.5 on arrival, baseline 7-8 from previous admission s/p 2 units PRBC Hgb improved to 8 No evidence of acute blood loss Occult blood ordered Iron studies pending Hold Xarelto PHOENIX on CKD 3b Gentle IV fluids Monitor AFib Holding Xarelto Continue other meds HTN HLD Hypothyroidism HFpEF History of stroke with residual aphasia Continue home meds as able Diagnosis/Problems Diagnosis/Problems (1) Anemia Status: Acute (2) Acute kidney injury superimposed on chronic kidney disease Status: Acute (3) History of stroke with residual effects Status: Chronic (4) Dementia Status: Chronic (5) HTN (hypertension) Status: Chronic (6) Afib Status: Chronic Qualifiers: Atrial fibrillation type: paroxysmal Qualified Codes: I48.0 - Paroxysmal atrial fibrillation (7) Hypothyroidism Status: Chronic RAYO JHA MD Oct 02, 2022 16:57
[2022-10-02] MEDS: COLESTIPOL 1 GM (COLESTID) TAB PO SCH (20:18)
[2022-10-02] MEDS: MENTHOL/ZINC OXIDE OINTMENT 113 GM TUBE TP SCH (20:18)
[2022-10-02] MEDS: PANTOPRAZOLE 40 MG (PROTONIX) VIAL IV SCH (20:18)
[2022-10-03] MEDS: NS IV 1000 ML 1,000 ML IV SCH (02:51)
[2022-10-03 04:13] VITALS: BP 139/68
[2022-10-03 06:23] LABS: POTASSIUM 3.7 MMOL/L (3.6-5.0)
[2022-10-03 06:24] LABS: CALCIUM 8.3 MG/DL (8.5-10.1)
[2022-10-03 06:29] LABS: CREATININE SERUM 2.08 MG/DL (0.60-1.30)
[2022-10-03 07:22] VITALS: BP 131/79
[2022-10-03] MEDS: LEVOTHYROXINE 100 MCG (LEVOTHROID) TAB PO SCH (07:22)
--- NOTE | 2022-10-03 07:57 | Consultation-Cardiology ---
HPI-Cardiology Cardiology Consultation: Date of Consultation 10/03/22 Time Seen by a Provider: 09:00 Date of Admission 10-02-22 Attending Physician Eileen Farmer MD Admitting Physician Admitting Physician: Criss Gary MD Attending Physician: Criss Gary MD Consulting Physician Baron Gray MD Primary Medical Claims Examiner: Dr. Shah HPI: Chief Complaint: Chronic a-fib Anemia Ms. Cui is an 89 yr old female admitted to [facility] from [facility] where she resides with anemia. She has a h/o CVA with expressive aphasia and is unable to provide any information. She does not provide any response to questions. She does smile when her name is called. Review of chart has been completed. Review of Systems-Cardiology Review of Systems Other comments Unable to obtain any information. Please see HPI LVW-Syecob-Bjulou Hx Patient Social History Smoking Status: Never a Smoker 2nd Hand Smoke Exposure: Yes Alcohol Use?: Unable to obtain Pt feels they are or have been: Unable to obtain Immunizations Up To Date Tetanus Booster (TDap): Unknown Date of Influenza Vaccine: Jan 14, 2022 Past Medical History PMH As described under Assessment. Family Medical History Family Medical History: Unable to provide any information Allergies and Home Medications Allergies Coded Allergies: Penicillins (Verified Allergy, Unknown, 06/02/22) codeine (Verified Adverse Reaction, Unknown, NAUSEA, 06/02/22) Patient Home Medication List Arginine/Glutamine/Calcium Hmb (Rajeev Packet) 7 Gram-7 Gram-1.5 Gram Powd.pack, 1 EACH PO BID, (Reported) Entered as Reported by: ANTONELLA GRIFFIN on 10/03/22901 Last Action: Reviewed Ascorbate Calcium (Vitamin C) 500 Mg Tablet, 500 MG PO BID, (Reported) Entered as Reported by: ANTONELLA GRIFFIN on 10/03/22 0859 Last Action: Reviewed Atorvastatin Calcium (Atorvastatin Calcium) 10 Mg Tablet, 10 MG PO HS, (Reported) Entered as Reported by: ANTONELLA GRIFFIN on 10/03/22911 Last Action: Reviewed Cholecalciferol (Vitamin D3) (Vitamin D3) 1,250 Mcg (30237 Unit) Tablet, 1,250 MCG PO WEEKLY, (Reported) Entered as Reported by: ANTONELLA GRIFFIN on 10/03/22916 Last Action: Reviewed Colestipol HCl (Colestipol HCl) 1 Gram Tablet, 1 GM PO HS, (Reported) Entered as Reported by: ANTONELLA GRIFFIN on 10/03/22913 Last Action: Reviewed Cyanocobalamin (Vitamin B-12) (B-12) 500 Mcg Tablet, 500 MCG PO DAILY, (Reported) Entered as Reported by: ANTONELLA GIRFFIN on 10/03/22913 Last Action: Reviewed Digoxin (Digoxin) 125 Mcg (0.125 Mg) Tablet, 125 MCG PO DAILY, (Reported) Entered as Reported by: ANTONELLA GRIFFIN on 10/03/22912 Last Action: Reviewed Diltiazem HCl (Diltiazem 24Hr Cd) 120 Mg Cap.er.24h, 120 MG PO DAILY, (Reported) Entered as Reported by: ANTONELLA GRIFFIN on 10/03/22910 Last Action: Reviewed Famotidine (Acid Laboratory Chemical Assistant (FAMOTIDINE)) 10 Mg Tablet, 10 MG PO BID, (Reported) Entered as Reported by: ANTONELLA GRIFFIN on 10/03/22907 Last Action: Reviewed Furosemide (Furosemide) 20 Mg Tablet, 20 MG PO DAILY, (Reported) Entered as Reported by: ANTONELLA GRIFFIN on 10/03/22907 Last Action: Reviewed Furosemide (Furosemide) 20 Mg Tablet, 20 MG PO DAILY PRN for EDEMA, (Reported) Entered as Reported by: ANTONELLA GRIFFIN on 10/03/22908 Last Action: Reviewed L. Acidophilus/Bulgaricus (Floranex Tablet) 1 Million Cell Tablet, 1 EACH PO BID, (Reported) Entered as Reported by: ANTONELLA GRIFFIN on 10/03/22908 Last Action: Reviewed Levothyroxine Sodium (Levothyroxine) 100 Mcg Capsule, 100 MCG PO DAILY, (Reported) Entered as Reported by: ANTONELLA GRIFFIN on 10/03/22906 Last Action: Reviewed Menthol/Lanolin/Calamine/Znox (Calmoseptine Ointment) 0.44 %-20.6 % Oint, 1 APPLIC TP BID, (Reported) Entered as Reported by: ANTONELLA GRIFFIN on 10/03/22902 Last Action: Reviewed Metoprolol Succinate (Metoprolol Succinate) 25 Mg Tab.er.24h, 12.5 MG PO DAILY, (Reported) Entered as Reported by: ANTONELLA GRIFFIN on 10/03/22914 Last Action: Reviewed Nystatin (Nystatin) 100,000 Unit/Gram Powder, 1 APPLIC TP TID, (Reported) Entered as Reported by: ANTONELLA GRIFFIN on 10/03/22903 Last Action: Reviewed Nystatin (Nystatin) 100,000 Unit/Gram Cream..g., 1 APPLIC TP BID, (Reported) Entered as Reported by: ANTONELLA GRIFFIN on 10/03/22905 Last Action: Reviewed Rivaroxaban (Xarelto) 15 Mg Tablet, 15 MG PO DAILY, (Reported) Entered as Reported by: ANTONELLA GRIFFIN on 10/03/22905 Last Action: Reviewed Physical Exam-Cardiology Physical Exam Vital Signs/I&O 10/03/22 10/03/22 10/03/22 10/03/22 07:00 07:22 08:33 11:01 Temp 36.9 37.0 Pulse 105 99 99 Resp 18 20 B/P (MAP) 131/79 (96) 115/57 (76) Pulse Ox 93 94 O2 Delivery Nasal Cannula Nasal Cannula Nasal Cannula O2 Flow Rate 2.00 2.00 2.00 10/03/22 10/03/22 12:41 16:51 Temp 37.2 Pulse 83 99 Resp 20 B/P (MAP) 132/75 (94) Pulse Ox 90 O2 Delivery Nasal Cannula O2 Flow Rate 2.00 10/03/22 00:00 Intake Total 1440 ml Balance 1440 ml Capillary Refill : Less Than 3 Seconds Constitutional: well-developed, well-nourished, other (expressive aphasia; smiles when name is called) HEENT: No xanthelasmas are seen Neck: No carotid bruit; carotid pulses are 2 + bilaterally Respiratory: No accessory muscle use, No respiratory distress; chest expansion is symmetric, chest is bilaterally symmetric, lungs clear to auscultation Cardiovascular: irregularly irregular; No JVD; S1 and S2 Gastrointestinal: soft; No guarding; audible bowel sounds Extremities: no lower extremity edema bilateral Neurologic/Psychiatric: other (moves extremities) Skin: No rash on exposed areas, No ulcerations on exposed areas Data Review Labs Laboratory Tests 10/03/22 05:34: Sodium Level 138, Potassium Level 3.7, Chloride Level 108H, Carbon Dioxide Level 22, Anion Gap 8, Blood Urea Nitrogen 44H, Creatinine 2.08H, Estimat Glomerular Filtration Rate 22, BUN/Creatinine Ratio 21, Glucose Level 82, Calcium Level 8.3L 10/03/22 06:15: Hemoglobin 8.0L, Hematocrit 25L 10/03/22 11:34: Stool Occult Blood Immunoassay POSITIVEH 10/03/22 13:13: Lab Scanned Report Transfusion Reaction Form A/P-Cardiology Assessment/Admission Diagnosis Anemia - management per medical services CKD 3 Chronic atrial fibrillation, rate is controlled, maintained on Cardizem, digoxin, Xarelto - Xarelto currently being withheld d/t anemia COPD Congestive heart failure, chronic compensated left ventricular diastolic dysfunction with ejection fraction 50% Unable to tolerate JACINTO inhibitor and/or ARB due to hypotension in the past 2D Echo done on August 21, [address] Shah with ejection fraction 65%, severe pulmonary hypertension with PA 70 to 75 mmHg, dilated right heart chambers with wide open tricuspid regurgitation Pulmonary HTN, Echo of 08-21-[address] Shah showed PASP 70-75 mmHg Coronary artery disease, - Last cardiac catheterization done in 2010 - reporting minor disease nonobstr uctive disease Hypertension History of CVA in the past - residual expressive aphasia Mild bilateral carotid stenosis Hyperlipidemia Hypothyroidism followed and managed by primary care physician History of syncope Peripheral edema History of tobaccoism in the past. Discussion and Recomendations Anemia - management per medical services Chronic a-fib with h/o CVA with residual expressive aphasia - xarelto currently being withheld d/t anemia - advise source of bleeding be determined and treated so that OAC may be resumed - continue Cardizem, BB and Dig Monitor lab closely Further recs will be based on her hospital course We would like to thank medical services for this consult FRANCESCA OSEGUERA Oct 03, 2022 07:57
[2022-10-03] MEDS: DIGOXIN 0.125 MG (LANOXIN) TAB PO SCH (08:26)
[2022-10-03] MEDS: dilTIAZem120 MG (CARDIZEM CD) CAP PO SCH (08:26)
[2022-10-03] MEDS: PANTOPRAZOLE 40 MG (PROTONIX) VIAL IV SCH ×2 (08:26→20:25)
[2022-10-03] MEDS: MENTHOL/ZINC OXIDE OINTMENT 113 GM TUBE TP SCH ×2 (08:27→21:10)
[2022-10-03] MEDS ORDERED: ASCO-262 PO (08:59)
[2022-10-03] MEDS ORDERED: ARGI1POW4 PO (09:02)
[2022-10-03] MEDS ORDERED: MENT71OI TP (09:03)
[2022-10-03] MEDS ORDERED: NYST15PO4 TP (09:04)
[2022-10-03] MEDS ORDERED: NYST15CR35 TP (09:06)
[2022-10-03] MEDS ORDERED: RIVA15TA PO (09:06)
[2022-10-03] MEDS ORDERED: LEVO100C4 PO (09:07)
[2022-10-03] MEDS ORDERED: FURO20TA4 PO ×2 (09:08→09:09)
[2022-10-03] MEDS ORDERED: FAMO-144 PO (09:08)
[2022-10-03] MEDS ORDERED: ACID1TAB PO (09:09)
[2022-10-03] MEDS ORDERED: DILT120C88 PO (09:11)
[2022-10-03] MEDS ORDERED: ATOR10TA66 PO (09:12)
[2022-10-03] MEDS ORDERED: DIGO125T3 PO (09:13)
[2022-10-03] MEDS ORDERED: COLE1TAB PO (09:14)
[2022-10-03] MEDS ORDERED: CYAN500T44 PO (09:14)
[2022-10-03] MEDS ORDERED: MTP25TSR PO (09:15)
[2022-10-03] MEDS ORDERED: CHOL12509 PO (09:17)
[2022-10-03 11:01] VITALS: BP 115/57
[2022-10-03] MEDS ORDERED: HYPOCHLOROUS ACID/NaCl (VASHE) 250 ML IR SCH (12:45)
--- NOTE | 2022-10-03 13:28 | Consultation-Cardiology ---
HPI-Cardiology Cardiology Consultation: Date of Consultation 10/03/22 Time Seen by a Provider: 10:20 Date of Admission Attending Physician Eileen Farmer MD Admitting Physician Admitting Physician: Criss Gary MD Attending Physician: Criss Gary MD Consulting Physician MARIA ANTONIA GAUTHIER MD, MA, FACP, FACC, FSCAI, CCDS HPI: Chief Complaint: Chronic a-fib Anemia Ms. Cui is an 89 yr old female admitted to [facility] from [facility] where she resides with anemia. She has a h/o CVA with expressive aphasia and is unable to provide any information. She does not provide any response to questions. She does smile when her name is called. Review of chart has been completed. Review of Systems-Cardiology Review of Systems Constitutional: other (She is unable to provide a reliable ROS) KEF-[id number]-Knoxfg Hx Patient Social History Smoking Status: Never a Smoker 2nd Hand Smoke Exposure: Yes Alcohol Use?: Unable to obtain Pt feels they are or have been: Unable to obtain Immunizations Up To Date Tetanus Booster (TDap): Unknown Date of Influenza Vaccine: Jan 14, 2022 Past Medical History PMH As described under Assessment. Family Medical History Family Medical History: Unable to provide any information Allergies and Home Medications Allergies Coded Allergies: Penicillins (Verified Allergy, Unknown, 06/02/22) codeine (Verified Adverse Reaction, Unknown, NAUSEA, 06/02/22) Patient Home Medication List Home Medication List Reviewed: Yes Arginine/Glutamine/Calcium Hmb (Rajeev Packet) 7 Gram-7 Gram-1.5 Gram Powd.pack, 1 EACH PO BID, (Reported) Entered as Reported by: ANTONELLA GRIFFIN on 10/03/22901 Last Action: Reviewed Ascorbate Calcium (Vitamin C) 500 Mg Tablet, 500 MG PO BID, (Reported) Entered as Reported by: ANTONELLA GRIFFIN on 10/03/22 0859 Last Action: Reviewed Atorvastatin Calcium (Atorvastatin Calcium) 10 Mg Tablet, 10 MG PO HS, (Reported) Entered as Reported by: ANTONELLA GRIFFIN on 10/03/22 0912 Last Action: Reviewed Cholecalciferol (Vitamin D3) (Vitamin D3) 1,250 Mcg (85095 Unit) Tablet, 1,250 MCG PO WEEKLY, (Reported) Entered as Reported by: ANTONELLA GRIFFIN on 10/03/22 09 Last Action: Reviewed Colestipol HCl (Colestipol HCl) 1 Gram Tablet, 1 GM PO HS, (Reported) Entered as Reported by: ANTONELLA GRIFFIN on 10/03/22913 Last Action: Reviewed Cyanocobalamin (Vitamin B-12) (B-12) 500 Mcg Tablet, 500 MCG PO DAILY, (Reported) Entered as Reported by: ANTONELLA GRIFFIN on 10/03/22913 Last Action: Reviewed Digoxin (Digoxin) 125 Mcg (0.125 Mg) Tablet, 125 MCG PO DAILY, (Reported) Entered as Reported by: ANTONELLA GRIFFIN on 10/03/22912 Last Action: Reviewed Diltiazem HCl (Diltiazem 24Hr Cd) 120 Mg Cap.er.24h, 120 MG PO DAILY, (Reported) Entered as Reported by: ANTONELLA GRIFFIN on 10/03/22910 Last Action: Reviewed Famotidine (Acid Flakeboard Line Tender (FAMOTIDINE)) 10 Mg Tablet, 10 MG PO BID, (Reported) Entered as Reported by: ANTONELLA GRIFFIN on 10/03/22907 Last Action: Reviewed Furosemide (Furosemide) 20 Mg Tablet, 20 MG PO DAILY, (Reported) Entered as Reported by: ANTONELLA GRIFFIN on 10/03/22907 Last Action: Reviewed Furosemide (Furosemide) 20 Mg Tablet, 20 MG PO DAILY PRN for EDEMA, (Reported) Entered as Reported by: ANTONELLA GRIFFIN on 10/03/22908 Last Action: Reviewed L. Acidophilus/Bulgaricus (Floranex Tablet) 1 Million Cell Tablet, 1 EACH PO BID, (Reported) Entered as Reported by: ANTONELLA GRIFFIN on 10/03/22908 Last Action: Reviewed Levothyroxine Sodium (Levothyroxine) 100 Mcg Capsule, 100 MCG PO DAILY, (Reported) Entered as Reported by: ANTONELLA GRIFFIN on 10/03/22906 Last Action: Reviewed Menthol/Lanolin/Calamine/Znox (Calmoseptine Ointment) 0.44 %-20.6 % Oint, 1 APPLIC TP BID, (Reported) Entered as Reported by: ANTONELLA GRIFFIN on 10/03/22902 Last Action: Reviewed Metoprolol Succinate (Metoprolol Succinate) 25 Mg Tab.er.24h, 12.5 MG PO DAILY, (Reported) Entered as Reported by: ANTONELLA GRIFFIN on 10/03/22914 Last Action: Reviewed Nystatin (Nystatin) 100,000 Unit/Gram Powder, 1 APPLIC TP TID, (Reported) Entered as Reported by: ANTONELLA GRIFFIN on 10/03/22903 Last Action: Reviewed Nystatin (Nystatin) 100,000 Unit/Gram Cream..g., 1 APPLIC TP BID, (Reported) Entered as Reported by: ANTONELLA GRIFFIN on 10/03/22905 Last Action: Reviewed Rivaroxaban (Xarelto) 15 Mg Tablet, 15 MG PO DAILY, (Reported) Entered as Reported by: ANTONELLA GRIFFIN on 10/03/22905 Last Action: Reviewed Physical Exam-Cardiology Physical Exam Vital Signs/I&O 10/03/22 10/03/22 10/03/22 10/03/22 04:13 07:00 07:22 08:33 Temp 36.5 36.9 Pulse 95 105 99 Resp 22 18 B/P (MAP) 139/68 (91) 131/79 (96) Pulse Ox 96 93 94 O2 Delivery Nasal Cannula Nasal Cannula Nasal Cannula O2 Flow Rate 2.00 2.00 2.00 10/03/22 10/03/22 11:01 12:41 Temp 37.0 Pulse 99 83 Resp 20 B/P (MAP) 115/57 (76) O2 Delivery Nasal Cannula O2 Flow Rate 2.00 10/03/22 00:00 Intake Total 1440 ml Balance 1440 ml Capillary Refill : Less Than 3 Seconds Constitutional: well-developed, well-nourished, other (expressive aphasia; smiles when name is called) HEENT: No xanthelasmas are seen Neck: No carotid bruit; carotid pulses are 2 + bilaterally Respiratory: No accessory muscle use, No respiratory distress; chest expansion is symmetric, chest is bilaterally symmetric, lungs clear to auscultation Cardiovascular: irregularly irregular; No JVD; S1 and S2 Gastrointestinal: soft; No guarding; audible bowel sounds Extremities: no lower extremity edema bilateral Neurologic/Psychiatric: other (moves extremities) Skin: No rash on exposed areas, No ulcerations on exposed areas Data Review Labs Laboratory Tests 10/03/22 05:34: Sodium Level 138, Potassium Level 3.7, Chloride Level 108H, Carbon Dioxide Level 22, Anion Gap 8, Blood Urea Nitrogen 44H, Creatinine 2.08H, Estimat Glomerular Filtration Rate 22, BUN/Creatinine Ratio 21, Glucose Level 82, Calcium Level 8.3L 10/03/22 06:15: Hemoglobin 8.0L, Hematocrit 25L 10/03/22 11:34: Stool Occult Blood Immunoassay POSITIVEH 10/03/22 13:13: Lab Scanned Report Transfusion Reaction Form A/P-Cardiology Assessment/Admission Diagnosis Anemia - management per medical services CKD 3 Chronic atrial fibrillation, rate is controlled, maintained on Cardizem, digoxin, Xarelto - Xarelto currently being withheld d/t anemia COPD Congestive heart failure, chronic compensated left ventricular diastolic dysfunction with ejection fraction 50% Unable to tolerate JACINTO inhibitor and/or ARB due to hypotension in the past 2D Echo done on August 21, [address] Shah with ejection fraction 65%, severe pulmonary hypertension with PA 70 to 75 mmHg, dilated right heart chambers with wide open tricuspid regurgitation Pulmonary HTN, Echo of 08-21-[address] 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 Discussion and Recomendations Anemia - management per medical services Chronic a-fib with h/o CVA with residual expressive aphasia - xarelto currently being withheld d/t anemia - advise source of bleeding be determined and treated so that OAC may be resumed - continue Cardizem, BB and Dig Monitor lab closely Further recs will be based on her hospital course We would like to thank medical services for this consult MARIA ANTONIA GAUTHIER MD FACP FAC CCDS Oct 03, 2022 13:28
[2022-10-03] MEDS ORDERED: VANCOMYCIN INJECTION 0.1 MG in NS (IVPB) 250 ML 250 ML IV SCH (13:45)
[2022-10-03] MEDS ORDERED: VANCOMYCIN 1250 MG/NS 250 ML PREMIX IV ONE (14:00)
--- NOTE | 2022-10-03 14:11 | Progress Note - Hospitalist ---
Subjective HPI/CC On Admission Emilee Cui is an 89 year old female with PMH stroke with residual aphasia, dementia, CKD 3b, AFib, HFpEF, who was admitted from [facility] with anemia. She is unable to provide any history due to her aphasia. She was recently discharged there after a hospitalization with sepsis due to UTI. She reportedly had labs done and was found to be anemic. She is awake and alert. She shakes her head yes and no. She denies pain. She denies any complaints. Subjective/Events-last exam Pt is aphasic. She just smiles and nods her head to communicate but this does nto always seem appropriate. She mostly just nods her head yes to every questions (even contradictory ones). RN reports not new concerns. Objective Exam Vital Signs Vital Signs Date Time Temp Pulse Resp B/P (MAP) Pulse Ox O2 Delivery O2 Flow Rate FiO2 10/03/22 12:41 83 10/03/22 11:01 37.0 20 115/57 (76) Nasal Cannula 2.00 10/03/22 08:33 94 Capillary Refill : Less Than 3 Seconds General Appearance: No Apparent Distress, Chronically ill Cardiovascular: Regular Rate, Rhythm Gastrointestinal: Normal Bowel Sounds, Soft Neurologic/Psychiatric: Alert, Aphasia, Disoriented Results/Procedures Lab Laboratory Tests 10/03/22 05:34 10/03/22 06:15 Patient resulted labs reviewed. Assessment/Plan Assessment and Plan Assess & Plan/Chief Complaint Acute on chronic anemia Hgb near baseline s/p 2 units PRBC No evidence of acute blood loss Occult blood positive Surgery consulted, appreciate recs Iron studies pending Hold Xarelto [place] on CKD 3b Improved today DC IVF as is drinking well AFib Holding Xarelto Continue other meds HTN HLD Hypothyroidism HFpEF History of stroke with residual aphasia Continue home meds as able MANDY DIA MD Oct 03, 2022 14:11
--- NOTE | 2022-10-03 15:39 | Wound Care Assessment ---
Wound Care Assessment Date Seen by Provider: Oct 03, 2022 Time Seen by Provider: 11:30 Chief Complaint 1. L. hip ulcer 2. R. heel ulcer 3. L. 3 finger cellulitis HPI This 89 year old patient is well known to my outpatient clinic. She has a remote h/o CVA with resulting expressive aphasia (and vascular dementia). As such, she is unable to provide history. Her wound healing is complicated by: anemia (recently transfused 2 U PRBC's), COPD, CAD with atrial fibrillation and CHF, CKD, moderate PEM and immobility/weakness. The ulcer to her R. heel is unchanged from last office visit and is with stable eschar. We will continue to paint with betadine. She has new ulceration to her L. hip which is unstageable. The eschar is unstable and will be treated with bid santyl and off loading. She does also have an apparent cellulitis to her L. 3rd finger. Culture from hip with moderate MRSA. She is being appropriately treated with Vancomycin (pharmacy dosed). Past Medical History: Admits Heart Disease, Admits Peripheral Artery Disease, Admits Cancer, Treaments Smoking Status: Never a Smoker Recreational Drug Use: No Alcohol Use: Denies Use Review of Systems Other systems Unable to obtain due to mental status/aphasia Exam Vital Signs Date Time Temp Pulse Resp B/P (MAP) Pulse Ox O2 Delivery O2 Flow Rate FiO2 10/03/22 12:41 83 10/03/22 11:01 37.0 20 115/57 (76) Nasal Cannula 2.00 10/03/22 08:33 94 Capillary Refill : Less Than 3 Seconds General Appearance: WD/WN, no apparent distress Neck: full range of motion Cardiovascular: no edema Respiratory: no respiratory distress, no accessory muscle use Extremities: pedal edema Neurologic/Psychiatric: alert, other (unable to assess orientation fully) Skin Character: drainage (L. hip), erythema (L. 3 finger), swelling (L. 3 finger), tenderness (. 3 finger and L. hip) Wound assessment: 1. R. heel: 1.8x1.8x0.1. The epithelialization is none. There is no tunneling or undermining. Drainage is none. Granulation is none. Necrotic is large and eschar. Margins are flat 2. L. hip: 7x3.8x0.1. The epithelialization is none. There is no tunneling or undermining. Drainage is medium and purulent. Granulation is none. Necrotic is large and eschar. The margins are flat Results Laboratory Tests 10/03/22 05:34: Sodium Level 138, Potassium Level 3.7, Chloride Level 108H, Carbon Dioxide Level 22, Anion Gap 8, Blood Urea Nitrogen 44H, Creatinine 2.08H, Estimat Glomerular Filtration Rate 22, BUN/Creatinine Ratio 21, Glucose Level 82, Calcium Level 8.3L 10/03/22 06:15: Hemoglobin 8.0L, Hematocrit 25L 10/03/22 11:34: Stool Occult Blood Immunoassay POSITIVEH 10/03/22 13:13: Lab Scanned Report Transfusion Reaction Form Assessment/Plan/Dx Assessment: 1. Unstageable pressure ulcer L. hip 2. Unstageable pressure ulcer R. heel 3. L. 3 finger cellulitis 4. Anemia (s/p 2 U PRBC's) 5. Moderate PEM 6. CKD stage 4 7. CAD with atrial fibrillation 8. COPD Plan: 1. Santyl with Allevyn BFD bid and off loading 2. [place] with betadyne bid and Allevyn with Primo 3. Antibiotics as already implemented 4. Per primary team 5. Protein shakes with meals 6. Defer to primary 7. Defer to primary 8. Defer to primary LIV JAVIER MD Oct 03, 2022 15:39
[2022-10-03 16:51] VITALS: BP 132/75
--- NOTE | 2022-10-03 17:35 | CONSULTATION REPORT ---
DATE OF SERVICE: 10/03/2022 ATTENDING PRIMARY CARE PHYSICIAN: Dr. Eileen Farmer. ADMITTING PHYSICIAN: Dr. Criss Gary. HISTORY OF PRESENT ILLNESS: The patient is an 89-year-old female who was admitted from an extended care facility due to weakness and found to be anemic. She has a history of a CVA and does have expressive aphasia and also does not ambulate well. She is unable to give any information. Majority of information was accrued through the patient's electronic medical records. On this admission, she was found to be anemic with initial hemoglobin of 6.5. She did receive 2 units of packed red blood cells and her hemoglobin has gone up appropriately. She was found to be Hemoccult positive. There is no mention of any episodes of nausea nor vomiting as well as no hematemesis, no coffee-ground emesis. She is fecal incontinent and during examination, she was being changed and there did not appear to be any dark tarry stools or any red blood mixed in with her bowel movement. She is on rivaroxaban 15 mg daily for her history of stroke. PAST MEDICAL HISTORY: Coronary artery disease, hypertension, congestive heart failure, diastolic dysfunction, peripheral vascular disease with bilateral carotid stenosis, bilateral lower extremity edema, history of cerebrovascular accident, COPD. PAST SURGICAL HISTORY: Unknown at this time. SOCIAL HISTORY: Negative smoke, negative alcohol. FAMILY HISTORY: Noncontributory. VITAL SIGNS: Temperature 37.2, blood pressure 132/75, pulse 99, respirations 20, pulse ox 90% on 2 liters nasal cannula. REVIEW OF SYSTEMS: Well-nourished, elderly female who is responsive to voice and touch; however, does not verbalize. At this time, she does not appear to be in any acute distress. No labored breathing or use of accessory muscles. No cough or sputum production. No signs of any cardiac chest pain, no history of nausea, nor vomiting. She just did have a bowel movement, which was brown. No red blood per rectum nor any dark tarry stools. No known fevers or chills as well as no recent inadvertent weight loss. All other review of systems negative. PHYSICAL EXAMINATION: CHEST: Scattered rales and rhonchi bilaterally. HEART: Regular. No murmurs. EXTREMITIES: No lower extremity edema. Negative Homans sign. HEENT: No scleral icterus. No cervical lymphadenopathy. ABDOMEN: Soft, nontender, nondistended. SKIN: Warm, dry. LABORATORY DATA: WBC 10.0, hemoglobin 8.0, hematocrit 25, platelets 15.9. BUN 44, creatinine 2.08. INR 3.4. ASSESSMENT AND PLAN: An 89-year-old female with anemia with Hemoccult-positive stools. It is unsure when she had her last colonoscopy and it appears that she did have a history of peptic ulcer disease and reflux in the past. She also has a history of a cerebrovascular accident and is currently on rivaroxaban 15 mg daily and does have a therapeutic INR at 3.4. It does not appear that she is clinically bleeding; however, she may be losing small amounts over time, causing the anemia. There is also no family around and we will recommend continued conservative management for now; however, if they do want to proceed with endoscopy, we will explain the risks and benefits of the procedure and proceed with this, this is something she would be amenable to it. Job ID: [id number] DocumentID: [id number] Dictated Date: 10/03/2022 17:11:46 Terry Cloth Cutter Hand Date: 10/03/2022 17:33:00 Dictated By: ANAYA BEJARANO MD
[2022-10-03 19:42] VITALS: BP 122/73
[2022-10-03] MEDS: COLESTIPOL 1 GM (COLESTID) TAB PO SCH (20:25)
[2022-10-03] MEDS: COLLAGENASE OINTMENT 30 GM TUBE TP SCH (21:10)
[2022-10-03 23:45] VITALS: BP 119/63
[2022-10-04 03:42] VITALS: BP 128/67
[2022-10-04 06:03] LABS: HEMOGLOBIN 7.7 g/dL (11.5-16.0)
[2022-10-04] MEDS: LEVOTHYROXINE 100 MCG (LEVOTHROID) TAB PO SCH (06:08)
[2022-10-04 06:16] LABS: POTASSIUM 3.7 MMOL/L (3.6-5.0)
[2022-10-04 06:17] LABS: CALCIUM 8.5 MG/DL (8.5-10.1)
[2022-10-04 06:21] LABS: CREATININE SERUM 2.1 MG/DL (0.60-1.30)
[2022-10-04 08:16] VITALS: BP 119/57
[2022-10-04] MEDS: DIGOXIN 0.125 MG (LANOXIN) TAB PO SCH (08:22)
[2022-10-04] MEDS: PANTOPRAZOLE 40 MG (PROTONIX) VIAL IV SCH ×2 (08:22→21:22)
[2022-10-04] MEDS: dilTIAZem120 MG (CARDIZEM CD) CAP PO SCH (08:23)
[2022-10-04] MEDS: MENTHOL/ZINC OXIDE OINTMENT 113 GM TUBE TP SCH ×2 (08:23→21:22)
[2022-10-04] MEDS: COLLAGENASE OINTMENT 30 GM TUBE TP SCH ×2 (08:24→21:22)
--- NOTE | 2022-10-04 11:35 | Progress Note - Cardiology ---
Cardiology SOAP Progress Note Subjective: Appears comfortable Does not provide any information Expressive aphasia Objective: I&O/Vital Signs Weight (Pounds): 154 Weight (Ounces): 5.0 Weight (Calculated Kilograms): 69.832314 Constitutional: well-developed, well-nourished, other (expressive aphasia; smiles when name is called) Respiratory: No accessory muscle use, No respiratory distress; chest expansion is symmetric, chest is bilaterally symmetric, lungs clear to auscultation Cardiovascular: irregularly irregular; No JVD; S1 and S2 Gastrointestional: soft; No guarding; audible bowel sounds Extremities: no lower extremity edema bilateral Neurologic/Psychiatric: other (moves extremities) Skin: No rash on exposed areas, No ulcerations on exposed areas Results/Procedures: Labs A/P: Assessment: Anemia - management per medical services CKD 3 Chronic atrial fibrillation, rate is controlled, maintained on Cardizem, digo william, Xarelto - Xarelto currently being withheld d/t anemia COPD Congestive heart failure, chronic compensated left ventricular diastolic dysfunction with ejection fraction 50% Unable to tolerate JACINTO inhibitor and/or ARB due to hypotension in the past 2D Echo done on August 21, [address] Shah with ejection fraction 65%, severe pulmonary hypertension with PA 70 to 75 mmHg, dilated right heart chambers with wide open tricuspid regurgitation Pulmonary HTN, Echo of 08-21-[address] 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 Plan: Anemia - management per medical services Chronic a-fib with h/o CVA with residual expressive aphasia - xarelto currently being withheld d/t anemia - advise source of bleeding be determined and treated so that OAC may be resumed - continue Cardizem, BB and Dig Monitor lab closely FRANCESCA OSEGUERA Oct 04, 2022 11:35
[2022-10-04 12:14] VITALS: BP 108/61
[2022-10-04] MEDS ORDERED: TROUGH ORDER-PHARMACY XX ONE (13:00)
--- NOTE | 2022-10-04 13:17 | Progress Note - Hospitalist ---
Subjective HPI/CC On Admission Date Seen by Provider: Oct 04, 2022 Emilee Cui is an 89 year old female with PMH stroke with residual aphasia, dementia, CKD 3b, AFib, HFpEF, who was admitted from [facility] with anemia. She is unable to provide any history due to her aphasia. She was recently discharged there after a hospitalization with sepsis due to UTI. She reportedly had labs done and was found to be anemic. She is awake and alert. She shakes her head yes and no. She denies pain. She denies any complaints. Subjective/Events-last exam Pt unable to provide ROS due to aphasia. No family at bedside. Attempted to call daughter at number listed in chart and on wall but no answer. RN reports she is doing ok. No new concerns. Objective Exam Vital Signs Vital Signs Date Time Temp Pulse Resp B/P (MAP) Pulse Ox O2 Delivery O2 Flow Rate FiO2 10/04/22 12:14 36.4 102 18 108/61 (77) 98 OxyMask 2.00 Capillary Refill : Less Than 3 Seconds General Appearance: No Apparent Distress, Chronically ill Respiratory: Lungs Clear, No Respiratory Distress Cardiovascular: No Murmur, Irregularly Irregular Gastrointestinal: Normal Bowel Sounds, Soft Neurologic/Psychiatric: Alert, Oriented x3 Results/Procedures Lab Laboratory Tests 10/04/22 05:34 Patient resulted labs reviewed. Assessment/Plan Assessment and Plan Assess & Plan/Chief Complaint Acute on chronic anemia Hgb 7.7- near baseline s/p 2 units PRBC No evidence of acute blood loss Occult blood positive Surgery consulted, appreciate recs Iron studies with normal iron and low TIBC Hold Xarelto [place] on CKD 3b Stable 2.1 AFib Holding Xarelto Continue other meds HTN HLD Hypothyroidism HFpEF History of stroke with residual aphasia Continue home meds as able MANDY DIA MD Oct 04, 2022 13:17
--- NOTE | 2022-10-04 14:06 | Progress Note ---
Subjective Date Seen by a Provider: Oct 04, 2022 Time Seen by a Provider: 13:00 Subjective/Events-last exam doing ok. hb stable. no signs clinical bleed. no apparent acute distress. Objective Exam Vital Signs Date Time Temp Pulse Resp B/P (MAP) Pulse Ox O2 Delivery O2 Flow Rate FiO2 10/04/22 13:00 90 10/04/22 12:14 36.4 102 18 108/61 (77) 98 OxyMask 2.00 10/04/22 08:16 36.7 95 16 119/57 (77) OxyMask 2.50 10/04/22 08:00 95 OxyMask 2.00 10/04/22 03:42 36.7 98 18 128/67 (87) 96 OxyMask 4.00 4.00 10/04/22 01:00 94 10/03/22 23:45 36.8 96 18 119/63 (81) 92 OxyMask 4.00 4.00 10/03/22 20:00 91 OxyMask 4.00 10/03/22 19:42 37.4 103 20 122/73 (89) 91 OxyMask 4.00 10/03/22 19:00 116 10/03/22 16:51 37.2 99 20 132/75 (94) 90 Nasal Cannula 2.00 I & O 10/04/22 07:00 Intake Total 1220 ml Balance 1220 ml Capillary Refill : Less Than 3 Seconds General Appearance: No Apparent Distress HEENT: PERRL/EOMI Neck: Full Range of Motion Respiratory: Chest Non Tender, Normal Breath Sounds Cardiovascular: Regular Rate, Rhythm Gastrointestinal: normal bowel sounds, non tender, soft Extremity: Normal Capillary Refill Neurologic/Psychiatric: Alert, Oriented x3 Skin: Normal Color Lymphatic: No Adenopathy Results Lab Laboratory Tests 10/04/22 05:34: Hemoglobin 7.7L, Hematocrit 24L, Sodium Level 137, Potassium Level 3.7, Chloride Level 111H, Carbon Dioxide Level 19L, Anion Gap 7, Blood Urea Nitrogen 43H, Creatinine 2.10H, Estimat Glomerular Filtration Rate 22, BUN/Creatinine Ratio 20, Glucose Level 89, Calcium Level 8.5 10/04/22 13:03: Vancomycin Level Trough 13.2 Assessment/Plan Assessment/Plan Assess & Plan/Chief Complaint anemia with heme+ stools. PUD diet. PPI acid [employer] art [employer] for home. ANAYA BEJARANO MD Oct 04, 2022 14:06
[2022-10-04] MEDS: VANCOMYCIN 750 MG/NS 250 ML IVPB IV SCH ×2 (14:14)
[2022-10-04 16:44] VITALS: BP 110/63
--- NOTE | 2022-10-04 18:27 | Progress Note - Cardiology ---
Cardiology SOAP Progress Note Subjective: She is not able to provide any history (non-communicative) Objective: I&O/Vital Signs 10/04/22 10/04/22 10/04/22 10/04/22 08:00 08:16 12:14 13:00 Temp 36.7 36.4 Pulse 95 102 90 Resp 16 18 B/P (MAP) 119/57 (77) 108/61 (77) Pulse Ox 95 98 O2 Delivery OxyMask OxyMask OxyMask O2 Flow Rate 2.00 2.50 2.00 10/04/22 16:44 Temp 36.2 Pulse 91 Resp 20 B/P (MAP) 110/63 (79) Pulse Ox 96 O2 Delivery OxyMask O2 Flow Rate 2.00 10/04/22 00:00 Intake Total 1170 ml Balance 1170 ml Weight (Pounds): 154 Weight (Ounces): 5.0 Weight (Calculated Kilograms): 69.060390 Constitutional: well-developed, well-nourished, other (expressive aphasia; smiles when name is called) Respiratory: No accessory muscle use, No respiratory distress; chest expansion is symmetric, chest is bilaterally symmetric, lungs clear to auscultation Cardiovascular: irregularly irregular; No JVD; S1 and S2 Gastrointestional: soft; No guarding; audible bowel sounds Extremities: no lower extremity edema bilateral Neurologic/Psychiatric: other (moves extremities) Skin: No rash on exposed areas, No ulcerations on exposed areas Results/Procedures: Labs Laboratory Tests 10/04/22 05:34: Hemoglobin 7.7L, Hematocrit 24L, Sodium Level 137, Potassium Level 3.7, Chloride Level 111H, Carbon Dioxide Level 19L, Anion Gap 7, Blood Urea Nitrogen 43H, Creatinine 2.10H, Estimat Glomerular Filtration Rate 22, BUN/Creatinine Ratio 20, Glucose Level 89, Calcium Level 8.5 10/04/22 13:03: Vancomycin Level Trough 13.2 A/P: Assessment: Anemia - management per medical services CKD 3 Chronic atrial fibrillation, rate is controlled, maintained on Cardizem, digoxin, Xarelto - Xarelto currently being withheld d/t anemia COPD Congestive heart failure, chronic compensated left ventricular diastolic dysfunction with ejection fraction 50% Unable to tolerate JACINTO inhibitor and/or ARB due to hypotension in the past 2D Echo done on August 21, [address] Shah with ejection fraction 65%, severe pulmonary hypertension with PA 70 to 75 mmHg, dilated right heart chambers with wide open tricuspid regurgitation Pulmonary HTN, Echo of 08-21-[address] 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 Plan: Anemia - management per medical services Chronic a-fib with h/o CVA with residual expressive aphasia - xarelto currently being withheld d/t anemia - advise source of bleeding be determined and treated so that OAC may be resumed - continue NANCY Jiang and Hermelinda Monitor lab closely MARIA ANTONIA GAUTHIER MD FACP [facility] CCDS Oct 04, 2022 18:27
[2022-10-04 20:22] VITALS: BP 119/62
[2022-10-04] MEDS: COLESTIPOL 1 GM (COLESTID) TAB PO SCH (21:21)
[2022-10-05] VITALS (7 sets, daily range): BP systolic 107–142; BP diastolic 54–69
[2022-10-05 05:55] LABS: HEMOGLOBIN 7.8 g/dL (11.5-16.0)
[2022-10-05] MEDS: LEVOTHYROXINE 100 MCG (LEVOTHROID) TAB PO SCH (05:55)
[2022-10-05 06:14] LABS: CALCIUM 8.7 MG/DL (8.5-10.1); CREATININE SERUM 2.25 MG/DL (0.60-1.30); POTASSIUM 3.9 MMOL/L (3.6-5.0)
[2022-10-05] MEDS: dilTIAZem120 MG (CARDIZEM CD) CAP PO SCH (08:58)
[2022-10-05] MEDS: DIGOXIN 0.125 MG (LANOXIN) TAB PO SCH (08:58)
[2022-10-05] MEDS: PANTOPRAZOLE 40 MG (PROTONIX) VIAL IV SCH ×2 (08:58→20:05)
[2022-10-05] MEDS: COLLAGENASE OINTMENT 30 GM TUBE TP SCH ×2 (08:59→20:06)
[2022-10-05] MEDS: MENTHOL/ZINC OXIDE OINTMENT 113 GM TUBE TP SCH ×2 (08:59→20:05)
--- NOTE | 2022-10-05 11:19 | Progress Note - Hospitalist ---
Subjective HPI/CC On Admission Date Seen by Provider: Oct 05, 2022 Emilee Cui is an 89 year old female with PMH stroke with residual aphasia, dementia, CKD 3b, AFib, HFpEF, who was admitted from [facility] with anemia. She is unable to provide any history due to her aphasia. She was recently discharged there after a hospitalization with sepsis due to UTI. She reportedly had labs done and was found to be anemic. She is awake and alert. She shakes her head yes and no. She denies pain. She denies any complaints. Subjective/Events-last exam Pt remains aphasic. No ROS possible. No family at bedside. Objective Exam Vital Signs Vital Signs Date Time Temp Pulse Resp B/P (MAP) Pulse Ox O2 Delivery O2 Flow Rate FiO2 10/05/22 08:33 OxyMask 2.00 10/05/22 07:34 36.7 95 20 122/62 (82) 95 Capillary Refill : Less Than 3 Seconds General Appearance: No Apparent Distress, Chronically ill Respiratory: Lungs Clear Cardiovascular: Regular Rate, Rhythm, No Murmur Gastrointestinal: Normal Bowel Sounds, Soft Neurologic/Psychiatric: Alert, Aphasia Results/Procedures Lab Laboratory Tests 10/05/22 05:25 Patient resulted labs reviewed. Assessment/Plan Assessment and Plan Assess & Plan/Chief Complaint Acute on chronic anemia Hgb up to 7.8- stable s/p 2 units PRBC No evidence of acute blood loss Occult blood positive Surgery consulted, appreciate recs Iron studies with normal iron and low TIBC Hold Xarelto pressure ulcers MRSA + Wound care consulted On Vanc [place] on CKD 3b Stable 2.25 this AM, up from her previous baseline but stable AFib Holding Xarelto Continue other meds HTN HLD Hypothyroidism HFpEF History of stroke with residual aphasia Continue home meds as able MANDY DIA MD Oct 05, 2022 11:19
--- NOTE | 2022-10-05 13:24 | Progress Note - Cardiology ---
Cardiology SOAP Progress Note Subjective: Unable to communicate Objective: I&O/Vital Signs 10/05/22 10/05/22 10/05/22 10/05/22 04:30 07:00 07:34 08:11 Temp 36.8 36.7 Pulse 88 94 95 Resp 20 20 B/P (MAP) 125/62 (83) 122/62 (82) Pulse Ox 92 95 O2 Delivery OxyMask OxyMask OxyMask O2 Flow Rate 2.00 2.00 2.00 2.00 10/05/22 10/05/22 10/05/22 08:33 11:19 12:45 Temp 36.6 Pulse 95 91 Resp 20 B/P (MAP) 115/56 (75) Pulse Ox 93 O2 Delivery OxyMask OxyMask O2 Flow Rate 2.00 2.00 10/05/22 00:00 Intake Total 1320 ml Balance 1320 ml Weight (Pounds): 154 Weight (Ounces): 5.0 Weight (Calculated Kilograms): 69.174718 Constitutional: well-developed, well-nourished, other (expressive aphasia; smiles when name is called) Respiratory: No accessory muscle use, No respiratory distress; chest expansion is symmetric, chest is bilaterally symmetric, lungs clear to auscultation Cardiovascular: irregularly irregular; No JVD; S1 and S2 Gastrointestional: soft; No guarding; audible bowel sounds Extremities: no lower extremity edema bilateral Neurologic/Psychiatric: other (moves extremities) Skin: No rash on exposed areas, No ulcerations on exposed areas Results/Procedures: Labs Laboratory Tests 10/05/22 05:25: Hemoglobin 7.8L, Hematocrit 25L, Sodium Level 137, Potassium Level 3.9, Chloride Level 109H, Carbon Dioxide Level 21, Anion Gap 7, Blood Urea Nitrogen 46H, Creatinine 2.25H, Estimat Glomerular Filtration Rate 20, BUN/Creatinine Ratio 20, Glucose Level 101, Calcium Level 8.7 Laboratory Tests 10/04/22 05:34 10/05/22 05:25 A/P: Assessment: Anemia, severe - management per Medical services CKD 3 Chronic atrial fibrillation, rate is controlled, maintained on Cardizem, digoxin, Xarelto - Xarelto currently being withheld d/t anemia COPD Congestive heart failure, chronic compensated left ventricular diastolic dysfunction with ejection fraction 50% Unable to tolerate JACINTO inhibitor and/or ARB due to hypotension in the past 2D Echo done on August 21, [address] Shah with ejection fraction 65%, severe pulmonary hypertension with PA 70 to 75 mmHg, dilated right heart chambers with wide open tricuspid regurgitation Pulmonary HTN, Echo of 08-21-[address] 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 Plan: Anemia - management per medical services Chronic a-fib with h/o CVA with residual expressive aphasia - Xarelto currently being withheld d/t anemia - we advise that source of bleeding be determined and treated so that OAC may be resumed - continue Cardizem, BB and Dig as tolerated Monitor lab closely MARIA ANTONIA GAUTHIER MD FACP [facility] CCDS Oct 05, 2022 13:24
[2022-10-05] MEDS: VANCOMYCIN 750 MG/NS 250 ML IVPB IV SCH ×2 (14:21)
--- NOTE | 2022-10-05 15:09 | Physical Therapy Progress Note ---
Therapy Progress Note Attempted to see patient for PT evaluation. Nurse reports patient is aphasic and will only nod "yes" and "no". Explained to patient this therapist was there to perform the evaluation and patient shook her head no. Explained the benefits of activity for healing, and patient continued to shake her head no. Nurse notified, will attempt again tomorrow. AYDEN CAT PT Oct 05, 2022 15:09
[2022-10-05] MEDS ORDERED: ACETAMINOPHEN 500 MG TABLET PO PRN (16:30)
[2022-10-05] MEDS: COLESTIPOL 1 GM (COLESTID) TAB PO SCH (20:05)
[2022-10-06 03:23] VITALS: BP 113/60
[2022-10-06 05:10] LABS: HEMOGLOBIN 7.6 g/dL (11.5-16.0)
[2022-10-06 05:25] LABS: POTASSIUM 4.2 MMOL/L (3.6-5.0)
[2022-10-06 05:26] LABS: CALCIUM 8.8 MG/DL (8.5-10.1)
[2022-10-06 05:30] LABS: CREATININE SERUM 2.38 MG/DL (0.60-1.30)
[2022-10-06] MEDS: LEVOTHYROXINE 100 MCG (LEVOTHROID) TAB PO SCH (06:48)
[2022-10-06 08:00] VITALS: BP 129/60
[2022-10-06] MEDS: DIGOXIN 0.125 MG (LANOXIN) TAB PO SCH (09:50)
[2022-10-06] MEDS: dilTIAZem120 MG (CARDIZEM CD) CAP PO SCH (09:51)
[2022-10-06] MEDS: PANTOPRAZOLE 40 MG (PROTONIX) VIAL IV SCH ×2 (09:52→21:08)
--- NOTE | 2022-10-06 10:21 | Physical Therapy Evaluation ---
PT Evaluation-General Medical Diagnosis Admission Date Oct 04, 2022 at 09:31 Medical Diagnosis: severe anemia/A-fib with RVR Onset Date: Oct 04, 2022 Therapy Diagnosis Therapy Diagnosis: debility Height/Weight Height (Feet): 5 Height (Inches): 1.00 Weight (Pounds): 154 Weight (Ounces): 5.0 Precautions Precautions/Isolations: Contact Isolation Referral Physician: Naty Reason for Referral: Evaluation/Treatment Medical History Pertinent Medical History: COPD, CVA, Dementia, Diverticulitis Current History Admit from [place] Reviewed History: Yes Social History Home: Shelter Prior Prior Level of Function SCALE: Activities may be completed with or without assistive devices. 5-Qmwgehfhts-jponean completes the activity by him/herself with no assistance from a helper. 5-Set-up or Clean-up Assistance-helper sets up or cleans up; patient completes activity. Olga assists only prior to or following the activity. 4-Supervision or Touching Assistance-helper provides verbal cues and/or touching/steadying and/or contact guard assistance as patient completes ac tivity. Assistance may be provided throughout the activity or intermittently. 3-Partial/Moderate Assistance-helper does LESS THAN HALF the effort. Olga lifts, holds or supports trunk or limbs, but provides less than half the effort. 2-Substantial/Maximal Assistance-helper does MORE THAN HALF the effort. Olga lifts or holds trunk or limbs and provides more than half the effort. 0-Qzyufzmqt-actxls does ALL the effort. Patient does none of the effort to complete the activity. Or, the assistance of 2 or more helpers is required for the patient to complete the activity. If activity was not attempted, code reason: 7-Patient Refused. 9-Not Applicable-not attempted and the patient did not perform the activity before the current illness, exacerbation or injury. 10-Not Attempted due to Environmental Limitations-(lack of equipment, weather restraints, etc.). 88-Not Attempted due to Medical Conditions or Safety Concerns. Bed Mobility: 2 Transfers (B,C,W/C): 2 PT Evaluation-Current Subjective Patient able to nod her head "yes" and shake 'no" to answer questions appropriately. Objective Patient Orientation: Non-Verbal/Aphasic ROM/Strength ROM Lower Extremities bilateral LE WFL Strength Lower Extremities 3-/5 grossly bilateral LE all planes Integumentary/Posture Bowel Incontinence: Yes Bladder Incontinence: Yes Neuromuscular (Tone, Coordination, Reflexes) diminished coordination Sensory Vision: Functional Hearing: Impaired Transfers Lying to Sitting/Side of Bed(Q: 2 Sit to Stand (QC): 2 Chair/Fao-wn-Qukoq Xfer(QC): 2 Toilet Transfer (QC): 2 max assist with all mobility and transfers safely Gait Walk 10 feet (QC): 9 Walk 50 ft with 2 Turns(QC): 9 Balance Sitting Static: Poor Sitting Dynamic: Poor Standing Static: Poor Standing Dynamic: Poor Assessment/Needs Patient will be seen short term by skilled PT to address functional strength and mobility. Rehab Potential: Guarded PT Shoulder Sawyer Goals Alf Goals PT Alf Goals Time Frame: Oct 15, 2022 Roll Left & Right (QC): 3 Sit to Lying (QC): 3 Lying-Sitting on Side/Bed(QC): 3 Sit to Stand (QC): 3 Chair/Jwz-yy-Wkfny Xfer(QC): 3 Toilet Transfer (QC): 3 Walk 10 feet (QC): 2 PT Plan Problem List Problem List: Activity Tolerance, Functional Strength, Safety, Balance, Gait, Transfer, Bed Mobility Treatment/Plan Treatment Plan: Continue Plan of Care Treatment Plan: Bed Mobility, Functional Activity Rolly, Functional Strength, Gait, Safety, Therapeutic Exercise, Transfers Treatment Duration: Oct 15, 2022 Frequency: 5 times per week Estimated Hrs Per Day: .25 hour per day Time Time In: 750 Time Out: 810 DATE: Oct 06, 2022 Total Billed Treatment Time: 20 Total Billed Treatment 1 visit EVMod 20 min JADE JONES PT Oct 06, 2022 10:21
[2022-10-06 11:40] VITALS: BP 111/57
--- NOTE | 2022-10-06 14:15 | Progress Note - Hospitalist ---
Subjective HPI/CC On Admission Date Seen by Provider: Oct 06, 2022 Emilee Cui is an 89 year old female with PMH stroke with residual aphasia, dementia, CKD 3b, AFib, HFpEF, who was admitted from [facility] with anemia. She is unable to provide any history due to her aphasia. She was recently discharged there after a hospitalization with sepsis due to UTI. She reportedly had labs done and was found to be anemic. She is awake and alert. She shakes her head yes and no. She denies pain. She denies any complaints. Subjective/Events-last exam Pt up in chair. ROS limited by aphasia. No family at bedside. Called and spoke w ith daughter regarding plan. Objective Exam Vital Signs Vital Signs Date Time Temp Pulse Resp B/P (MAP) Pulse Ox O2 Delivery O2 Flow Rate FiO2 10/06/22 13:08 80 10/06/22 11:40 36.4 18 111/57 (75) 98 Nasal Cannula 2.00 Capillary Refill : Less Than 3 Seconds General Appearance: No Apparent Distress, Chronically ill Cardiovascular: Regular Rate, Rhythm Gastrointestinal: Normal Bowel Sounds, Soft Neurologic/Psychiatric: Alert, Aphasia Results/Procedures Lab Laboratory Tests 10/06/22 05:00 Patient resulted labs reviewed. Assessment/Plan Assessment and Plan Assess & Plan/Chief Complaint Acute on chronic anemia Hgb up to 7.6- essentially stable but down some s/p 2 units PRBC No evidence of acute blood loss Occult blood positive Surgery consulted, appreciate recs- they are planning conservative measures Iron studies with normal iron and low TIBC Resume Xarelto pressure ulcers MRSA + Wound care consulted On Vanc- pharmacy to assist with dosing given CKD [place] on CKD 3b Up very slightly but essentially stable, trend AFib Continue Xarelto Continue other meds Cardiology consulted, apprecite recs HTN HLD Hypothyroidism HFpEF History of stroke with residual aphasia Continue home meds as able MANDY DIA MD Oct 06, 2022 14:15
[2022-10-06] MEDS: VANCOMYCIN 750 MG/NS 250 ML IVPB IV SCH ×2 (14:27)
[2022-10-06] MEDS: MENTHOL/ZINC OXIDE OINTMENT 113 GM TUBE TP SCH ×2 (14:36→20:30)
[2022-10-06] MEDS: COLLAGENASE OINTMENT 30 GM TUBE TP SCH ×2 (14:37→21:08)
[2022-10-06 16:10] VITALS: BP 124/59
--- NOTE | 2022-10-06 17:14 | Progress Note - Cardiology ---
Cardiology SOAP Progress Note Subjective: Unable to communicate Objective: I&O/Vital Signs 10/06/22 10/06/22 10/06/22 10/06/22 06:08 07:45 08:00 08:55 Temp 36.4 Pulse 75 86 Resp 18 B/P (MAP) 129/60 (83) Pulse Ox 94 O2 Delivery OxyMask Nasal Cannula OxyMask O2 Flow Rate 2.00 2.00 2.00 10/06/22 10/06/22 10/06/22 11:40 13:08 16:10 Temp 36.4 36.9 Pulse 80 80 92 Resp 18 18 B/P (MAP) 111/57 (75) 124/59 (80) Pulse Ox 98 91 O2 Delivery Nasal Cannula Nasal Cannula O2 Flow Rate 2.00 2.00 10/06/22 00:00 Intake Total 1350 ml Balance 1350 ml Weight (Pounds): 154 Weight (Ounces): 5.0 Weight (Calculated Kilograms): 69.437362 Constitutional: well-developed, well-nourished, other (unable to communicate, smiles) Respiratory: No accessory muscle use, No respiratory distress; chest expansion is symmetric, chest is bilaterally symmetric, lungs clear to auscultation Cardiovascular: irregularly irregular; No JVD; S1 and S2 Gastrointestional: soft; No guarding; audible bowel sounds Extremities: no lower extremity edema bilateral Neurologic/Psychiatric: other (moves extremities) Skin: No rash on exposed areas, No ulcerations on exposed areas Results/Procedures: Labs Laboratory Tests 10/06/22 05:00: Hemoglobin 7.6L, Hematocrit 24L, Sodium Level 135, Potassium Level 4.2, Chloride Level 108H, Carbon Dioxide Level 21, Anion Gap 6, Blood Urea Nitrogen 49H, Creatinine 2.38H, Estimat Glomerular Filtration Rate 19, BUN/Creatinine Ratio 21, Glucose Level 98, Calcium Level 8.8 Laboratory Tests 10/05/22 05:25 10/06/22 05:00 A/P: Assessment: Anemia, severe - management per Medical services CKD 3 Chronic atrial fibrillation, rate is controlled, maintained on Cardizem, digoxin, Xarelto - Xarelto currently being withheld d/t anemia COPD Congestive heart failure, chronic compensated left ventricular diastolic dysfunction with ejection fraction 50% Unable to tolerate JACINTO inhibitor and/or ARB due to hypotension in the past 2D Echo done on August 21, [address] Shah with ejection fraction 65%, severe pulmonary hypertension with PA 70 to 75 mmHg, dilated right heart chambers with wide open tricuspid regurgitation Pulmonary HTN, Echo of 08-21-[address] 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 Plan: Anemia - management per medical services Chronic a-fib with h/o CVA with residual expressive aphasia - Xarelto currently being withheld d/t anemia - we advise that source of bleeding be determined and treated so that OAC may be resumed - continue Cardizem, BB and Dig as tolerated Monitor lab closely MARIA ANTONIA GAUTHIER MD FACP [facility] Oct 06, 2022 17:13
[2022-10-06] MEDS ORDERED: RIVAROXABAN 15 MG TABLET (XARELTO) PO SCH (18:00)
[2022-10-06 19:51] VITALS: BP 125/59
[2022-10-06] MEDS: COLESTIPOL 1 GM (COLESTID) TAB PO SCH (20:30)
[2022-10-07 00:46] VITALS: BP 126/69
[2022-10-07 04:53] VITALS: BP 137/75
[2022-10-07 05:38] LABS: HEMOGLOBIN 8.4 g/dL (11.5-16.0)
[2022-10-07 05:47] LABS: POTASSIUM 4.2 MMOL/L (3.6-5.0)
[2022-10-07 05:48] LABS: CALCIUM 8.9 MG/DL (8.5-10.1)
[2022-10-07 05:53] LABS: CREATININE SERUM 2.27 MG/DL (0.60-1.30)
[2022-10-07] MEDS: LEVOTHYROXINE 100 MCG (LEVOTHROID) TAB PO SCH (06:17)
[2022-10-07 08:28] VITALS: BP 144/60
[2022-10-07] MEDS: DIGOXIN 0.125 MG (LANOXIN) TAB PO SCH (08:52)
[2022-10-07] MEDS: COLLAGENASE OINTMENT 30 GM TUBE TP SCH (08:53)
[2022-10-07] MEDS: dilTIAZem120 MG (CARDIZEM CD) CAP PO SCH (08:53)
[2022-10-07] MEDS: PANTOPRAZOLE 40 MG (PROTONIX) VIAL IV SCH (08:53)
[2022-10-07] MEDS: MENTHOL/ZINC OXIDE OINTMENT 113 GM TUBE TP SCH (08:54)
--- NOTE | 2022-10-07 09:58 | Physical Therapy Progress Note ---
Therapy Progress Note Patient shook her head no in refusing PT on this date. RN notified. JADE JONES PT Oct 07, 2022 09:58
--- NOTE | 2022-10-07 12:05 | Discharge Inst-Skilled Nursing ---
Discharge Inst-Skilled NF Chief Complaint Emilee Cui is an 89 year old female with PMH stroke with residual aphasia, dementia, CKD 3b, AFib, HFpEF, who was admitted from [facility] with anemia. She is unable to provide any history due to her aphasia. She was recently discharged there after a hospitalization with sepsis due to UTI. She reportedly had labs done and was found to be anemic. She is awake and alert. She shakes her head yes and no. She denies pain. She denies any complaints. Consult/Follow Up/Orders Skilled NF Admit to: [facility] Certification (SNF) I certify that SNF services are required to be given on an inpatient basis because of the above named patient's need for assisted care on a continuing basis for the conditions(s) for which he/she was receiving inpatient hospital services prior to his/her transfer to the SNF. Shelter Facility Order: Nursing Services, Can Washer-Evaluate & Treat, Physical Therapy-Evaluate & Treat, Speech Language-Evaluate & Treat Oxygen Delivery Method: Nasal Cannula (2lpm) Discharge Diet: Low Sodium Diet Resuscitation Status: Do Not Resuscitate New & Resume Previous Orders Mandy Alfonso Oct 07, 2022 12:02 MANDY ALFONSO MD Oct 07, 2022 12:05
[2022-10-07] MEDS ORDERED: LINE600T12 PO (12:06)
[2022-10-07 12:10] VITALS: BP 123/71
--- NOTE | 2022-10-07 12:43 | Discharge Inst-Simple/Standard ---
Discharge Inst-Standard Discharge Medications New, Converted or Re-Newed RX: Transmitted to Pharmacy Patient Instructions/Follow Up Plan of Care/Instructions/FU: Please continue to take your medications as written. Please follow up with your primary care doctor to follow up this hospital stay. Activity as Tolerated: Yes Discharge Diet: Low Sodium Diet Return to The Hospital For: Chest pain, shortness of breath, dark or bloody stools, weakness, fever, confusion, if you feel you are getting worse. MANDY DIA MD Oct 07, 2022 12:37
[2022-10-07] MEDS ORDERED: PANT40TA52 PO (13:10)
--- NOTE | 2022-10-07 14:25 | Discharge Summary ---
Diagnosis/Chief Complaint Date of Admission Oct 04, 2022 at 09:31 Date of Discharge Discharge Date: Oct 07, 2022 Admission Diagnosis Anemia Primary Care Eileen Kinney MD Discharge Diagnosis (1) Anemia Status: Acute (2) Acute kidney injury superimposed on chronic kidney disease Status: Acute (3) History of stroke with residual effects Status: Chronic (4) Dementia Status: Chronic (5) HTN (hypertension) Status: Chronic (6) Afib Status: Chronic (7) Hypothyroidism Status: Chronic Discharge Summary Discharge Physical Exam Allergies: Coded Allergies: Penicillins (Verified Allergy, Unknown, 06/02/22) codeine (Verified Adverse Reaction, Unknown, NAUSEA, 06/02/22) Vitals & I&Os Vital Signs Date Time Temp Pulse Resp B/P (MAP) Pulse Ox O2 Delivery O2 Flow Rate FiO2 10/07/22 14:50 35.8 85 20 123/71 99 Nasal Cannula 2.00 General Appearance: No Apparent Distress, Chronically ill Cardiovascular: Regular Rate, Rhythm, No Murmur Gastrointestinal: Normal Bowel Sounds, Soft Neurologic/Psychiatric: Alert, Aphasia Hospital Course Patient was admitted to the hospital secondary to anemia. Fecal occult studies were obtained and were positive. Surgery was consulted. Cardiology was consulted as well as she is on anticoagulation. Her anticoagulation was held and surgery recommended conservative management. She received 2 units of packed red blood cells and her hemoglobin improved. Her Xarelto was restarted and she was monitored on this with a stable hemoglobin. I called and updated her primary care physician regarding this hospitalization. I also spoke with her daughter hPam regarding plans and risk of continued anticoagulation for bleeding. She expressed understanding. She is to follow-up with Dr. Kinney, Dr Pederson,Dr Gray to follow-up this hospital stay. Labs (last 24 hrs) Patient resulted labs reviewed. Discussion & Recommendations Discharge Planning: >30 minutes discharge planning Discharge Home Medications: Active Scripts Active Pantoprazole Sodium 40 Mg Tablet. 40 Mg PO BID Zyvox (Linezolid) 600 Mg Tablet 600 Mg PO BID Reported Vitamin D3 (Cholecalciferol (Vitamin D3)) 1,250 Mcg (28062 Unit) Tablet 1,250 Mcg PO WEEKLY Metoprolol Succinate 25 Mg Tab.er.24h 12.5 Mg PO DAILY TAKES 1/2 OF (25MG) TAB HOLD IF SBP LESS THAN 120 OR PULSE LESS THAN 60 Colestipol HCl 1 Gram Tablet 1 Gm PO HS B-12 (Cyanocobalamin (Vitamin B-12)) 500 Mcg Tablet 500 Mcg PO DAILY Digoxin 125 Mcg (0.125 Mg) Tablet 125 Mcg PO DAILY Atorvastatin Calcium 10 Mg Tablet 10 Mg PO HS Diltiazem 24Hr Cd (Diltiazem HCl) 120 Mg Cap.er.24h 120 Mg PO DAILY HOLD IF SBP LESS THAN 110 Furosemide 20 Mg Tablet 20 Mg PO DAILY PRN SBP GREATER THAN 115 X3 DAYS Floranex Tablet (L. Acidophilus/Bulgaricus) 1 Million Cell Tablet 1 Each PO BID Furosemide 20 Mg Tablet 20 Mg PO DAILY Levothyroxine (Levothyroxine Sodium) 100 Mcg Capsule 100 Mcg PO DAILY Xarelto (Rivaroxaban) 15 Mg Tablet 15 Mg PO DAILY Nystatin 100,000 Unit/Gram Cream..g. 1 Applic TP BID Nystatin 100,000 Unit/Gram Powder 1 Applic TP TID Calmoseptine Ointment (Menthol/Lanolin/Calamine/Znox) 0.44 %-20.6 % Oint 1 Applic TP BID Rajeev Packet (Arginine/Glutamine/Calcium Hmb) 7 Gram-7 Gram-1.5 Gram Powd.pack 1 Each PO BID Vitamin C (Ascorbate Calcium) 500 Mg Tablet 500 Mg PO BID Instructions to patient/family Please see electronic discharge instructions given to patient. Copy Copies To 1: EILEEN KINNEY MD Problem Qualifiers (1) Afib: Atrial fibrillation type: paroxysmal Qualified Codes: I48.0 - Paroxysmal atrial fibrillation MANDY DIA MD Oct 07, 2022 14:25
--- NOTE | 2022-10-07 14:29 | Progress Note - Cardiology ---
Cardiology SOAP Progress Note Subjective: Unable to communicate Objective: I&O/Vital Signs 10/07/22 10/07/22 10/07/22 10/07/22 04:53 07:00 08:00 08:28 Temp 36.3 Pulse 100 109 106 Resp 20 20 B/P (MAP) 137/75 (95) 144/60 (88) Pulse Ox 97 89 O2 Delivery Nasal Cannula Nasal Cannula Nasal Cannula O2 Flow Rate 2.00 2.00 2.00 10/07/22 10/07/22 10/07/22 12:05 12:10 12:26 Temp 35.8 Pulse 85 85 Resp 20 B/P (MAP) 123/71 (88) Pulse Ox 99 O2 Delivery Nasal Cannula Nasal Cannula O2 Flow Rate 2.00 10/07/22 00:00 Intake Total 850 ml Balance 850 ml Weight (Pounds): 154 Weight (Ounces): 5.0 Weight (Calculated Kilograms): 69.933609 Constitutional: well-developed, well-nourished, other (unable to communicate, smiles) Respiratory: No accessory muscle use, No respiratory distress; chest expansion is symmetric, chest is bilaterally symmetric, lungs clear to auscultation Cardiovascular: irregularly irregular; No JVD; S1 and S2 Gastrointestional: soft; No guarding; audible bowel sounds Extremities: no lower extremity edema bilateral Neurologic/Psychiatric: other (moves extremities) Skin: No rash on exposed areas, No ulcerations on exposed areas Results/Procedures: Labs Laboratory Tests 10/07/22 05:15: Hemoglobin 8.4L, Hematocrit 26L, Sodium Level 136, Potassium Level 4.2, Chloride Level 108H, Carbon Dioxide Level 20L, Anion Gap 8, Blood Urea Nitrogen 47H, Creatinine 2.27H, Estimat Glomerular Filtration Rate 20, BUN/Creatinine Ratio 21, Glucose Level 84, Calcium Level 8.9 Laboratory Tests 10/06/22 05:00 10/07/22 05:15 A/P: Assessment: Anemia, severe - management per Medical services CKD 3 Chronic atrial fibrillation, rate is controlled, maintained on Cardizem, digoxin, Xarelto - Xarelto currently being withheld d/t anemia COPD Congestive heart failure, chronic compensated left ventricular diastolic dysfun ction with ejection fraction 50% Unable to tolerate JACINTO inhibitor and/or ARB due to hypotension in the past 2D Echo done on August 21, [address] Shah with ejection fraction 65%, severe pulmonary hypertension with PA 70 to 75 mmHg, dilated right heart chambers with wide open tricuspid regurgitation Pulmonary HTN, Echo of 08-21-[address] 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 Plan: Anemia - management per Medical services Chronic a-fib with h/o CVA with residual expressive aphasia - Xarelto was withheld d/t anemia - resumption per Medical services - continue Cardizem, BB and Dig as tolerated Monitor lab closely MARIA ANTONIA GAUTHIER MD FACP FAC [facility]S Oct 07, 2022 14:29
[2022-10-07 14:50] VITALS: BP 123/71
[2022-10-07] MEDS ORDERED: PANTOPRAZOLE 40 MG (PROTONIX) TAB PO SCH (21:00)
--- NOTE | 2022-10-12 09:23 | Physician Query Clarification ---
PQ-Further Specificity Admission/Discharge Admission Date: Oct 04, 2022 at 09:31 Discharge Date: Oct 07, 2022 at 14:55 Dr. Alfonso, The medical record reflects the following clinical scenario: History/Risk Factors: anemia, Mod PEM, [place], CKD 4, chronic atrial fibrillation, on Xarelto Clinical Findings: positive occult stool, Hgb/Hct 6.5/22 Treatment: transfused 2U PRBC'S, Held Xarelto Question: Can you further specify the type of anemia per the clinical indicators above? Please document a response in the Progress Notes or Discharge Summary. 1. anemia d/t extrinsic circulating anticoagulants 2. anemia d/t chronic blood loss 3. Other, with explanation of the clinical findings. 4. Clinically undetermined, no explanation for the clinical findings. PHYSICIAN RESPONSE Can you specify per above: 2 In responding to this query, please exercise your independent professional judgment. The purpose of this communication is to more accurately reflect the complexity of your patients condition. The fact that a question is asked does not imply that any particular answer is desired or expected. Thank you for your timely response to this clarification. Requestors name: Taj THIS PHYSICIAN QUERY FORM IS A PERMANENT PART OF THE MEDICAL RECORD TAJ HIDALGO Oct 12, 2022 09:23 MANDY ALFONSO MD Oct 20, 2022 13:05
== END 2022-10-07 14:55 | DRG 812 ==
LOC: EDUNIT# 21:27 → ER 21:28 → 4TH 22:49 → OBSVTOIN 10-04 09:31 → 4TH 10-07 14:26
PROVIDERS: ADMIT Internal Medicine; ATTEND Internal Medicine
DX: D50.0 Iron deficiency anemia secondary to blood loss (chronic) (principal); N17.9 Acute kidney failure, unspecified; E44.0 Moderate protein-calorie malnutrition; I50.32 Chronic diastolic (congestive) heart failure; I13.0 Hypertensive heart and chronic kidney disease with heart failure and stage 1 through stage 4 chronic kidney disease, or unspecified chronic kidney disease; I48.20 Chronic atrial fibrillation, unspecified; N18.4 Chronic kidney disease, stage 4 (severe); L03.012 Cellulitis of left finger; Z66 Do not resuscitate; F01.50 Vascular dementia, unspecified severity, without behavioral disturbance, psychotic disturbance, mood disturbance, and anxiety; L89.220 Pressure ulcer of left hip, unstageable; L89.619 Pressure ulcer of right heel, unspecified stage; I69.320 Aphasia following cerebral infarction; K21.9 Gastro-esophageal reflux disease without esophagitis; J44.9 Chronic obstructive pulmonary disease, unspecified; M06.9 Rheumatoid arthritis, unspecified; M81.0 Age-related osteoporosis without current pathological fracture; E78.5 Hyperlipidemia, unspecified; E03.9 Hypothyroidism, unspecified; I25.10 Atherosclerotic heart disease of native coronary artery without angina pectoris; I27.20 Pulmonary hypertension, unspecified; I65.23 Occlusion and stenosis of bilateral carotid arteries; A49.02 Methicillin resistant Staphylococcus aureus infection, unspecified site; D63.1 Anemia in chronic kidney disease; I07.1 Rheumatic tricuspid insufficiency; H54.61 Unqualified visual loss, right eye, normal vision left eye; H91.90 Unspecified hearing loss, unspecified ear; R60.0 Localized edema; Z79.01 Long term (current) use of anticoagulants; Z85.828 Personal history of other malignant neoplasm of skin; Z87.891 Personal history of nicotine dependence; Z79.899 Other long term (current) drug therapy; Z88.5 Allergy status to narcotic agent; Z88.0 Allergy status to penicillin; Z68.23 Body mass index [BMI] 23.0-23.9, adult
CPT/HCPCS: 36415; 36430; 80048; 80053; 80162; 80202; 82274; 82728; 83540; 83550; 83735; 84439; 84443; 85014; 85018; 85025; 85610; 85730; 86850; 86900; 86901; 86902; 86920; G0378

== ENCOUNTER → 2022-10-01 | Outpatient (CLI) | payer MEDICARE, MEDICAID ==
[~2022-10-01] MED LIST changes: +ARGI1POW4 PO; +ASCO-262 PO; +CHOL12509 PO; +CYAN500T44 PO; +DILT120C88 PO; +LEVO100C4 PO; +RIVA15TA PO
[2022-10-01 18:51] LABS: BASOPHILS % (AUTO) 0 % (0-10); EOSINOPHILS # (AUTO) 0.2 10^3/uL (0.0-0.3); EOSINOPHILS % (AUTO) 2 % (0-10); HEMATOCRIT 21 % (35-52); LYMPHOCYTES % (AUTO) 22 % (12-44); MEAN CORPUSCULAR HEMOGLOBIN 30 pg (25-34); MEAN CORPUSCULAR HGB CONC 31 g/dL (32-36); MEAN CORPUSCULAR VOLUME 97 fL (80-99); MEAN PLATELET VOLUME 9.5 fL (9.0-12.2); MONOCYTES # (AUTO) 0.9 10^3/uL (0.0-1.0); MONOCYTES % (AUTO) 10 % (0-12); NEUTROPHILS # (AUTO) 5.8 10^3/uL (1.8-7.8); NEUTROPHILS % (AUTO) 65 % (42-75); PLATELET COUNT 299 10^3/uL (130-400); WHITE BLOOD COUNT 8.9 10^3/uL (4.3-11.0)
[2022-10-01 18:59] LABS: HEMOGLOBIN 6.5 g/dL (11.5-16.0)
[2022-10-01 19:01] LABS: ALBUMIN 2.9 GM/DL (3.2-4.5)
[2022-10-01 19:03] LABS: CALCIUM 9.3 MG/DL (8.5-10.1)
[2022-10-01 19:04] LABS: TOTAL PROTEIN 8.5 GM/DL (6.4-8.2)
[2022-10-01 19:06] LABS: BILIRUBIN,TOTAL 0.3 MG/DL (0.1-1.0)
[2022-10-01 19:07] LABS: CREATININE SERUM 2.39 MG/DL (0.60-1.30)
== END ==
LOC: LABNPT 17:40
PROVIDERS: ATTEND Family Medicine
DX: I13.0 Hypertensive heart and chronic kidney disease with heart failure and stage 1 through stage 4 chronic kidney disease, or unspecified chronic kidney disease (principal); I50.9 Heart failure, unspecified; N18.32 Chronic kidney disease, stage 3b; M81.0 Age-related osteoporosis without current pathological fracture; N39.0 Urinary tract infection, site not specified; J44.9 Chronic obstructive pulmonary disease, unspecified
CPT/HCPCS: 80053; 85025; 87070; 87077; 87186; 87205

== ENCOUNTER → 2022-10-19 | Outpatient (CLI) | payer MEDICARE, MEDICAID ==
[~2022-10-19] MED LIST changes: +ARGI1POW4 PO; +ASCO-262 PO; +CHOL12509 PO; +CYAN500T44 PO; +DILT120C88 PO; +LEVO100C4 PO; +LINE600T12 PO; +PANT40TA52 PO; +RIVA15TA PO
== END ==
LOC: WOUNDCARE 08:25
PROVIDERS: ATTEND Family Medicine
DX: I96 Gangrene, not elsewhere classified (principal); L89.610 Pressure ulcer of right heel, unstageable; I89.0 Lymphedema, not elsewhere classified; M62.81 Muscle weakness (generalized); E55.9 Vitamin D deficiency, unspecified; D51.9 Vitamin B12 deficiency anemia, unspecified; R32 Unspecified urinary incontinence; J44.9 Chronic obstructive pulmonary disease, unspecified; I69.320 Aphasia following cerebral infarction; I48.21 Permanent atrial fibrillation; R00.0 Tachycardia, unspecified; L89.220 Pressure ulcer of left hip, unstageable; A49.02 Methicillin resistant Staphylococcus aureus infection, unspecified site; D50.0 Iron deficiency anemia secondary to blood loss (chronic); N17.9 Acute kidney failure, unspecified; E44.0 Moderate protein-calorie malnutrition
CPT/HCPCS: A6212; G0463; 99213

== ENCOUNTER → 2022-10-26 | Outpatient (CLI) | payer MEDICARE, MEDICAID | LOC: WOUNDCARE 11:22 | PROVIDERS: ATTEND Family Medicine | DX: I96 Gangrene, not elsewhere classified (principal); L89.610 Pressure ulcer of right heel, unstageable; I89.0 Lymphedema, not elsewhere classified; M62.81 Muscle weakness (generalized); E55.9 Vitamin D deficiency, unspecified; D51.9 Vitamin B12 deficiency anemia, unspecified; R32 Unspecified urinary incontinence; J44.9 Chronic obstructive pulmonary disease, unspecified; I69.320 Aphasia following cerebral infarction; I48.21 Permanent atrial fibrillation; L89.220 Pressure ulcer of left hip, unstageable; A49.02 Methicillin resistant Staphylococcus aureus infection, unspecified site; D50.0 Iron deficiency anemia secondary to blood loss (chronic); N17.9 Acute kidney failure, unspecified; E44.0 Moderate protein-calorie malnutrition | CPT/HCPCS: A6212; G0463; 99214 ==

== ENCOUNTER → 2022-11-02 | Outpatient (CLI) | payer MEDICARE, MEDICAID | LOC: WOUNDCARE 10:25 | PROVIDERS: ATTEND Family Medicine | DX: I96 Gangrene, not elsewhere classified (principal); L89.610 Pressure ulcer of right heel, unstageable; I89.0 Lymphedema, not elsewhere classified; M62.81 Muscle weakness (generalized); E55.9 Vitamin D deficiency, unspecified; D51.9 Vitamin B12 deficiency anemia, unspecified; J44.9 Chronic obstructive pulmonary disease, unspecified; I69.320 Aphasia following cerebral infarction; I48.21 Permanent atrial fibrillation; L89.220 Pressure ulcer of left hip, unstageable; A49.02 Methicillin resistant Staphylococcus aureus infection, unspecified site; D50.0 Iron deficiency anemia secondary to blood loss (chronic); N17.9 Acute kidney failure, unspecified; E44.0 Moderate protein-calorie malnutrition; R00.0 Tachycardia, unspecified; R32 Unspecified urinary incontinence | CPT/HCPCS: 87070; 87205; G0463; 99213 ==

== ENCOUNTER → 2022-11-09 | Outpatient (CLI) | payer MEDICARE, MEDICAID | LOC: WOUNDCARE 10:27 | PROVIDERS: ATTEND Family Medicine | DX: L89.220 Pressure ulcer of left hip, unstageable (principal); L89.610 Pressure ulcer of right heel, unstageable; I89.0 Lymphedema, not elsewhere classified; R53.1 Weakness; E55.9 Vitamin D deficiency, unspecified; D51.9 Vitamin B12 deficiency anemia, unspecified; R39.81 Functional urinary incontinence; J44.9 Chronic obstructive pulmonary disease, unspecified; I69.320 Aphasia following cerebral infarction; I48.91 Unspecified atrial fibrillation; B95.62 Methicillin resistant Staphylococcus aureus infection as the cause of diseases classified elsewhere; D50.0 Iron deficiency anemia secondary to blood loss (chronic); N17.9 Acute kidney failure, unspecified; E44.0 Moderate protein-calorie malnutrition; B96.5 Pseudomonas (aeruginosa) (mallei) (pseudomallei) as the cause of diseases classified elsewhere; L89.210 Pressure ulcer of right hip, unstageable; I96 Gangrene, not elsewhere classified | CPT/HCPCS: 97597; A6212; G0463 ==

== ENCOUNTER 2022-11-10 13:11 | Outpatient (RCR) | payer MEDICARE, MEDICAID ==
[2022-11-10] MEDS ORDERED: MEROPENEM 500 MG/NS 100 ML IVPB IV ONE ×2 (14:00)
== END 2022-11-24 | disposition home or self-care (01) ==
LOC: SDC 13:11
PROVIDERS: ATTEND Family Medicine
DX: L89.610 Pressure ulcer of right heel, unstageable (principal); I89.0 Lymphedema, not elsewhere classified; M62.81 Muscle weakness (generalized); E55.9 Vitamin D deficiency, unspecified; D51.9 Vitamin B12 deficiency anemia, unspecified; R32 Unspecified urinary incontinence; J44.9 Chronic obstructive pulmonary disease, unspecified; I48.21 Permanent atrial fibrillation; L89.220 Pressure ulcer of left hip, unstageable; D50.0 Iron deficiency anemia secondary to blood loss (chronic); N17.9 Acute kidney failure, unspecified; E44.0 Moderate protein-calorie malnutrition; B96.5 Pseudomonas (aeruginosa) (mallei) (pseudomallei) as the cause of diseases classified elsewhere; L89.210 Pressure ulcer of right hip, unstageable